=== PATIENT | male | born 1945 | race African-American/Black ===

== ENCOUNTER 2021-02-16 09:55 | Outpatient (CLI) | payer MEDICARE, SELFPAY | END 2021-02-16 09:56 | disposition home or self-care (01) | LOC: ANHAUDASC 09:56 | PROVIDERS: PCP Family Medicine; Visit Provider Otolaryngology | DX: H93.8X3 Other specified disorders of ear, bilateral (principal); H90.3 Sensorineural hearing loss, bilateral | CPT/HCPCS: 92557; 92567 ==

== ENCOUNTER 2021-02-27 18:17 | Outpatient (CLI) | payer MEDICARE, SELFPAY ==
--- NOTE | ~2021-02-27 | XR_ITS ---
XR hip LT min 3V w AP pelvis DATE: 02/27/2021 18:51 INDICATION: Left hip pain. Fall one day ago. TECHNIQUE: AP pelvis. 3 views of the left hip. COMPARISON: None FINDINGS: No pelvic fracture or bone destruction is detected. The pubic symphysis and sacroiliac join ts are intact. No fracture or dislocation, avascular necrosis or bone destruction of the left hip. Clips overlie the prostate bed. Arterial calcifications. IMPRESSION: No pelvic or left hip fracture is detected Reviewed, dictated and finalized at location A. STIGATION DIVISION CAPTAIN
== END 2021-02-27 18:18 | disposition home or self-care (01) ==
PROVIDERS: PCP Family Medicine; Visit Provider Physician Assistant
DX: M25.552 Pain in left hip (principal); Z91.81 History of falling
CPT/HCPCS: 73502

== ENCOUNTER 2021-03-17 16:19 | Outpatient (CLI) | payer MEDICARE, SELFPAY ==
--- NOTE | ~2021-03-17 | XR_ITS ---
EXAMINATION: XR hip LT min 3V w AP pelvis EXAM DATE: 03/17/2021 16:41 INDICATION: M25.552 - Pain in left hip After Recent Fall X 1 Week Ago. TECHNIQUE: Left hip frontal, crosstable lateral and 'frog-leg' projections for interpretation. Fronta l projection pelvis. There is no prior study for comparison. FINDINGS: Possible acute nondisplaced subcapital femoral neck fracture. There is moderate symmetric b ilateral hip primary osteoarthritis. 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 Moder ate bilateral hip osteoarthritis. Scattered vascular calcifications. IMPRESSION: Possible left subcapital femoral neck fracture; recommend CT left hip without contrast. Reviewed, dictated and finalized at location A. CTOR INTERNAL COMMUNICATIONS
== END 2021-03-17 16:20 | disposition home or self-care (01) ==
LOC: ANHIMG 16:25
PROVIDERS: PCP Family Medicine; Visit Provider Family Medicine
DX: M17.12 Unilateral primary osteoarthritis, left knee (principal)
CPT/HCPCS: 73502

== ENCOUNTER 2021-03-25 13:07 | Outpatient (CLI) | payer MEDICARE, SELFPAY ==
--- NOTE | ~2021-03-25 | CT_ITS ---
EXAMINATION: CT hip LT wo con DATE: 03/25/2021 13:36 INDICATION: Left hip pain. TECHNIQUE: Computed tomography (CT) of the left hip was performed without intravenous contrast. Autom ated exposure control and iterative reconstruction technique were employed. The dose-length product w as 350.61 mGy-cm. COMPARISON: Left hip radiographs 03/17/2021, 02/27/2021 FINDINGS: There is diverticulosis of the colon without evidence of diverticulitis. There is a subcapi solomon fracture of left femoral neck. The distal fracture fragment demonstrates impaction and 20 degrees posterior angulation. There is moderate left hip osteoarthritis. IMPRESSION: 1. Subacute subcapital fracture of left femoral neck. 2. Moderate left hip osteoarthritis. Reviewed, dictated and finalized at location B. LEAD FORMER
== END 2021-03-25 13:08 | disposition home or self-care (01) ==
PROVIDERS: PCP Family Medicine; Visit Provider Physician Assistant
DX: M16.12 Unilateral primary osteoarthritis, left hip (principal); S72.012A Unspecified intracapsular fracture of left femur, initial encounter for closed fracture; Z91.81 History of falling; R93.6 Abnormal findings on diagnostic imaging of limbs; K57.30 Diverticulosis of large intestine without perforation or abscess without bleeding
CPT/HCPCS: 73700

== ENCOUNTER 2021-05-29 12:05 | Outpatient (CLI) | payer MEDICARE, SELFPAY ==
--- NOTE | ~2021-05-29 | XR_ITS ---
EXAMINATION: XR chest 2V DATE: 05/29/2021 12:21 INDICATION: Cough, unspecified. TECHNIQUE: Frontal and lateral views of the chest were obtained. COMPARISON: Chest single view 07/27/16 FINDINGS: The chest demonstrates clear lungs without pneumonia, pleural effusion, or pneumothorax. Th e heart size is normal. IMPRESSION: 1. No acute cardiopulmonary disease. Reviewed, dictated and finalized at location A.
== END 2021-05-29 12:06 | disposition home or self-care (01) ==
LOC: ANHIMG 12:08
PROVIDERS: PCP Family Medicine; Visit Provider Nurse Practitioner Family
DX: R05.9 Cough, unspecified (principal)
CPT/HCPCS: 71046

== ENCOUNTER 2021-07-24 15:42 | Outpatient (CLI) | payer MEDICARE, SELFPAY ==
--- NOTE | ~2021-07-24 | XR_ITS ---
XR knee RT 2V DATE: 07/24/2021 16:27 INDICATION: Chronic knee pain TECHNIQUE: AP and lateral views COMPARISON: 01/03/2014 bilateral knees FINDINGS: There is osteopenia. 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 There is severe hypertrophic osteoarthritic change at the patellofemoral compartment. There is periar ticular spurring at the medial and lateral compartments, with moderate loss of medial compartment tala nt space. There is irregularity of the apposing articular cortex of the medial femoral condyle and me dial tibial plateau addition to some eburnation and periarticular spurring. There is chondrocalcinosis. Some probable bone infarcts are noted in the proximal tibial metaphysis and shaft. There is extensive calcification of the femoral, popliteal and trifurcation arteries. IMPRESSION: Prominent tricompartment osteophytosis, most severe at the patellofemoral and medial comp artments Osteopenia Mild knee joint effusion Synovial osteochondromatosis Chondrocalcinosis Proximal tibial bone infarcts Osteopenia Reviewed, dictated and finalized at location B. IMPRESSION: Prominent tricompartment osteophytosis, most severe at the patellof emoral and medial compartments Osteopenia Mild knee joint effusion Synovial osteochondromatosis Chondrocalcinosis Proximal tibial bone infarcts Osteopenia
--- NOTE | ~2021-07-24 | XR_ITS ---
XR knee LT 2V DATE: 07/24/2021 16:27 INDICATION: Chronic knee pain TECHNIQUE: AP, lateral views COMPARISON: None FINDINGS: There is osteopenia. There is severe tricompartment osteophytes, particularly severe with very prominent periarticular spu rring and joint space narrowing at the patellofemoral and medial compartments. There is chondrocalcinosis. No fracture or dislocation, periosteal reaction or bone destruction. Mild patellar knee joint effusio n is suggested., Not as prominent as on 01/03/2014. There is prominent femoral and popliteal and trifurcation artery calcification. IMPRESSION: Severe tricompartment osteoarthritis, particularly at the patellofemoral and medial clari rtments Chondrocalcinosis Mild knee joint effusion Varus deformity Reviewed, dictated and finalized at location B. IMPRESSION: Severe tricompartment osteoarthritis, particularly at the patellofe moral and medial compartments Chondrocalcinosis Mild knee joint effusion Varus deformity
== END 2021-07-24 15:43 | disposition home or self-care (01) ==
LOC: ANHIMG 15:57
PROVIDERS: PCP Family Medicine; Visit Provider Nurse Practitioner Family
DX: M25.561 Pain in right knee (principal); M25.562 Pain in left knee; M17.0 Bilateral primary osteoarthritis of knee; M85.89 Other specified disorders of bone density and structure, multiple sites; M25.462 Effusion, left knee; M25.461 Effusion, right knee; D48.0 Neoplasm of uncertain behavior of bone and articular cartilage; M21.162 Varus deformity, not elsewhere classified, left knee
CPT/HCPCS: 73560

== ENCOUNTER 2021-08-25 18:11 | Emergency (ER) | payer MEDICARE, SELFPAY ==
--- NOTE | ~2021-08-25 | CT_ITS ---
EXAMINATION: CT brain wo con DATE: 08/25/2021 20:17 INDICATION: ELIAS . TECHNIQUE: Computed tomography (CT) of the head was performed without intravenous contrast. The mA wa s adjusted according to patient size. Iterative reconstruction technique was employed. The dose-lengt h product was 605.33 mGy-cm. COMPARISON: 07/27/2016. FINDINGS: No acute intracranial hemorrhage or extra-axial fluid collection. No hydrocephalus, mass, or herniation. Prominent pituitary. No acute ischemic infarct. Unremarkable dural venous sinus attenuation. No acute osseous abnormality. The aerated spaces are clear. Mild atrophy. Moderate chronic white matter change. Atherosclerotic intracranial calcifications. Calc ified choroid plexus at the foramen of Shirley. Left basilar consultation. IMPRESSION: No acute intracranial process. Suggestion of pituitary enlargement, consider nonemergent, outpatient MRI of the pituitary for further evaluation. Reviewed, dictated and finalized at location K. IMPRESSION: No acute intracranial process. Suggestion of pituitary enlargement, consider no nemergent, outpatient MRI of the pituitary for further evaluation.
[2021-08-25 18:19] VITALS: BP 198/80; PULSE 91; RESP 16; TEMP 36.1; O2SAT 100
[2021-08-25 18:52] VITALS: BP 198/80; PULSE 91; RESP 16; TEMP 36.1
[2021-08-25 19:43] VITALS: BP 169/73; PULSE 79; RESP 15; TEMP 36.4; O2SAT 100
--- NOTE | 2021-08-25 19:46 | ED.WEAKNESS ---
HPI - Weakness General Chief complaint: Weakness Stated complaint: overheated Time Seen by Provider: 08/25/21 19:35 History of Present Illness HPI Narrative: Pt presents with complaints of generalized weakness now after being outside in the heat after dialysis. Pt says he was dizzy earlier and had a ELIAS but took antivert and those symptoms have resolved. Pt had a SBP in 220'2 to 240's per family member but SBP is 160's now. Pt on new BP med. Related Data Home Medications Medication Instructions Recorded Confirmed ergocalciferol (vitamin D2) 1,250 1,250 mcg PO MONTHLY 06/13/20 07/22/21 mcg (50,000 unit) capsule (Vitamin D2) fish,flax,primrose,borag 1 cap PO DAILY 06/13/20 07/22/21 oils-om3,6,9 no5 400 mg-400 mg-200 mg capsule ([place] 3-6-9 Fatty Acids) aspirin 81 mg tablet,delayed 81 mg PO DAILY 09/10/20 07/22/21 release (Adult Low Dose Aspirin) acetaminophen 325 mg capsule 325 mg PO .prn PRN 09/12/20 07/22/21 docusate sodium 100 mg tablet 100 mg PO BID 09/12/20 07/22/21 midodrine 2.5 mg tablet 2.5 mg PO .prn 09/12/20 07/22/21 sevelamer HCl 800 mg tablet 800 mg PO TID 09/12/20 07/22/21 Allergies Allergy/AdvReac Type Severity Reaction Status Date / Time No Known Allergies Allergy Verified 08/25/21 19:46 Review of Systems Review of Systems: All systems reviewed & are unremarkable except as noted in HPI and below PMFSH Past Medical History Medical History Anxiety Depression Dialysis patient ESRD (end stage renal disease) Gout HLD (hyperlipidemia) Surgical History Surgical History Status post arthroscopy of right knee Status post creation of arteriovenous fistula Family History Family History Father Hypertension Heart disease Mother Leukemia Son Asthma Hypertension Daughter Hypertension Social History Social History (Reviewed 07/22/21 @ 10:44 by KRISTINE Wilhelm Smoking status: Former smoker Second hand tobacco smoke exposure: No Alcohol intake: never Substance use: never Substance use type: does not use Gender identity (if verbalized by the patient): Male Spiritual care concerns: No Exam Const: General: healthy appearing, no acute distress and alert Nutritional Appearance: well nourished Orientation/consciousness: patient oriented x3 Limitations: no limitations HENMT: Head: normal to inspection Neck: Neck: normal visual inspection and no meningeal signs Resp: Effort & Inspection: normal respiratory effort Auscultation: clear to auscultation bilaterally Cardio: Rate: regular rate Rhythm: regular rhythm GI: GI Palp: Yes Soft to palpation Auscultation: normal bowel sounds Skin: General skin exam: normal color Rashes: no rashes Neuro: General: patient oriented x3, moves all extremities, no meningeal signs, no focal motor deficits and CN's II-XI intact bilaterally Cranial nerves: Yes Nystagmus not present Speech: normal speech Gait exam (Neuro): Normal gait present Other: no dizziness with movement of head Extrem: General: normal to inspection and no clubbing, cyanosis or edema Psych: Mental Status: mental status grossly normal Affect: normal affect Attitude: cooperative Course Vital Signs Vital signs: Vital Signs Temperature 97.0 F L 08/25/21 18:19 Pulse Rate 91 08/25/21 18:19 Respiratory Rate 16 08/25/21 18:19 Blood Pressure 198/80 H 08/25/21 18:19 Pulse Oximetry 100 08/25/21 18:19 Temperature 97.5 F L 08/25/21 19:43 Pulse Rate 76 08/25/21 20:02 Respiratory Rate 15 08/25/21 19:43 Blood Pressure 169/73 H 08/25/21 19:43 Pulse Oximetry 100 08/25/21 19:43 MDM - Weakness Lab Data Result diagrams: 08/25/21 20:00 08/25/21 19:59 Labs: Lab Results 08/25/21 08/25/21 Range/Units 19:59 20:00
--- NOTE | 2021-08-25 19:50 | ECG_ITS ---
Measurements Intervals [place] Rate: 75 P: MN: 0 QRS: 24 QRSD: 115 T: 38 QT: 409 QTc: 458 Interpretive Statements SINUS RHYTHM WITH A TYPE 1 SECOND-DEGREE AV BLOCK DELAYED R-WAVE PROGRESSION ABNORMAL ECG NO PREVIOUS ECG AVAILABLE FOR COMPARISON Electronically Signed On 08-26-2021 10:00:30 CDT by Shyam Gabriel M.D.
[2021-08-25 20:02] VITALS: PULSE 76
[2021-08-25 20:14] LABS: Eosinophils Percent Auto 0.5 % (0-4.4); Hematocrit 35.4 % (42.0-52.0); Hemoglobin 11.5 g/dL (14.0-18.0); Immature Granulocyte Absolute 0.02 K/mm3 (0.00-0.031); Immature Granulocyte Percent A 0.5 % (0-0.5); Lymphocytes Absolute Auto 0.52 K/mm3 (0.9-3.2); Lymphocytes Percent Auto 13.5 % (18.3-44.2); Mean Corpuscular HGB Conc 32.5 g/dl (32-36); Mean Corpuscular Hemoglobin 32.9 pg (26-34); Mean Corpuscular Volume 101.1 fl (80-100); Mean Platelet Volume 10.6 fl (7.4-10.4); Monocytes Absolute Auto 0.3 K/mm3 (0.1-0.6); Monocytes Percent Auto 8.6 % (2.6-8.5); Neutrophils Percent Auto 76.9 % (45.5-73.1); Platelet Count Result 148 k/mm3 (150-375); Red Cell Distribution Width 13.8 % (11.5-14.5); White Blood Count 3.8 K/mm3 (4.5-10.0)
[2021-08-25 20:17] LABS: Alanine Aminotransferase 18 U/L (6-50); Albumin Level 4.5 g/dL (3.5-5.1); Alkaline Phosphatase 62 U/L (38-126); Anion Gap 6 mmol/L (8-16); Aspartate Amino Transferase 27 U/L (17-59); Bilirubin,Total 0.5 mg/dL (0.2-1.3); Blood Urea Nitrogen 19 mg/dL (9-20); Calcium 9.6 mg/dL (8.4-10.2); Carbon Dioxide 33 mmol/L (22-30); Chloride 97 mmol/L (98-107); Estimated CRCL calculation 14 ml/min; Estimated Glomerular Filt Rate 16; Glucose 121 mg/dL (65-110); Potassium 4.2 mmol/L (3.4-5.0); Sodium 136 mmol/L (137-145)
[2021-08-25 21:20] VITALS: BP 159/78; PULSE 81; RESP 19; O2SAT 100
== END 2021-08-25 21:22 | disposition home or self-care (01) ==
PROVIDERS: Emergency Provider Emergency Medicine; PCP Family Medicine
DX: R53.1 Weakness (principal); N18.6 End stage renal disease; Z99.2 Dependence on renal dialysis; E78.5 Hyperlipidemia, unspecified; M10.9 Gout, unspecified; Z87.891 Personal history of nicotine dependence; Z79.82 Long term (current) use of aspirin; I44.1 Atrioventricular block, second degree
CPT/HCPCS: 36415; 70450; 80053; 85025; 93005; 99284

== ENCOUNTER 2021-12-19 12:56 | Emergency (ER) | payer MEDICARE, SELFPAY ==
[2021-12-19 12:57] VITALS: BP 163/77; PULSE 70; RESP 18; O2SAT 100
[2021-12-19 13:00] VITALS: BP 163/77; PULSE 67; O2SAT 100
[2021-12-19] MEDS: LIDOCAINE, EPINEPHRINE, TETRACAINE VISCOUS SOLN 3 ML TOPICAL (13:19)
--- NOTE | 2021-12-19 13:19 | ED.GENADULT ---
HPI - General Adult General Chief complaint: Unspecified Stated complaint: fistula issues Time Seen by Provider: 12/19/21 12:59 Source: patient and RN notes reviewed Mode of arrival: EMS Limitations: no limitations History of Present Illness HPI narrative: This is a 76 year old male who presents for evaluation of bleeding dialysis catheter . Patient completed his dialysis 2 hours ago and they have been unable to get area to stop bleeding. They have been intermittently applying pressure with clamp for 2 hours. HE reports there is small area to continue to have slow ooze. He feels some fatigue. He denies chest pain, sob, dizziness. Related Data Home Medications Medication Instructions Recorded Confirmed ergocalciferol (vitamin D2) 1,250 1,250 mcg PO MONTHLY 06/13/20 11/13/21 mcg (50,000 unit) capsule (Vitamin D2) fish,flax,primrose,borag 1 cap PO DAILY 06/13/20 11/13/21 oils-om3,6,9 no5 400 mg-400 mg-200 mg capsule ([place] 3-6-9 Fatty Acids) aspirin 81 mg tablet,delayed 81 mg PO DAILY 09/10/20 11/13/21 release (Adult Low Dose Aspirin) acetaminophen 325 mg capsule 325 mg PO .prn PRN 09/12/20 11/13/21 docusate sodium 100 mg tablet 100 mg PO BID 09/12/20 11/13/21 midodrine 2.5 mg tablet 2.5 mg PO .prn 09/12/20 11/13/21 sevelamer HCl 800 mg tablet 800 mg PO TID 09/12/20 11/13/21 Allergies Allergy/AdvReac Type Severity Reaction Status Date / Time No Known Allergies Allergy Verified 11/13/21 10:13 Review of Systems Review of Systems: All systems reviewed & are unremarkable except as noted in HPI and below Constitutional: Constitutional: Reports fatigue Eyes: Eyes: Denies blurry vision and Denies exophthalmos Respiratory: Respiratory: Denies hemoptysis Hematologic/Lymphatic: Hematologic/Lymphatic: Denies easy bleeding and Denies easy bruising PMFSH Past Medical History Medical History Anxiety Depression Dialysis patient ESRD (end stage renal disease) Gout HLD (hyperlipidemia) Surgical History Surgical History Status post arthroscopy of right knee Status post creation of arteriovenous fistula Family History Family History Father Hypertension Heart disease Mother Leukemia Son Asthma Hypertension Daughter Hypertension Social History Social History Smoking status: Former smoker Second hand tobacco smoke exposure: No Alcohol intake: never Substance use: never Substance use type: does not use Gender identity (if verbalized by the patient): Male Spiritual care concerns: No Exam Const: General: cooperative, healthy appearing and alert Nutritional Appearance: average body habitus Orientation/consciousness: patient oriented x3 Limitations: no limitations HENMT: Head: normal to inspection Mouth: Yes Normal oral and palatal mucosa present, Yes lip normal, Yes oropharynx normal and Yes moist mucous membranes Eyes: EOM: EOMs intact bilaterally Chest: Chest palpation & inspection: normal inspection of the chest Resp: Effort & Inspection: normal respiratory effort Cardio: Other: left arm AV fistula Skin: Other: there appears to be small puncture site at left fistula that will bleeding bright red when pressure taken off Neuro: General: patient oriented x3 and moves all extremities Cranial nerves: Yes CN's II-XII intact bilaterally Cognition (Neuro): normal cognition Speech: normal speech Motor exam (neuro): 5/5 motor strength present throughout Extrem: General: normal to inspection Psych: Appearance: grossly normal Mental Status: mental status grossly normal Course Reevaluation(s) Reevaluation #1: I placed in stitch at small puncture site of AV fistula. Bleeding has stopped. Bandage is in place. We have monitor
[2021-12-19 14:29] LABS: Basophils Percent Auto 0.5 % (0.2-1.2); Eosinophils Absolute Auto 0.1 K/mm3 (0-0.3); Eosinophils Percent Auto 2.1 % (0-4.4); Hematocrit 35.7 % (42.0-52.0); Hemoglobin 11.9 g/dL (14.0-18.0); Immature Granulocyte Absolute 0.02 K/mm3 (0.00-0.031); Immature Granulocyte Percent A 0.5 % (0-0.5); Lymphocytes Absolute Auto 1.32 K/mm3 (0.9-3.2); Lymphocytes Percent Auto 30.4 % (18.3-44.2); Mean Corpuscular HGB Conc 33.3 g/dl (32-36); Mean Corpuscular Hemoglobin 33.2 pg (26-34); Mean Corpuscular Volume 99.7 fl (80-100); Mean Platelet Volume 10.2 fl (7.4-10.4); Monocytes Absolute Auto 0.4 K/mm3 (0.1-0.6); Monocytes Percent Auto 9.7 % (2.6-8.5); Neutrophils Absolute Auto 2.5 K/mm3 (1.3-6.7); Neutrophils Percent Auto 56.8 % (45.5-73.1); Platelet Count Result 158 k/mm3 (150-375); Red Blood Count 3.58 M/mm3 (4.6-6.20); Red Cell Distribution Width 13.7 % (11.5-14.5); White Blood Count 4.3 K/mm3 (4.5-10.0)
[2021-12-19 14:39] LABS: Prothrombin Time 12.8 Seconds (11.1-14.7)
[2021-12-19 15:11] VITALS: BP 166/74; PULSE 72
[2021-12-19 15:15] VITALS: BP 161/74; PULSE 73
[2021-12-19] MEDS: CELLULOSE OXIDIZED 2 x 14 INCH 1 PKT XX (15:15)
[2021-12-19 15:30] VITALS: BP 159/71
== END 2021-12-19 16:30 | disposition home or self-care (01) ==
PROVIDERS: Emergency Provider General Practice; PCP Family Medicine
DX: T82.838A Hemorrhage due to vascular prosthetic devices, implants and grafts, initial encounter (principal); N18.6 End stage renal disease; E78.5 Hyperlipidemia, unspecified; M10.9 Gout, unspecified; F41.9 Anxiety disorder, unspecified; F32.A Depression, unspecified; Z99.2 Dependence on renal dialysis; Z79.82 Long term (current) use of aspirin; Z87.891 Personal history of nicotine dependence; Y84.1 Kidney dialysis as the cause of abnormal reaction of the patient, or of later complication, without mention of misadventure at the time of the procedure
CPT/HCPCS: 12002; 36415; 85025; 85610; 85730; 99283

== ENCOUNTER 2022-06-22 16:32 | Outpatient (CLI) | payer MEDICARE, SELFPAY ==
--- NOTE | ~2022-06-22 | XR_ITS ---
EXAM: XR mandible min 4V DATE: 06/22/2022 17:27 HISTORY: R68.84 - Jaw pain. FELL, HAS LUMP ABOUT AN INCH ABOVE CHIN . COMPARISON: None available. FINDINGS: Symmetric orbits. Aerated spaces are clear. Extensive dental restorations including a dent al implant. Suggestion of perihilar hardware lucency surrounding the implant. Degenerative changes in the cervical spine.. IMPRESSION: No acute osseous finding in the mandible. Possible perihilar hardware lucency at the dent al implant, this may represent hardware related complication, consider dental referral. Reviewed, dictated and finalized at location K. IMPRESSION: No acute osseous finding in the mandible. Possible perihilar hardwa re lucency at the dental implant, this may represent hardware related complicat ion, consider dental referral.
== END 2022-06-22 16:33 | disposition home or self-care (01) ==
PROVIDERS: PCP Family Medicine; Visit Provider Physician Assistant
DX: R68.84 Jaw pain (principal)
CPT/HCPCS: 70110

== ENCOUNTER 2022-11-29 16:11 | Outpatient (CLI) | payer OTHER, SELFPAY ==
[2022-11-29 17:34] LABS: HIV 1/2 Ab P24 Ag Result Negative (Negative)
[2022-11-29 17:59] LABS: Hepatitis C Virus Antibody Negative (Negative)
[2022-12-02 12:07] LABS: Hepatitis B Surface Antigen Negative (Negative)
[2022-12-03 19:41] LABS: Hepatitis Be Antigen Nonreactive
== END 2022-11-29 16:12 | disposition home or self-care (01) ==
PROVIDERS: PCP Family Medicine; Visit Provider Surgery
DX: Z13.9 Encounter for screening, unspecified (principal); W26.9XXA Contact with unspecified sharp object(s), initial encounter
CPT/HCPCS: 36415; 86703; 86803; 87340; 87350; G0432

== ENCOUNTER 2023-07-08 09:41 | Outpatient (CLI) | payer MEDICARE, SELFPAY | END 2023-07-08 09:42 | disposition home or self-care (01) | LOC: ANHAUDASC 09:42 → ANHAUDIO 09:47 | PROVIDERS: PCP Family Medicine; Visit Provider Physician Assistant | DX: H91.93 Unspecified hearing loss, bilateral (principal) | CPT/HCPCS: 99199 ==

== ENCOUNTER 2023-07-25 09:30 | Outpatient (CLI) | payer MEDICARE, SELFPAY ==
[2023-07-25 10:00] LABS: Basophils Percent Auto 0.6 % (0.2-1.2); Eosinophils Absolute Auto 0.1 K/mm3 (0-0.3); Eosinophils Percent Auto 1.9 % (0-4.4); Hematocrit 31.5 % (42.0-52.0); Hemoglobin 10.2 g/dL (14.0-18.0); Immature Granulocyte Absolute 0.02 K/mm3 (0.00-0.031); Immature Granulocyte Percent A 0.6 % (0-0.5); Lymphocytes Percent Auto 35.4 % (18.3-44.2); Mean Corpuscular HGB Conc 32.4 g/dl (32-36); Mean Corpuscular Hemoglobin 33.8 pg (26-34); Mean Corpuscular Volume 104.3 fl (80-100); Mean Platelet Volume 10.2 fl (7.4-10.4); Monocytes Absolute Auto 0.3 K/mm3 (0.1-0.6); Monocytes Percent Auto 9.6 % (2.6-8.5); Neutrophils Absolute Auto 1.6 K/mm3 (1.3-6.7); Neutrophils Percent Auto 51.9 % (45.5-73.1); Platelet Count Result 167 k/mm3 (150-375); Red Blood Count 3.02 M/mm3 (4.6-6.20); Red Cell Distribution Width 14.8 % (11.5-14.5); White Blood Count 3.1 K/mm3 (4.5-10.0)
[2023-07-25 11:00] LABS: Alanine Aminotransferase 17 U/L (6-50); Albumin Level 4.3 g/dL (3.5-5.1); Alkaline Phosphatase 45 U/L (38-126); Anion Gap 13 mmol/L (4-12); Aspartate Amino Transferase 26 U/L (17-59); Bilirubin,Total 0.6 mg/dL (0.2-1.3); Blood Urea Nitrogen 68 mg/dL (9-20); Calcium 9.7 mg/dL (8.4-10.2); Carbon Dioxide 30 mmol/L (22-30); Chloride 100 mmol/L (98-107); Cholesterol 119 mg/dL (0-200); Estimated Glomerular Filt Rate 7; Glucose 84 mg/dL (65-110); HDL Direct 51 mg/dL; Potassium 4.4 mmol/L (3.4-5.0); Sodium 143 mmol/L (137-145); Triglycerides 105 mg/dL (<150)
[2023-07-25 11:12] LABS: LDL Cholesterol Direct 47 mg/dL
[2023-07-25 13:21] LABS: Hemoglobin A1C 4.9 % (<5.7)
[2023-07-25 23:31] LABS: Folic Acid > 20.0 ng/mL (2.76->20)
== END 2023-07-25 09:31 | disposition home or self-care (01) ==
LOC: ANHLAB 09:32
PROVIDERS: PCP Family Medicine; Visit Provider Physician Assistant
DX: E11.9 Type 2 diabetes mellitus without complications (principal); R20.0 Anesthesia of skin; R20.2 Paresthesia of skin; I12.0 Hypertensive chronic kidney disease with stage 5 chronic kidney disease or end stage renal disease; N18.6 End stage renal disease; D64.9 Anemia, unspecified; D63.1 Anemia in chronic kidney disease
CPT/HCPCS: 36415; 80053; 80061; 82607; 82746; 83036; 84443; 85025

== ENCOUNTER 2023-09-20 13:44 | Outpatient (CLI) | payer MEDICARE, SELFPAY | END 2023-09-20 13:45 | disposition home or self-care (01) | LOC: ANHAUDIO 13:44 | PROVIDERS: PCP Family Medicine; Visit Provider Physician Assistant | DX: H90.3 Sensorineural hearing loss, bilateral (principal) | CPT/HCPCS: 92557; 92567 ==

== ENCOUNTER 2023-10-12 09:59 | Outpatient (CLI) | payer MEDICARE, SELFPAY ==
--- NOTE | 2023-10-12 11:30 | NEURO_ITS ---
Impression: # Complains of numbness of hands. CRD with 3 times a week hemodialysis. # Bilateral moderate Carpal Tunnel Syndrome. # Bilateral ulnar neuropathy across the elbows of mild degree. # Abnormal Needle/EMG exam. Nerve Conduction Studies Anti Sensory Summary Table Stim Site NR Peak (ms) P-T Amp (?V) Site1 Site2 Delta-P (ms) Dist (cm) Gary (m/s) Left Median Anti Sensory (2-3nd Digit) Wrist 5.7 18.9 Wrist 2-3nd Digit 5.7 14.0 25 Wrist 6.2 7.0 Wrist 2-3nd Digit 5.7 14.0 25 Right Median Anti Sensory (2-3nd Digit) Wrist 6.3 15.9 Wrist 2-3nd Digit 6.3 14.0 22 Wrist 5.2 23.6 Wrist 2-3nd Digit 6.3 14.0 22 Left Radial Anti Sensory (Base 1st Digit) Wrist 2.5 6.8 Wrist Base 1st Digit 2.5 0.0 Right Radial Anti Sensory (Base 1st Digit) Wrist 2.9 5.2 Wrist Base 1st Digit 2.9 0.0 Left Ulnar Anti Sensory (5th Digit) Wrist 3.4 29.4 Wrist 5th Digit 3.4 14.0 41 Right Ulnar Anti Sensory (5th Digit) Wrist 3.8 31.2 Wrist 5th Digit 3.8 14.0 37 Motor Summary Table Stim Site NR Onset (ms) O-P Amp (mV) Site1 Site2 Delta-0 (ms) Dist (cm) Gary (m/s) Left Median Motor (Abd Poll Brev) Wrist 5.5 2.5 Elbow Wrist 6.1 32.0 52 Elbow 11.6 0.7 Right Median Motor (Abd Poll Brev) Wrist 5.9 2.6 Elbow Wrist 6.4 32.0 50 Elbow 12.3 3.4 Left Ulnar Motor (Abd Dig Minimi) Wrist 2.5 4.1 A Elbow Wrist 7.3 34.0 47 A Elbow 9.8 1.8 B Elbow Wrist 5.8 28.0 48 B Elbow 8.3 2.0 Right Ulnar Motor (Abd Dig Minimi) Wrist 2.9 5.2 A Elbow Wrist 7.7 35.0 45 A Elbow 10.6 2.9 B Elbow Wrist 5.0 25.0 50 B Elbow 7.9 4.2 F Wave Studies NR F-Lat (ms) L-R F-Lat (ms) Left Median (Mrkrs) (Abd Poll Brev) 35.91 1.46 Right Median (Mrkrs) (Abd Poll Brev) 37.37 1.46 Left Ulnar (Mrkrs) (Abd Dig Min) 33.13 0.00 Right Ulnar (Mrkrs) (Abd Dig Min) 33.13 0.00 EMG Side Muscle Nerve Root Ins Act Fibs Amp Dur Recrt Comment Right 1stDorInt Ulnar C8-T1 Nml Nml Nml >12ms +1 Right Ext Indicis Radial (Post Int) C7-8 Nml Nml Nml Nml Nml Right Ext Digitorum Radial (Post Int) C7-8 Nml Nml Nml Nml Nml Right BrachioRad Radial C5-6 Nml Nml Nml Nml Nml Right PronatorTeres Median C6-7 Nml Nml Nml Nml Nml Right Abd Poll Brev Median C8-T1 Nml Nml Nml >12ms +2 Right ABD Dig Min Ulnar C8-T1 Nml Nml Nml Nml Nml Left 1stDorInt Ulnar C8-T1 Nml Nml Nml >12ms +1 Left Ext Indicis Radial (Post Int) C7-8 Nml Nml Nml Nml Nml Left Ext Digitorum Radial (Post Int) C7-8 Nml Nml Nml Nml Nml Left BrachioRad Radial C5-6 Nml Nml Nml Nml Nml Left PronatorTeres Median C6-7 Nml Nml Nml Nml Nml Left Abd Poll Brev Median C8-T1 Nml Nml Nml >12ms +2 Left ABD Dig Min Ulnar C8-T1 Nml Nml Nml Nml Nml MTDD
== END 2023-10-12 10:00 | disposition home or self-care (01) ==
LOC: ANHNEURO 10:01
PROVIDERS: PCP Family Medicine; Visit Provider Physician Assistant
DX: R20.0 Anesthesia of skin (principal); R20.2 Paresthesia of skin; G56.03 Carpal tunnel syndrome, bilateral upper limbs; G56.23 Lesion of ulnar nerve, bilateral upper limbs
CPT/HCPCS: 95886; 95911

== ENCOUNTER 2023-10-28 15:07 | Outpatient (CLI) | payer MEDICARE, SELFPAY ==
--- NOTE | ~2023-10-28 | XR_ITS ---
EXAMINATION: XR chest 2V 10/28/2023 15:29 INDICATION: Cough PROCEDURE: 2 view chest COMPARISON: 05/29/2021 FINDINGS: The lungs are clear. The cardiomediastinal silhouette is within normal limits. There are no pleural effusions. There is no pneumothorax suspected. IMPRESSION: 1: NO ACUTE CARDIOPULMONARY DISEASE. Reviewed, dictated and finalized at location B.
== END 2023-10-28 15:08 | disposition home or self-care (01) ==
PROVIDERS: PCP Family Medicine; Visit Provider Physician Assistant
DX: R05.9 Cough, unspecified (principal)
CPT/HCPCS: 71046

== ENCOUNTER 2024-03-08 14:06 | Outpatient (CLI) | payer MEDICARE, SELFPAY ==
--- NOTE | ~2024-03-08 | XR_ITS ---
XR wrist RT min 3V Ordering provider: Melisa Neely PA-C History: . M25.531 - Pain in right wrist, effusion . Comparison: None. FINDINGS: BONES: No acute fracture or dislocation. No definite scaphoid fracture. Cystic changes in the scapho id and lunate bones. JOINT SPACES: Normal. SOFT TISSUES: Vascular calcifications. IMPRESSION: No acute osseous abnormality right wrist. Osteoarthritic changes of the scapholunate joint. Reviewed, dictated and finalized at location A. CLEANING MANAGER
== END 2024-03-08 14:07 | disposition home or self-care (01) ==
PROVIDERS: PCP Family Medicine; Visit Provider Physician Assistant Medical
DX: M19.031 Primary osteoarthritis, right wrist (principal)
CPT/HCPCS: 73110

== ENCOUNTER 2024-05-10 17:59 | Inpatient (IN) | payer MEDICARE, SELFPAY ==
--- NOTE | ~2024-05-10 | XR_ITS ---
XR chest 1V portable Ordering provider: Lola Sepulveda MD History: 78 years Male with . fever . Comparison: October 28, 2023 FINDINGS: MEDIASTINUM: The cardiac silhouette is not enlarged. Congestive avery. LUNGS: No effusions or pneumothorax. Opacification in the left lung base seen suggestive of atelectasis versus pneumonia. OTHER: No free air under the diaphragm. Degenerative changes of the spine. IMPRESSION: Left basal atelectasis versus pneumonia. Reviewed, dictated and finalized at location A. SMELLER
--- NOTE | ~2024-05-10 | CT_ITS ---
CT brain wo con Ordering provider: Alexandria Mcrae PA-C History: 78 years Male with . AMS . Comparison: August 25, 2021 Technique: CT of the head without contrast. Radiation reduction technique utilized. The dose-length product was 605.33 mGy-cm. FINDINGS: BRAIN PARENCHYMA AND CSF SPACES: No midline shift, mass effect or hemorrhage. The brain parenchyma a nd CSF spaces are otherwise normal. VISUALIZED PARANASAL SINUSES: Well aerated. MASTOIDS: Well aerated. BONES: The bones appear intact. SOFT TISSUES: Visualized nasopharynx is normal. Superficial soft tissues are normal. IMPRESSION: No acute intracranial findings. Reviewed, dictated and finalized at location A. SCHOOL CUSTODIAN
--- OUTSIDE RECORDS SUMMARY | 2024-05-10 18:04 | XMS_ITS | Clinical Summary ---
Author Organization [facility] Address [address] [place] [address] Phone Care Team Providers Care Peoplesoft Programmer Name Role Phone Rudy Estrada MD Primary Care Provider Unavail able Allergies No known active allergies Medications meclizine (ANTIVERT) 25 mg tablet Take one tablet every 8 hours as needed for vertigo 5 Tablet 01/06/2018 12:31 PM CDT 8 Active allopurinoL (ZYLOPRIM) 100 mg tablet Take 100 mg by mouth. Active ALPRAZolam (XANAX) 0.25 mg tablet TK 1 T PO BID 8 Active amLODIPine (NORVASC) 10 mg tablet TK 1 T PO QD 9 Active atenoloL (TENORMIN) 100 mg tablet Take 100 mg by mouth. 0 Active atorvastatin (LIPITOR) 80 mg tablet TK 1 T PO QD 0 Active blood sugar diagnostic (OneTouch Ultra Blue Test Strip) Strip TEST DAILY UTD 0 Active vitamin B complex-vitamin C-folic acid (Triphrocaps) 1 mg Capsule TAKE 1 CAPSULE DAILY 0 Active cloNIDine HCL (CATAPRES) 0.1 mg tablet 0 Active ergocalciferol (VITAMIN D2) 50,000 unit capsule TAKE ONE CAPSULE BY MOUTH EVERY 30 DAYS 0 Active furosemide (LASIX) 40 mg tablet TK 2 TS PO IN THE MORNING AND 2 TS IN THE EVENING 0 Active hydrALAZINE (APRESOLINE) 50 mg tablet TK 1 T PO TID 0 Active metoprolol succinate (TOPROL XL) 25 mg Extended Release 24 hour tablet Take 25 mg by mouth. 0 Active nateglinide (STARLIX) 120 mg Tablet Active paricalcitoL (ZEMPLAR) 1 mcg Capsule TAKE 1 CAPSULE(1 MCG) BY MOUTH DAILY 0 Active sevelamer carbonate (RENVELA) 800 mg Tablet 0 Active sodium bicarbonate 650 mg tablet 0 Active triamcinolone acetonide (KENALOG) 0.1 % Ointment APPLY A THIN LAYER TO THE AFFECTED AREA TWICE DAILY 0 Active Active Problems Problem Noted Date Diagnosed Date Anemia of chronic renal failure, stage 5 020 Social History Tobacco Use Types Packs/Day Years Used Date Smoking Tobacco: Former Cigarettes 0.5 10 1 04/06/1979 - 02/04/1990 Smokeless Tobacco: Never Tobacco Cessation:Counseling Given: No Alcohol Use Standard Drinks/Week Comments Never 0 (1 standard drink = 0.6 oz pur e alcohol) Sex and Gender Information Value Date Recorded Sex Assigned at Not on file Legal Sex Male 11:35 AM CDT Gender Identity Not on file Sexual Orientation Not on file Last Filed Vital Signs Vital Sign Reading Time Taken Comments Blood Pressure 163/78 05/09/2020 11:11 AM SAWDUST MACHINE OPERATOR Pulse 63 05/09/2020 11:11 AM SAWDUST MACHINE OPERATOR Temperature 36.4 C (97.5 F) 05/09/2020 11:11 AM SAWDUST MACHINE OPERATOR Respiratory Rate - - Oxygen Saturation 98% 05/09/2020 11: 11 AM SAWDUST MACHINE OPERATOR Inhaled Oxygen Concentration - - Weight 106.5 kg (234 lb 14.4 oz) 2020 11:11 AM SAWDUST MACHINE OPERATOR Height 182.9 cm (6') 05/09/2020 11:11 AM SAWDUST MACHINE OPERATOR Body Mass Index 31.86 05/09/2020 11:11 AM SAWDUST MACHINE OPERATOR Plan of Treatment Health Maintenance Due Date Last Done Comments DTAP/TDAP/TD VACCINES (1 - Tdap) 06/06/1962 ZOSTER VACCINE (1 of 2) 06/06/1993 RSV VACCINE (60+ or ) (1 - 1-dose 75+ series) 06/06/2018 INFLUENZA VACCINE (#1) 2023 12/27/2019 PNEUMOCOCCAL VACCINE 50+ YEARS Completed 02/13/2014 , 02/28/2012 Care Teams Peoplesoft Programmer Relationship Specialty Start Date End Date Rudy Estrada MD PCP - General Internal Medicine 02/05/20
--- OUTSIDE RECORDS SUMMARY | 2024-05-10 18:04 | XMS_ITS ---
Author Organization [facility] Address [address] [place] [address] Care Team Providers Care Hydrometeorologist Name Role Phone Silke Wilson DO Primary Care Provider Unavailabl e zzzzMigration, zzzzProvider Unavailable Unav ailable Allergies Allergen (clinical drug ingredient) Drug/Non Drug Allergy documented on EMR Reaction Allergy Type Onset Date Status Non-steroidal anti-inflammatory agent (FN) NSAIDs Notes: RENAL FAILURE Drug Allergy 11/18/2004 Active REASON FOR VISIT EMR-Rogelio Medications Medication SIG (Take, Route, Frequency, Duration) Notes Start Date End Date Status Ferrous Sulfate 324 (65 Fe) MG take 1 tablet by oral route 2 times a day Oral 2 Active RENAL CAPS 1 mg take 1 capsule by oral route once daily Oral 1 *Reorder from [employer] for eRx and Interaction Alerts* Active OneTouch Ultra TEST DAILY DIRECTED In Vitro 09/20/2019 Active Triamcinolone Acetonide 0.10% apply a thin layer to the affected area(s) by topical route 2 times per day External 2 02/20/2020 Active Vitamin D (Ergocalciferol) 45409 UNIT take 1 capsule (50,000 unit) by oral route once weekly Oral [id number] Active Sodium Bicarbonate 650 MG take 1 tablet by oral route daily Oral 1 Active Lasix 40 MG take 1 tablet (40 mg) by oral route 2 times per day Oral 2 Active Encounters Encounter Location Date Provider Diagnosis [facility] [address] [address] [place] [address] 01/02/2023 zzzzProvider zzzzMigration Plan Of Treatment No Information Progress Notes * Oscar PRETTY JrDOB: (78 yo M)Acc No.[id number]:01/02/2023 Patient: Oscar LYNN Jr :1945 A ge:77 Y S ex:Male Address:[address] [facility] [address] Subjective: * Chief Complaints: * E MR-Rogelio * Medical History: * Surgical History: * Hospitalization/Major Diagno stic Procedure: * Family History: F ather: Father Notes: at 69 from a stroke . M igrated Family History: Sibling-Sister Notes: 9 other siblings are healthy apparently 1-2 of them have dementia . M other: Mother Notes: of leukemia at 55 . B rother: Sibling-Brother Notes: 2 brothers one with hypertension and related problems and one with coronary artery disease . * Social History: M igrated Social History: M igrated Social History: Marital Status :: , Occupation :: disability , Substance Use :: Alcohol - No significant history of usage , Substance Use :: Tobacco :: Never. * Medications: T akingRENAL CAPS 1 mg Capsule take 1 capsule by oral route once daily Oral 1 , Notes to Pharmacist: *Reorder from [employer] for eRx and Interaction Alerts*Triamcinolone Acetonide 0.10% Ointment apply a thin layer to the affected area(s) by topical route 2 times per day External 2 Ferrous Sulfate 324 (65 Fe) MG Tablet Delayed Release take 1 tablet by oral route 2 times a day Oral 2 Lasix 40 MG Tablet take 1 tablet (40 mg) by oral route 2 times per day Oral 2 OneTouch Ultra Strip TEST DAILY DIRECTED In Vitro OneTouch Ultra Strip test blood sugar once daily In Vitro Vitamin D (Ergocalciferol) 47027 UNIT Capsule take 1 capsule (50,000 unit) by oral route once weekly Oral [id number] Sodium Bicarbonate 650 MG Tablet take 1 tablet by oral route daily Oral 1 Taking RENAL CAPS 1 mg Capsule take 1 capsule by oral route once daily Oral 1 , Notes to Pharmacist: *Reorder from [employer] for eRx and Interaction Alerts*Taking Triamcinolone Acetonide 0.10% Ointment apply a thin layer to the affected area(s) by topical route 2 times per day External 2 Taking Ferrous Sulfate 324 (65 Fe) MG Tablet Delayed Release take 1 tablet by oral route 2 times a day Oral 2 Taking Lasix 40 MG Tablet take 1 tablet (40 mg) by oral route 2 times per day Oral 2 Taking OneTouch Ultra Strip TEST DAILY DIRECTED In Vitro Taking OneTouch Ultra Strip test blood sugar once daily In Vitro Taking Vitamin D (Ergocalciferol) 75561 UNIT Capsule take 1 capsule (50,000 unit) by oral route once weekly Oral 0.089987440340126 Taking Sodium Bicarbonate 650 MG Tablet take 1 tablet by oral route daily Oral 1 * Allergies: N SAIDs: Notes: RENAL FAILURE - Allergy - Onset Date 11/18/2004 Objective: * Vitals: * Physical Examination: Assessment: Plan: * Treatment: * Procedure Codes: * * Date:
--- OUTSIDE RECORDS SUMMARY | 2024-05-10 18:04 | XMS_ITS | Patient Health Record ---
Author Organization [facility] Address [address] [place] [address] Care Team Providers Care Canine Service Instructor Trainer Name Role Phone Steve HARRIS Silke Primary Care Provider Unavailabl e Reason For Referral No Information Medications Medication SIG (Take, Route, Frequency, Duration) Notes Start Date End Date Status Ferrous Sulfate 324 (65 Fe) MG take 1 tablet by oral route 2 times a day Oral 2 Active RENAL CAPS 1 mg take 1 capsule by oral route once daily Oral 1 *Reorder from [employer] for eRx and Interaction Alerts* Active OneTouch Ultra TEST DAILY DIRECTED In Vitro 09/20/2019 Active Sodium Bicarbonate 650 MG take 1 tablet by oral route daily Oral 1 Active Triamcinolone Acetonide 0.10% apply a thin layer to the affected area(s) by topical route 2 times per day External 2 02/20/2020 Active Vitamin D (Ergocalciferol) 66805 UNIT take 1 capsule (50,000 unit) by oral route once weekly Oral 0.677250818105786 Active Lasix 40 MG take 1 tablet (40 mg) by oral route 2 times per day Oral 2 Active Immunizations Vaccine Route Administration Date Status Comme nts Td (adult) Unknown 05/07/2008 Administered migrated LegPatid= [id number] Date=05/07/2008 Vac= TD Pneumococcal conjugate PCV 13 Unknown 02/09/2007 Administered migrated LegPatid= [id number] Date=02/09/2007 Vac= Pneumonia vaccine Pneumococcal conjugate PCV 13 IM Intramuscular 05/19/2015 Administered Infuenza, trivalent, recombinant, preservative free Unknown 02/09/2007 Administered migrated LegPatid= [id number] Date=02/21/2003 Vac= Influenza Influenza high dose > 65 [facility] IM Intramuscular 11/28/2015 Administered Influenza high dose > 65 [facility] IM Intramuscular 01/05/2017 Administered Influenza high dose > 65 [facility] IM Intramuscular 12/30/2017 Administered Influenza high dose > 65 [facility] IM Intramuscular 01/25/2019 Administered Problems Problem Type SNOMED Code ICD Code Onset Dates Problem Status W/U Status Risk Notes Problem Generalized anxiety disorder (71077456) Generalized anxiety disorder (300.02) 2004 Active confirmed Problem Nephrotic syndrome (47579562) Nephrotic syndrome (581) 2005 Active confirmed 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 Creatinine 5.2010. dialysis pending Problem Chronic kidney disease (disorder) (293008588) Chronic kidney disease (CKD) (585) 2005 Active confirmed dialysis pending Anemia, on Procrit. secondary hyperparathyro idism. On zemplar, PTH around 180 Problem Malignant tumor of prostate (453332359) Malignant neoplasm of prostate (C61) Active confirmed radiation therapy 02/2013 Problem Pure hypercholesterolem ia (254424748) Pure hypercholesterol emia (E78.0) 2004 Active confirmed Problem Major depression, single episode (42228016) Major depressive disorder, single episode, unspecified (F32.9) Active confirmed Problem Osteoarthritis (527636102) Unspecified osteoarthritis, unspecified site (M19.90) 2004 Active confirmed BOTH KNEES Problem Chronic kidney disease stage 4 (040867956) Chronic kidney disease, stage 4 (severe) (N18.4) 2016 Active confirmed Problem Erectile dysfunction (disorder) (333989312) Male erectile dysfunction, unspecified (N52.9) 2008 Active confirmed Problem Electrocardiogram abnormal (720289898) Abnormal electrocardiogra m [ECG] [EKG] (R94.31) 2016 Active confirmed Problem Type II diabetes mellitus without complication (536206277) Type 2 diabetes mellitus without complications (E11.9) 2004 Active confirmed Problem Essential hypertension (58067734) Essential (primary) hypertension (I10) Active confirmed Problem Ventricular tachycardia (51010050) Ventricular tachycardia (I47.2) 2016 Active confirmed Plan Of Treatment No Information Insurance Providers Payer Name Payer Address Payer Phone Subscriber Number Group Number Insured Name Patient Relationship to Insured Coverage Start Date Coverage End Date [facility] Medicare Advantage [address] [address] [place], [place] [id number] [phone] [id number] Oscar Barker Self - patient is the insured 0 DO NOT USE [id number] Oscar Barker Self - patient is the insured 7 DO NOT USE [place] [id number] Oscar Barker Self - patient is the insured 7 [facility] [employer] [address] [address] [place] [address] [phone] [id number] Oscar Barker Self - patient is the insured 1 [employer] [place] [address] [place] [address] [id number] MjOscar horvath Self - patient is the insured 1
--- OUTSIDE RECORDS SUMMARY | 2024-05-10 18:04 | XMS_ITS | Data Portability ---
[facility] Address [address] [place] [address] Assessment No assessment recorded. Plan of Treatment Reminders Order Date Submit Date Provider Last Modified By Organization Details Last Modified Time Details Appointments None record ed. Lab None record ed. Referral None record ed. Procedures None record ed. Surgeries None record ed. Imaging None record ed. Medication Orders None record ed. Patient TargetsNo targets recorded. Patient InstructionsNo instructions recorded. Reason for Referral None Reported. Medical Equipment None Reported. Vitals None Recorded Social History None recorded. Functional Status None recorded. Mental Status None recorded. Family History Nothing Reported. Medical History No medical history recorded. Immunizations Vaccine Type Date Status Note Provider Nam e and Address Organization Details Recorded Time COVID-19, mRNA, LNP-S, PF, 100 mcg/0.5mL dose or 50 mcg/0.25mL dose 05/08/2020 completed Alexandria Conner MA [facility], [facility] 05/08/2020 14:41:58 COVID-19, mRNA, LNP-S, PF, 100 mcg/0.5mL dose or 50 mcg/0.25mL dose 06/05/2020 completed Patricia Rivas MA [facility] 06/05/2020 12:25:28 Past Encounters Encounter ID Performer Location Encounter Start Date Encounter Closed Date Diagnosis/Indication Diagnosis SNOMED-CT Code Diagnosis ICD10 Code Diagnosis Note [id number] EVELIA Arcos 14 IM 4 [facility] [place] [id number] 1 05/08/2020 10:38:03 05/09/2020 07:47:07 Administration of SARS-CoV-2 antigen vaccine 843449542 Z23 [id number] EVELIA Arcos 14 IM 4 [facility] [place] [id number] 06/05/2020 10:09:20 06/06/2020 18:23:42 Administration of SARS-CoV-2 antigen vaccine 164448028 Z23 Health Concerns Section Related Observation LastModified by Organization Detai ls LastModified Time None Recorded Concern Status LastModified by Organization Details LastModified Time None Recorded Advance Directives Directive None Recorded Payers Encounter Date Sequence Insurance Name Policy Number Policy [place] Covered Member ID [place] Member ID Guarantor Name 05/08/2020 1 [facility] (PPO) [id number] Oscar Barker [id number] Oscar Barker 06/05/2020 1 [facility] (MEDICARE REPLACEMENT/A DVANTAGE - HMO) [id number] Oscar Barker [id number] Oscar Barker 06/05/2020 [place] Oscar Barker Jr [id number] Oscar Barker
--- OUTSIDE RECORDS SUMMARY | 2024-05-10 18:04 | XMS_ITS ---
Author Organization [facility] Address [address] [facility] [address] [place] [address] Care Team Providers Care Clam Sorter Name Role Phone Silke Wilson DO Primary Care Provider Unavailabl e zzzzMigration, zzzzProvider Unavailable Unav ailable REASON FOR VISIT EMR-Rogelio Encounters Encounter Location Date Provider Diagnosis [facility] [address] [facility] [address] [place] [address] 01/01/2023 zzzzProvider zzzzMigration Plan Of Treatment Medication Medication Name Sig Start Date Stop Date Notes Metoprolol Succinate ER 25 MG take 1 tablet (25 mg) by oral route once daily for 90 days Oral 1 for 04/02/2020 03/28/2021 Xanax 0.25 MG take 1 tablet by ora l route 2 times a day for 30 days Oral 2 for 07/30/2019 09/28/2019 TrueTrack Test use as directed 1 qd In Vitro for 100 10/30/2012 02/07/2013 guaiFENesin ER 600 MG take 1 tablet (600 mg) by oral route every 12 hours for 10 days Oral 2 for 10 11/30/2010 12/10/2010 Colcrys 0.6 MG take 0.5 tablet by oral route daily for 30 days Oral 1 for 11/09/2013 12/09/2013 Triamcinolone Acetonide 55 mcg INHALE 2 SPRAYS IN EACH NOSTRIL EVERY DAY Nasal 01/15/2013 *Pick strength-form from [facility] for eRX* Paricalcitol 1 mcg take 1 capsule (1 mc g) by oral route once daily Oral 1 Ondansetron 4 MG Take 1 (4 mg) disintegrating tablet every 6 hours PRN Oral Triamcinolone Acetonide 0.10% apply a thin layer to the affected area(s) by topical route 2 times per day for 21 days External 2 for 21 09/27/2017 HYDROcodone-Acetaminop hen 5-300 MG take 1 tablet by oral route 3 times a day as needed for 30 days Oral 3 for 11/28/2015 12/28/2015 Nateglinide 120 mg TAKE 1 TABLET 3 TIME S A DAY30 MINUTES PRIOR TO MEALS for 90 days Oral for 04/02/2020 03/28/2021 Escitalopram Oxalate 10 MG TAKE 1 TABLET BY MOUTH EVERY DAY for 90 days Oral for 04/02/2020 09/24/2021 CLONIDINE TAB 0.1MG TAKE 1 TABLET 4 TIME S DAILY 11/16/2018 *Reorder from [facility] for eRx and Interaction Alerts* cloNIDine HCl 0.1 MG take 1 tablet (0.1 mg) by oral route 4 times per day for 90 days Oral 4 for 04/02/2020 03/28/2021 OneTouch Ultra TEST DAILY DIRECT ED In Vitro 09/19/2017 06/11/2019 HYDRALAZINE 50MG TABLETS(ORANGE) TAKE 1 TABLET BY MOUTH THREE TIMES DAILY for 03/31/2020 05/10/2020 *Reorder from [facility] for eRx and Interaction Alerts* Losartan Potassium 50 MG take 1 tablet (50 mg) by oral route once daily for 30 days Oral 1 for 30 03/04/2011 04/03/2011 Levaquin 250 MG 2 today then 1 daily for 7 days Oral for 7 05/10/2012 05/17/2012 Lipitor 80 MG take 1 tablet (80 mg ) by oral route once daily for 30 days Oral 1 for 30 03/04/2011 04/03/2011 One Touch Delica Lancets use as directed for 90 days Miscellaneous for 06/24/2011 06/18/2012 Viagra 100 MG take 0.5 tablet by oral route daily for 30 days Oral 1 for 07/27/2012 08/26/2012 Aspirin Adult Low Strength 81 MG take 1 tablet (81 mg) by oral route once daily for 30 days Oral 1 for 30 04/14/2017 05/14/2017 amLODIPine Besylate 10 MG TAKE 1 TABLET DAILY for 90 days Oral for 04/02/2020 03/28/2021 Atenolol 100 MG TAKE 1 & 1/2 (ONE & ONE-HALF) TABLETS BY MOUTH ONCE DAILY for 90 days Oral for 04/02/2020 12/28/2020 Meclizine HCl 25 MG take 1 tablet (25 mg ) by oral route 3 times per day as needed Oral 3 08/03/2016 Medrol 4 MG take as directed for 6 days Oral for 6 01/16/2019 01/22/2019 Colchicine 0.6 MG TAKE 1 TABLET BY ORA L ROUTE DAILY FOR 30 DAYS Oral 12/30/2017 03/30/2018 Allopurinol 100 MG take 1 tablet by ora l route 2 times a day for 90 days Oral 2 for 07/21/2018 04/11/2020 Lovaza 1 GM take 2 capsules (2 gram) by oral route 2 times per day for 90 days Oral 2 for 04/02/2020 03/28/2021 Uloric 40 MG take 1 tablet (40 mg ) by oral route once daily for 90 days Oral 1 for 10/03/2013 01/01/2014 Gabapentin 100 MG take 1 capsule (100 mg) by oral route BID Oral 1 for 04/02/2020 03/28/2021 Calcium 667 mg TID oral *Pick stre ngth-form from [facility] for eRX* Opana ER 5 mg take 1 tablet (5 mg) by oral route every 12 hours on an empty stomach, 1 hour before or 2 hours after a meal swallowing whole. Do not break, crush, dissolve and/or chew. for 30 days Oral 2 for 01/09/2015 02/08/2015 *Reorder from [facility] for eRx and Interaction Alerts* Allopurinol 300 MG take 1 tablet (300 m g) by oral route once daily for 90 days Oral 1 for 04/02/2020 12/28/2020 Triamcinolone Acetonide 55 MCG/ACT INHALE 2 SPRAYS IN EACH NOSTRIL EVERY DAY FOR 30 DAYS Nasal 08/19/2016 09/18/2016 OneTouch Ultra Test TEST DAILY DIRECT ED miscellaneous 09/01/2016 05/24/2018 Zithromax Z-Danny 250 MG take 2 tablets (5 00 mg) by oral route once daily for 1 day then 1 tablet (250 mg) by oral route once daily for 4 days Oral 1 for 5 11/30/2010 12/05/2010 Lasix 40 MG take 1 tablet (40 mg ) by oral route once daily Oral 1 Fluticasone Propionate 50 MCG/ACT inhale 2 sprays (100 mcg) in each nostril by intranasal route once daily as needed for 14 days Nasal 1 for 14 05/03/2016 05/17/2016 Amoxicillin 500 MG take all 4 PO prior to procedure Oral for 02/09/2012 02/10/2012 hydrALAZINE HCl 50 MG TAKE 1 TABLET BY M OUTH THREE TIMES DAILY Oral for 04/02/2020 03/28/2021 ALPRAZolam 0.25 MG TAKE 1 TABLET BY PARMINDER TH TWICE DAILY for 30 days Oral for 30 06/03/2020 09/01/2020 Atorvastatin Calcium 80 MG TAKE 1 TABLET DAILY for 90 days Oral for 04/02/2020 12/28/2020 Nasacort Allergy 24HR 55 MCG/ACT spray 2 sprays in each nostril by intranasal route once daily for 1 day Nasal 1 for 11/17/2010 11/20/2010 Lisinopril 20 mg TAKE 1 TABLET DAILY Oral for 08/25/2012 11/23/2012 Progress Notes * Oscar PRETTY JrDOB: (78 yo M)Acc No.[id number]:01/01/2023 Patient: Dario LOPEZJACAnishaOscar Jr :1945 A ge:77 Y S ex:Male Address:[address] [place] [id number] * Refills Stop amLODIPine Besylate Tablet, 10 MG, Oral, 90, TAKE 1 TABLET DAILY Stop amLODIPine Besylate Tablet, 10 MG, Oral, 90, TAKE 1 TABLET DAILY for 90 days, 90 Stop Atenolol Tablet, 100 MG, Oral, 135, TAKE ONE AND ONE-HALF TABLETS BY MOUTH EVERY DAY for 90 days, 90 Stop cloNIDine HCl Tablet, 0.1 MG, Oral, 120, TAKE ONE TABLET BY MOUTH 4 TIMES DAILY, 30 Stop cloNIDine HCl Tablet, 0.1 MG, Oral, 360, TAKE 1 TABLET 4 TIMES DAILY Stop cloNIDine HCl Tablet, 0.1 MG, Oral, 360, take 1 tablet (0.1 mg) by oral route 4 times per day for 90 days, 4, 90 Stop Colchicine Tablet, 0.6 MG, Oral, 90, take 1 tablet by oral route daily for 90 days, Stop Escitalopram Oxalate Tablet, 10 MG, Oral, 30, TAKE 1 TABLET BY MOUTH EVERY DAY FOR 30 DAYS FOR 30 DAYS, 30 Stop HYDROcodone-Acetaminophen Tablet, 5-300 MG, Oral, 90, take 1 tablet by oral route 3 times a day as needed for 30 days, 3, 30 Stop Lovaza Capsule, 1 GM, Oral, 360, take 2 capsules (2 gram) by oral route 2 times per day for 90 days, 2, 90 Stop Xanax Tablet, 0.25 MG, Oral, 60, take 1 tablet by oral route 2 times a day for 30 days, 2, 30 Stop Xanax Tablet, 0.25 MG, Oral, 60, take 1 tablet by oral route 2 times a day for 30 days, 2, 30 Stop TrueTrack Test Strip, In Vitro, 4, use as directed 1 qd, 100 Stop IronGateuch Ultra Strip, In Vitro, 100, TEST DAILY DIRECTED Stop Allopurinol Tablet, 100 MG, Oral, 30, take 1 tablet (100 mg) by oral route once daily for 30 days, 1, 30 Stop amLODIPine Besylate Tablet, 10 MG, Oral, 90, TAKE 1 TABLET DAILY for 90 days, 90 Stop cloNIDine HCl Tablet, 0.1 MG, Oral, 360, take 1 tablet (0.1 mg) by oral route 4 times per day for 90 days, , Stop Colchicine Tablet, 0.6 MG, Oral, 30, TAKE 1 TABLET BY ORAL ROUTE DAILY FOR 30 DAYS Stop Escitalopram Oxalate Tablet, 10 MG, Oral, 30, TAKE 1 TABLET (10 MG) BY ORAL ROUTE ONCE DAILY FOR 30 DAYS Stop hydrALAZINE HCl Tablet, 50 MG, Oral, 90, TAKE ONE TABLET BY MOUTH THREE TIMES DAILY Stop hydrALAZINE HCl Tablet, 50 MG, Oral, 270, TAKE 1 TABLET BY MOUTH THREE TIMES DAILY Stop hydrALAZINE HCl Tablet, 50 MG, Oral, 90, TAKE 1 TABLET BY MOUTH THREE TIMES DAILY Stop Lisinopril Tablet, 20 MG, Oral, 90, take 1 tablet (20 mg) by oral route once daily for 90 days, , 90 Stop Medrol Tablet Therapy Pack, 4 MG, Oral, 1, take as directed for 6 days, 6 Stop Xanax Tablet, 0.25 MG, Oral, 60, take 1 tablet by oral route 2 times a day for 30 days, 2, 30 Stop Xanax Tablet, 0.25 MG, Oral, 60, take 1 tablet by oral route 2 times a day for 30 days, 2, 30 Stop Xanax Tablet, 0.25 MG, Oral, 60, take 1 tablet by oral route 2 times a day for 30 days, 2, 30 Stop Xanax Tablet, 0.25 MG, Oral, 60, take 1 tablet by oral route 2 times a day for 30 days, 2, 30 Stop Aspirin Adult Low Strength Tablet Delayed Release, 81 MG, Oral, 30, take 1 tablet (81 mg) by oral route once daily for 30 days, 1, 30 Stop Uloric Tablet, 40 mg, Oral, 30, TAKE ONE TABLET BY MOUTH EVERY DAY, 30 Stop One Touch Delica Lancets Mis, Miscellaneous, 300, use as directed for 90 days, 90 Stop HYDRALAZINE 50MG TABLETS(ORANGE), 30, TAKE 1 TABLET BY MOUTH THREE TIMES DAILY, 10 Stop Allopurinol Tablet, 100 MG, Oral, 180, take 1 tablet by oral route 2 times a day for 90 days, 2, 90 Stop Atenolol Tablet, 100 MG, Oral, 90, TAKE ONE AND ONE-HALF TABLETS BY MOUTH EVERY DAY Stop Atorvastatin Calcium Tablet, 80 MG, Oral, 90, TAKE 1 TABLET DAILY Stop Colchicine Tablet, 0.6 MG, Oral, 30, take 1 tablet by oral route daily for 30 days, 1, 30 Stop Escitalopram Oxalate Tablet, 10 MG, Oral, 30, TAKE 1 TABLET BY MOUTH EVERY DAY FOR 30 DAYS for 30 days, 30 Stop Escitalopram Oxalate Tablet, 10 MG, Oral, 30, TAKE 1 TABLET BY MOUTH EVERY DAY FOR 30 DAYS FOR 30 DAYS Stop hydrALAZINE HCl Tablet, 50 MG, Oral, 90, TAKE ONE TABLET BY MOUTH THREE TIMES DAILY Stop hydrALAZINE HCl Tablet, 50 MG, Oral, 90, TAKE ONE TABLET BY MOUTH THREE TIMES DAILY for 90 days, 90 Stop Meclizine HCl Tablet, 25 MG, Oral, 30, take 1 tablet (25 mg) by oral route 3 times per day as needed, 3 Stop Xanax Tablet, 0.25 MG, Oral, 60, take 1 tablet by oral route 2 times a day for 30 days, 2, 30 Stop Xanax Tablet, 0.25 MG, Oral, 60, take 1 tablet by oral route 2 times a day for 30 days, 2, 30 Stop Colcrys Tablet, 0.6 MG, Oral, 15, TAKE 1/2 TABLET BY MOUTH DAILY Stop OneTouch Ultra Strip, In Vitro, 100, TEST DAILY DIRECTED Stop ALPRAZolam Tablet, 0.25 MG, Oral, 60, TAKE 1 TABLET BY MOUTH TWICE DAILY Stop ALPRAZolam Tablet, 0.25 MG, Oral, 60, TAKE 1 TABLET BY MOUTH TWICE DAILY for 30 days, 30 Stop amLODIPine Besylate Tablet, 10 MG, Oral, 90, TAKE 1 TABLET DAILY Stop Atenolol Tablet, 100 MG, Oral, 135, TAKE ONE & ONE-HALF TABLETS BY MOUTH ONCE DAILY Stop Losartan Potassium Tablet, 50 MG, Oral, 30, take 1 tablet (50 mg) by oral route once daily for 30 days, 1, 30 Stop Lovaza Capsule, 1 GM, Oral, 360, take 2 capsules (2 gram) by oral route 2 times per day for 90 days, , 90 Stop Xanax Tablet, 0.25 MG, Oral, 60, take 1 tablet by oral route 2 times a day for 30 days, 2, 30 Stop Xanax Tablet, 0.25 MG, Oral, 60, take 1 tablet by oral route 2 times a day for 30 days, 2, 30 Stop Xanax Tablet, 0.25 MG, Oral, 60, take 1 tablet by oral route 2 times a day for 30 days, 2, 30 Stop Metoprolol Succinate ER Tablet Extended Release 24 Hour, 25 MG, Oral, 30, take 1 tablet (25 mg) by oral route once daily for 30 days, , 30 Stop Allopurinol Tablet, 300 MG, Oral, 90, take 1 tablet (300 mg) by oral route once daily for 90 days, , Stop Allopurinol Tablet, 300 MG, Oral, 30, take 1 tablet (300 mg) by oral route once daily for 30 days, 1, 30 Stop cloNIDine HCl Tablet, 0.1 MG, Oral, 120, TAKE ONE TABLET BY MOUTH 4 TIMES DAILY, 30 Stop Lovaza Capsule, 1 GM, Oral, 360, take 2 capsules (2 gram) by oral route 2 times per day for 90 days, , Stop Medrol Tablet Therapy Pack, 4 MG, Oral, 1, take as directed for 6 days, 6 Stop Nateglinide Tablet, 120 mg, Oral, 90, TAKE 1 TABLET 3 TIMES A DAY1 TO 30 MINUTES PRIOR TO MEALS, 30 Stop Nateglinide Tablet, 120 mg, Oral, 270, TAKE 1 TABLET 3 TIMES A DAY30 MINUTES PRIOR TO MEALS Stop Nateglinide Tablet, 120 mg, Oral, 270, TAKE 1 TABLET 3 TIMES A DAY 30 MINUTES PRIOR TO MEALS. Stop Viagra Tablet, 100 MG, Oral, 6, take 0.5 tablet by oral route daily for 30 days, 1, 30 Stop Xanax Tablet, 0.25 MG, Oral, 60, take 1 tablet by oral route 2 times a day for 30 days, 2, 30 Stop Xanax Tablet, 0.25 MG, Oral, 60, take 1 tablet by oral route 2 times a day for 30 days, 2, 30 Stop Xanax Tablet, 0.25 MG, Oral, 60, take 1 tablet by oral route 2 times a day for 30 days, 2, 30 Stop Colcrys Tablet, 0.6 MG, Oral, 15, take 0.5 tablet by oral route daily for 30 days, 1, 30 Stop One Touch Delica Lancets [facility] [place] Miscellaneous, 300, use as directed for 90 days, 90 Stop CLONIDINE TAB 0.1MG, 360, TAKE 1 TABLET 4 TIMES DAILY Stop ALPRAZolam Tablet, 0.25 MG, Oral, 60, TAKE 1 TABLET BY MOUTH TWICE DAILY for 30 days, 30 Stop Atorvastatin Calcium Tablet, 80 MG, Oral, 90, TAKE 1 TABLET DAILY for 90 days, 90 Stop Escitalopram Oxalate Tablet, 10 MG, Oral, 30, TAKE 1 TABLET (10 MG) BY ORAL ROUTE ONCE DAILY FOR 30 DAYS Stop Lisinopril tablet, 20 mg, Oral, 90, TAKE 1 TABLET DAILY, 90 Stop Lovaza Capsule, 1 GM, Oral, 120, take 2 capsules (2 gram) by oral route 2 times per day for 30 days, 2, 30 Stop Nateglinide Tablet, 120 mg, Oral, 270, TAKE 1 TABLET 3 TIMES A DAY30 MINUTES PRIOR TO MEALS Stop Xanax Tablet, 0.25 MG, Oral, 60, take 1 tablet by oral route 2 times a day for 30 days, 2, 30 Stop Xanax Tablet, 0.25 MG, Oral, 60, take 1 tablet by oral route 2 times a day for 30 days, 2, 30 Stop evocatal Ultra Test strip, miscellaneous, 100, TEST DAILY DIRECTED Stop Allopurinol Tablet, 100 MG, Oral, 30, TAKE 1 TABLET BY MOUTH EVERY DAY for 30 days, 30 Stop ALPRAZolam Tablet, 0.25 MG, Oral, 60, TAKE 1 TABLET BY MOUTH TWICE DAILY for 30 days, 30 Stop amLODIPine Besylate Tablet, 10 MG, Oral, 90, TAKE 1 TABLET DAILY Stop Atenolol Tablet, 100 mg, Oral, 90, TAKE ONE AND ONE-HALF TABLETS BY MOUTH EVERY DAY, 60 Stop Calcium tablet,chewable, 667 mg, oral, 0, TID Stop cloNIDine HCl Tablet, 0.1 MG, Oral, 360, TAKE ONE TABLET BY MOUTH 4 TIMES DAILY for 90 days, 90 Stop cloNIDine HCl Tablet, 0.1 MG, Oral, 180, take 1 tablet by oral route 2 times a day for 90 days, 2, 90 Stop Gabapentin Capsule, 100 MG, Oral, 180, take 1 capsule (100 mg) by oral route BID, Stop Opana ER Tablet ER 12 Hour Abuse-Deterrent, 5 mg, Oral, 60, take 1 tablet (5 mg) by oral route every 12 hours on an empty stomach, 1 hour before or 2 hours after a meal swallowing whole. Do not break, crush, dissolve and/or chew. for 30 days, 2, 30 Stop Xanax Tablet, 0.25 MG, Oral, 60, take 1 tablet by oral route 2 times a day for 30 days, 2, 30 Stop Xanax Tablet, 0.25 MG, Oral, 60, take 1 tablet by oral route 2 times a day for 30 days, 2, 30 Stop Xanax Tablet, 0.25 MG, Oral, 60, take 1 tablet by oral route 2 times a day for 30 days, 2, 30 Stop Xanax Tablet, 0.25 MG, Oral, 60, take 1 tablet by oral route 2 times a day for 30 days, 2, 30 Stop Xanax Tablet, 0.25 MG, Oral, 60, take 1 tablet by oral route 2 times a day for 30 days, 2, 30 Stop Xanax Tablet, 0.25 MG, Oral, 60, take 1 tablet by oral route 2 times a day for 30 days, 2, 30 Stop Allopurinol Tablet, 100 MG, Oral, 30, TAKE 1 TABLET BY MOUTH EVERY DAY FOR 30 DAYS Stop Atorvastatin Calcium Tablet, 80 MG, Oral, 90, TAKE 1 TABLET DAILY for 90 days, 90 Stop cloNIDine HCl Tablet, 0.1 MG, Oral, 120, TAKE ONE TABLET BY MOUTH 4 TIMES DAILY, 30 Stop cloNIDine HCl Tablet, 0.1 MG, Oral, 120, TAKE ONE TABLET BY MOUTH 4 TIMES DAILY, 30 Stop Fluticasone Propionate Suspension, 50 MCG/ACT, Nasal, 1, INHALE 2 SPRAYS (100 MCG) IN EACH NOSTRIL BY INTRANASAL ROUTE ONCE DAILY NEEDED FOR 14 DAYS Stop hydrALAZINE HCl Tablet, 50 MG, Oral, 90, TAKE ONE TABLET BY MOUTH THREE TIMES DAILY Stop hydrALAZINE HCl Tablet, 50 MG, Oral, 90, TAKE ONE TABLET BY MOUTH THREE TIMES DAILY Stop hydrALAZINE HCl Tablet, 50 MG, Oral, 30, TAKE 1 TABLET BY MOUTH THREE TIMES DAILY, 30 Stop Levaquin Tablet, 250 MG, Oral, 8, 2 today then 1 daily for 7 days, 7 Stop Lipitor Tablet, 80 MG, Oral, 30, take 1 tablet (80 mg) by oral route once daily for 30 days, 1, 30 Stop Medrol Tablet Therapy Pack, 4 MG, Oral, 1, take as directed Stop Nateglinide Tablet, 120 mg, Oral, 270, take 1 tablet (120 mg) by oral route 3 times per day 1 to 30 minutes prior to meals for 90 days, 3, 90 Stop Nateglinide Tablet, 120 mg, Oral, 270, TAKE 1 TABLET 3 TIMES A DAY30 MINUTES PRIOR TO MEALS for 90 days, 90 Stop Triamcinolone Acetonide Aerosol, Deal, 55 mcg, Nasal, 17, INHALE 2 SPRAYS IN EACH NOSTRIL EVERY DAY Stop Xanax Tablet, 0.25 MG, Oral, 60, take 1 tablet by oral route 2 times a day for 30 days, 2, 30 Stop Xanax Tablet, 0.25 MG, Oral, 60, take 1 tablet by oral route 2 times a day for 30 days, 2, 30 Stop Xanax Tablet, 0.25 MG, Oral, 60, take 1 tablet by oral route 2 times a day for 30 days, 2, 30 Stop Xanax Tablet, 0.25 MG, Oral, 60, take 1 tablet by oral route 2 times a day for 30 days, 2, 30 Stop Xanax Tablet, 0.25 MG, Oral, 60, take 1 tablet by oral route 2 times a day for 30 days, 2, 30 Stop Metoprolol Succinate ER Tablet Extended Release 24 Hour, 25 MG, Oral, 90, take 1 tablet (25 mg) by oral route once daily for 90 days, 1, 90 Stop ALPRAZolam Tablet, 0.25 MG, Oral, 60, TAKE 1 TABLET BY MOUTH TWICE DAILY for 30 days, 30 Stop hydrALAZINE HCl Tablet, 50 MG, Oral, 90, TAKE 1 TABLET BY MOUTH THREE TIMES DAILY, 90 Stop Medrol Tablet Therapy Pack, 4 MG, Oral, 1, take as directed Stop Xanax Tablet, 0.25 MG, Oral, 60, take 1 tablet by oral route 2 times a day for 30 days, 2, 30 Stop Xanax Tablet, 0.25 MG, Oral, 60, take 1 tablet by oral route 2 times a day for 30 days, 2, 30 Stop Zithromax Z-Danny Tablet, 250 MG, Oral, 6, take 2 tablets (500 mg) by oral route once daily for 1 day then 1 tablet (250 mg) by oral route once daily for 4 days, 1, 5 Stop Atorvastatin Calcium Tablet, 80 MG, Oral, 90, TAKE 1 TABLET DAILY Stop Colchicine Tablet, 0.6 MG, Oral, 3, take 2 tablets (1.2 mg) by oral route initially, then take 1 tab (0.6 mg ) in 1 hr, 3 Stop Escitalopram Oxalate Tablet, 10 MG, Oral, 30, TAKE 1 TABLET BY MOUTH EVERY DAY FOR 30 DAYS Stop hydrALAZINE HCl Tablet, 50 MG, Oral, 90, TAKE ONE TABLET BY MOUTH THREE TIMES DAILY Stop Medrol Tablet Therapy Pack, 4 MG, Oral, 1, take as directed Stop Triamcinolone Acetonide Aerosol, 55 MCG/ACT, Nasal, 17, INHALE 2 SPRAYS IN EACH NOSTRIL EVERY DAY Stop Xanax Tablet, 0.25 MG, Oral, 60, take 1 tablet by oral route 2 times a day for 30 days, 2, 30 Stop Xanax Tablet, 0.25 MG, Oral, 60, take 1 tablet by oral route 2 times a day for 30 days, 2, 30 Stop OneTouch Ultra Strip, In Vitro, 200, use 1-3 strips qd, 90 Stop Atenolol Tablet, 100 MG, Oral, 135, TAKE ONE & ONE-HALF TABLETS BY MOUTH ONCE DAILY Stop Atenolol Tablet, 100 MG, Oral, 135, TAKE 1 & 1/2 (ONE & ONE-HALF) TABLETS BY MOUTH ONCE DAILY Stop cloNIDine HCl Tablet, 0.1 MG, Oral, 360, TAKE 1 TABLET 4 TIMES DAILY Stop hydrALAZINE HCl Tablet, 50 MG, Oral, 90, TAKE ONE TABLET BY MOUTH THREE TIMES DAILY Stop Lovaza Capsule, 1 GM, Oral, 360, take 2 capsules (2 gram) by oral route 2 times per day for 90 days, 2, 90 Stop Xanax Tablet, 0.25 MG, Oral, 60, take 1 tablet by oral route 2 times a day for 30 days, 2, 30 Stop Xanax Tablet, 0.25 MG, Oral, 60, take 1 tablet by oral route 2 times a day for 30 days, 2, 30 Stop Xanax Tablet, 0.25 MG, Oral, 60, take 1 tablet by oral route 2 times a day for 30 days, 2, 30 Stop Xanax Tablet, 0.25 MG, Oral, 60, take 1 tablet by oral route 2 times a day for 30 days, 2, 30 Stop Xanax Tablet, 0.25 MG, Oral, 60, take 1 tablet by oral route 2 times a day for 30 days, 2, 30 Stop Xanax Tablet, 0.25 MG, Oral, 60, take 1 tablet by oral route 2 times a day for 30 days, 2, 30 Stop Colcrys Tablet, 0.6 MG, Oral, 15, TAKE 1/2 TABLET BY MOUTH DAILY Stop Allopurinol Tablet, 100 MG, Oral, 30, TAKE 1 TABLET BY MOUTH EVERY DAY Stop Allopurinol Tablet, 300 MG, Oral, 90, take 1 tablet (300 mg) by oral route once daily for 90 days, 90 Stop Atenolol Tablet, 100 MG, Oral, 135, TAKE ONE & ONE-HALF TABLETS BY MOUTH ONCE DAILY Stop Atorvastatin Calcium Tablet, 80 MG, Oral, 90, TAKE 1 TABLET DAILY Stop cloNIDine HCl Tablet, 0.1 MG, Oral, 120, TAKE ONE TABLET BY MOUTH 4 TIMES DAILY, 30 Stop cloNIDine HCl Tablet, 0.1 MG, Oral, 360, TAKE ONE TABLET BY MOUTH 4 TIMES DAILY for 90 days, 90 Stop cloNIDine HCl Tablet, 0.1 MG, Oral, 360, TAKE 1 TABLET 4 TIMES DAILY Stop cloNIDine HCl Tablet, 0.1 MG, Oral, 360, TAKE 1 TABLET 4 TIMES DAILY Stop hydrALAZINE HCl Tablet, 50 MG, Oral, 90, TAKE ONE TABLET BY MOUTH THREE TIMES DAILY Stop Medrol Tablet Therapy Pack, 4 MG, Oral, 1, take as directed for 6 days, 6 Stop Ondansetron Tablet Disintegrating, 4 MG, Oral, 0, Take 1 (4 mg) disintegrating tablet every 6 hours PRN Stop Triamcinolone Acetonide Ointment, 0.10%, External, 1, apply a thin layer to the affected area(s) by topical route 2 times per day for 21 days, 2, 21 Stop Xanax Tablet, 0.25 MG, Oral, 60, take 1 tablet by oral route 2 times a day for 30 days, 2, 30 Stop Xanax Tablet, 0.25 MG, Oral, 60, take 1 tablet by oral route 2 times a day for 30 days, 2, 30 Stop Xanax Tablet, 0.25 MG, Oral, 60, take 1 tablet by oral route 2 times a day for 30 days, 2, 30 Stop Xanax Tablet, 0.25 MG, Oral, 60, take 1 tablet by oral route 2 times a day for 30 days, 2, 30 Stop Xanax Tablet, 0.25 MG, Oral, 60, take 1 tablet by oral route 2 times a day for 30 days, 2, 30 Stop Xanax Tablet, 0.25 MG, Oral, 60, take 1 tablet by oral route 2 times a day for 30 days, 2, 30 Stop Uloric Tablet, 40 mg, Oral, 30, TAKE ONE TABLET BY MOUTH EVERY DAY, 30 Stop Uloric Tablet, 40 MG, Oral, 90, take 1 tablet (40 mg) by oral route once daily for 90 days, 1, 90 Stop Nasacort Allergy 24HR Aerosol, 55 MCG/ACT, Nasal, 1, spray 2 sprays in each nostril by intranasal route once daily for 1 day, 1, 1 Stop HYDRALAZINE 50MG TABLETS(ORANGE), 90, TAKE 1 TABLET BY MOUTH THREE TIMES DAILY, 30 Stop ALPRAZolam Tablet, 0.25 MG, Oral, 60, TAKE 1 TABLET BY MOUTH TWICE DAILY for 30 days, 30 Stop Escitalopram Oxalate Tablet, 10 MG, Oral, 30, TAKE 1 TABLET BY MOUTH EVERY DAY FOR 30 DAYS Stop Escitalopram Oxalate Tablet, 10 MG, Oral, 30, TAKE 1 TABLET BY MOUTH EVERY DAY Stop hydrALAZINE HCl Tablet, 50 MG, Oral, 90, TAKE ONE TABLET BY MOUTH THREE TIMES DAILY Stop Nateglinide Tablet, 120 mg, Oral, 270, TAKE 1 TABLET 3 TIMES A DAY30 MINUTES PRIOR TO MEALS Stop Xanax Tablet, 0.25 MG, Oral, 60, take 1 tablet by oral route 2 times a day for 30 days, 2, 30 Stop Xanax Tablet, 0.25 MG, Oral, 60, take 1 tablet by oral route 2 times a day for 30 days, 2, 30 Stop Xanax Tablet, 0.25 MG, Oral, 60, take 1 tablet by oral route 2 times a day for 30 days, 2, 30 Stop Xanax Tablet, 0.25 MG, Oral, 60, take 1 tablet by oral route 2 times a day for 30 days, 2, 30 Stop OneTouch Ultra Test strip, miscellaneous, 100, TEST DAILY DIRECTED Stop OneTouch Ultra Strip, In Vitro, 100, test once daily, 90 Stop Allopurinol Tablet, 100 MG, Oral, 30, take 1 tablet (100 mg) by oral route once daily for 30 days, 1, 30 Stop Allopurinol Tablet, 100 MG, Oral, 30, TAKE 1 TABLET BY MOUTH EVERY DAY Stop ALPRAZolam Tablet, 0.25 MG, Oral, 60, TAKE 1 TABLET BY MOUTH TWICE DAILY for 30 days, 30 Stop Amoxicillin Capsule, 500 MG, Oral, 4, take all 4 PO prior to procedure, 1 Stop Fluticasone Propionate Suspension, 50 MCG/ACT, Nasal, 1, inhale 2 sprays (100 mcg) in each nostril by intranasal route once daily as needed for 14 days, 1, 14 Stop Lasix Tablet, 40 MG, Oral, 0, take 1 tablet (40 mg) by oral route once daily, 1 Stop Medrol Tablet Therapy Pack, 4 MG, Oral, 1, take as directed Stop Nateglinide Tablet, 120 mg, Oral, 270, TAKE 1 TABLET 3 TIMES A DAY1 TO 30 MINUTES PRIOR TO MEALS Stop Triamcinolone Acetonide Aerosol, 55 MCG/ACT, Nasal, 17, INHALE 2 SPRAYS IN EACH NOSTRIL EVERY DAY FOR 30 DAYS Stop Triamcinolone Acetonide Aerosol, 55 MCG/ACT, Nasal, 17, INHALE 2 SPRAYS IN EACH NOSTRIL EVERY DAY FOR 30 DAYS for 30 days, 30 Stop Xanax Tablet, 0.25 MG, Oral, 60, take 1 tablet by oral route 2 times a day for 30 days, 2, 30 Stop Xanax Tablet, 0.25 MG, Oral, 60, take 1 tablet by oral route 2 times a day for 30 days, 2, 30 Stop Xanax Tablet, 0.25 MG, Oral, 60, take 1 tablet by oral route 2 times a day for 30 days, 2, 30 Stop Xanax Tablet, 0.25 MG, Oral, 60, take 1 tablet by oral route 2 times a day for 30 days, 2, 30 Stop Xanax Tablet, 0.25 MG, Oral, 60, take 1 tablet by oral route 2 times a day for 30 days, 2, 30 Stop Xanax Tablet, 0.25 MG, Oral, 60, take 1 tablet by oral route 2 times a day for 30 days, 2, 30 Stop Xanax Tablet, 0.25 MG, Oral, 60, take 1 tablet by oral route 2 times a day for 30 days, 2, 30 Stop Xanax Tablet, 0.25 MG, Oral, 60, take 1 tablet by oral route 2 times a day for 30 days, 2, 30 Stop Uloric Tablet, 40 MG, Oral, 90, take 1 tablet (40 mg) by oral route once daily for 90 days, Stop Metoprolol Succinate ER Tablet Extended Release 24 Hour, 25 MG, Oral, 90, TAKE 1 TABLET(25 MG) BY MOUTH EVERY DAY, 90 Stop IronGateuch Ultra Strip, In Vitro, 100, TEST ONCE DAILY Stop Allopurinol Tablet, 300 MG, Oral, 90, take 1 tablet (300 mg) by oral route once daily for 90 days, Stop Allopurinol Tablet, 300 MG, Oral, 90, take 1 tablet (300 mg) by oral route once daily for 90 days, Stop amLODIPine Besylate Tablet, 10 MG, Oral, 90, TAKE 1 TABLET DAILY Stop amLODIPine Besylate Tablet, 10 MG, Oral, 90, TAKE 1 TABLET DAILY Stop amLODIPine Besylate Tablet, 10 MG, Oral, 90, TAKE 1 TABLET DAILY Stop Atorvastatin Calcium Tablet, 80 MG, Oral, 90, TAKE 1 TABLET DAILY Stop Escitalopram Oxalate Tablet, 10 MG, Oral, 30, take 1 tablet (10 mg) by oral route once daily for 30 days, 1, 30 Stop Medrol Tablet Therapy Pack, 4 MG, Oral, 1, take as directed for 6 days, 6 Stop Nateglinide Tablet, 120 mg, Oral, 90, TAKE 1 TABLET 3 TIMES A DAY1 TO 30 MINUTES PRIOR TO MEALS Stop Nateglinide Tablet, 120 mg, Oral, 270, TAKE 1 TABLET 3 TIMES A DAY30 MINUTES PRIOR TO MEALS Stop Triamcinolone Acetonide Aerosol, 55 MCG/ACT, Nasal, 17, INHALE 2 SPRAYS IN EACH NOSTRIL EVERY DAY for 30 days, 30 Stop Xanax Tablet, 0.25 MG, Oral, 60, take 1 tablet by oral route 2 times a day for 30 days, 2, 30 Stop Xanax Tablet, 0.25 MG, Oral, 60, take 1 tablet by oral route 2 times a day for 30 days, 2, 30 Stop Xanax Tablet, 0.25 MG, Oral, 60, take 1 tablet by oral route 2 times a day for 30 days, 2, 30 Stop Xanax Tablet, 0.25 MG, Oral, 60, take 1 tablet by oral route 2 times a day for 30 days, 2, 30 Stop Xanax Tablet, 0.25 MG, Oral, 60, take 1 tablet by oral route 2 times a day for 30 days, 2, 30 Stop Colcrys Tablet, 0.6 MG, Oral, 15, take 0.5 tablet by oral route daily for 30 days, 1, 30 Stop amLODIPine Besylate Tablet, 10 MG, Oral, 90, TAKE 1 TABLET DAILY Stop Atenolol Tablet, 100 MG, Oral, 180, TAKE 1 & 1/2 (ONE & ONE-HALF) TABLETS BY MOUTH ONCE DAILY for 90 days, 90 Stop Atorvastatin Calcium Tablet, 80 MG, Oral, 90, TAKE 1 TABLET DAILY Stop Atorvastatin Calcium Tablet, 80 MG, Oral, 90, TAKE 1 TABLET DAILY Stop Escitalopram Oxalate Tablet, 10 MG, Oral, 90, TAKE 1 TABLET BY MOUTH EVERY DAY for 90 days, 90 Stop Paricalcitol Capsule, 1 mcg, Oral, 0, take 1 capsule (1 mcg) by oral route once daily, 1 Stop Xanax Tablet, 0.25 MG, Oral, 60, take 1 tablet by oral route 2 times a day for 30 days, 2, 30 Stop Xanax Tablet, 0.25 MG, Oral, 60, take 1 tablet by oral route 2 times a day for 30 days, 2, 30 Stop Xanax Tablet, 0.25 MG, Oral, 60, take 1 tablet by oral route 2 times a day for 30 days, 2, 30 Stop Xanax Tablet, 0.25 MG, Oral, 60, take 1 tablet by oral route 2 times a day for 30 days, 2, 30 Stop Xanax Tablet, 0.25 MG, Oral, 60, take 1 tablet by oral route 2 times a day for 30 days, 2, 30 Stop Colcrys Tablet, 0.6 MG, Oral, 15, take 0.5 tablet by oral route daily for 30 days, 1, 30 Stop guaiFENesin ER Tablet Extended Release 12 Hour, 600 MG, Oral, 20, take 1 tablet (600 mg) by oral route every 12 hours for 10 days, 2, 10 Subjective: * Chief Complaints: * E MR-Rogelio * Medical History: * Surgical History: * Hospitalization/Major Diagno stic Procedure: * Medications: Objective: * Vitals: * Physical Examination: Assessment: Plan: * Treatment: * Procedure Codes: * * Date:
--- OUTSIDE RECORDS SUMMARY | 2024-05-10 18:04 | XMS_ITS | Clinical Summary ---
Author Organization [facility] Address [address] [place] [id number] Phone Care Team Providers Care Quality Control Lab Tech Name Role Phone Silke Wilson Primary Care Provider Allergies No known active allergies Medications Medication Sig Dispensed Refills Start Date End Date Status allopurinol (ZYLOPRIM) 100 MG tablet Take 100 mg by mouth daily Active ALPRAZolam (XANAX) 0.25 MG tablet TK 1 T PO BID 01/03/2020 Active amLODIPine (NORVASC) 10 MG tablet TK 1 T PO QD 12/14/2019 Active atorvastatin (LIPITOR) 80 MG tablet TK 1 T PO QD 12/14/2019 Active cloNIDine (CATAPRES) 0.1 MG tablet 11/12/2019 Active ergocalciferol (VITAMIN D2) 1.25 MG (26146 UT) capsule TK ONE C PO Q 30 DAYS 12/02/2019 Active furosemide (LASIX) 40 MG tablet TK 2 TS PO IN THE MORNING AND 2 TS IN THE EVENING 01/11/2020 Active OneTouch Ultra test strip TEST DAILY UTD 11/28/2019 Active hydrALAZINE (APRESOLINE) 50 MG tablet TK 1 T PO TID 12/26/2019 Active metoprolol succinate XL (TOPROL-XL) 25 MG 24 hr tablet Take 25 mg by mouth 1 (one) time each day 01/01/2020 Active nateglinide (STARLIX) 120 MG tablet Active B complex-vitamin C-folic acid (NEPHROCAPS) 1 MG capsule TAKE 1 CAPSULE DAILY 12/28/2019 Active Meclizine HCl 25 MG chewable tablet As needed Active allopurinol (ZYLOPRIM) 300 MG tablet Take 300 mg by mouth 1 (one) time each day 02/18/2020 Active atenolol (TENORMIN) 100 MG tablet Take 100 mg by mouth 07/07/2019 Active triamcinolone (KENALOG) 0.1 % ointment APPLY A THIN LAYER TO THE AFFECTED AREA TWICE DAILY 02/20/2020 Active paricalcitol (ZEMPLAR) 1 MCG capsule Take 1 capsule (1 mcg total) by mouth 1 (one) time each day 30 capsule 11 06/18/2020 Active gabapentin (NEURONTIN) 100 MG capsule 04/02/2020 Active escitalopram (LEXAPRO) 10 MG tablet Take 10 mg by mouth 1 (one) time each day 04/02/2020 Active irbesartan (AVAPRO) 300 MG tablet Take 1 tablet (300 mg total) by mouth 1 (one) time each day 90 tablet 3 11/26/2021 Active Active Problems Problem Noted Date Diagnosed Date Type 2 diabetes mellitus without complication Anemia of chronic renal failure 02/05/2020 Anemia of chronic disease 10/19/2017 Essential hypertension 10/19/2017 Secondary hyperparathyroidism 10/19/2017 Stage 5 chronic kidney disease 10/19/2017 Overview (01/17/2020): Added automatically from request for surgery [id number] Immunizations Name Administration Dates Next Due Hep B, Adolescent or Pediatric 04/17/2010,2009,02/04/2010 Hepatitis B 04/17/2010,03/10/2010,02/04/2010 Influenza, Quadrivalent 12/27/2019 Pneumococcal Conjugate 13-Valent 02/13/2014 Pneumococcal Polysaccharide 02/28/2012 Social History Tobacco Use Types Packs/Day Years Used Date Smoking Tobacco: Former Smokeless Tobacco: Never Alcohol Use Standard Drinks/Week Comments Not Currently 0 (1 standard drink = 0.6 oz pur e alcohol) Sex and Gender Information Value Date Recorded Sex Assigned at Not on file Gender Identity Not on file Sexual Orientation Not on file Last Filed Vital Signs Vital Sign Reading Time Taken Comments Blood Pressure 128/70 07/02/2020 2:03 PM CDT Pulse 60 07/02/2020 2:03 PM CDT Temperature 35.9 C (96.6 F) 07/02/2020 2:03 PM CDT Respiratory Rate - - Oxygen Saturation - - Inhaled Oxygen Concentration - - Weight 106 kg (233 lb) 07/02/2020 2:03 PM CDT Height 182.9 cm (6') 07/02/2020 2:03 PM CDT Body Mass Index 31.6 07/02/2020 2:03 PM CDT Plan of Treatment Health Maintenance Due Date Last Done Comments Influenza Vaccine (#1) 2023 Pneumococcal PPSV23/PCV13 65 + Years / Low and Medium Risk Completed 02/13/2014, 02/28/2012 Care Teams Quality Control Lab Tech Relationship Specialty Start Date End Date Silke Wilson [address] [place] [facility] [place] [id number] PCP - General Family Medicine 07/02/20
[2024-05-10 18:09] VITALS: BP 132/49; PULSE 86; RESP 18; TEMP 37; O2SAT 99
--- NOTE | 2024-05-10 18:45 | ED.AMS ---
HPI - Altered Mental Status General Chief Complaint: Altered Mental Status <Alexandria Mcrae PA-C - Last Filed: 05/11/24 12:29> Stated Complaint: lethargic, AMS <Alexandria Mcrae PA-C - Last Filed: 05/11/24 12:29> Time Seen by Provider: 05/10/24 18:45 <Alexandria Mcrae PA-C - Last Filed: 05/11/24 12:29> Focused HPI: This is a 78 year old male that presents to the ER for confusion. Reports he went to dialysis today. Does not remember going to dialysis. Reports fatigue, he does not know day it is. Reports decreased appetite. Reports some diarrhea. GENERAL: Elderly, well-nourished, and in no acute distress. HEAD: Normocephalic, atraumatic. CHEST: Clear to auscultation. ?No respiratory distress. HEART: Regular rate and rhythm.? NEURO: ?Alert and oriented x3. Patient screened in triage and initial orders placed.? ?Additional care and disposition to be based upon?diagnostic testing and treatment. <Alexandria Mcrae PA-C - Last Filed: 05/11/24 12:29> History of Present Illness HPI narrative: 78-year-old male with a past medical history including end-stage renal disease on hemodialysis Tuesday, , Tuesday, hypertension. Patient presents to the emergency department with family members at bedside for concerns of transient mental status changes at home. Patient did not remember coming from dialysis or getting his dialysis session but did have a 2.5 hour chair time with fluid removal. He is below his dry weight at this time at 101.5 kg when his goal weight is 103 kg. Patient is presently alert oriented x4, answers all questions appropriately and family confirms that he is back to his baseline mentation. No falls or injuries. Patient is otherwise had episode diarrhea but no other complaints recently. Patient himself is awake and answering questions stating he has no symptoms at this time. Workup was underway. <Royal Conte MD - Last Filed: 05/11/24 00:36> Related Data Home Medications: Home Medications ?Medication ?Instructions ?Recorded ?Confirmed ?Last Taken ?Type ergocalciferol (vitamin D2) 1,250 1,250 mcg PO MONTHLY 06/13/20 05/11/24 Unknown History mcg (50,000 unit) capsule (Vitamin D2) fish,flax,primrose,borag 1 cap PO DAILY 06/13/20 05/11/24 Unknown History oils-om3,6,9 no5 400 mg-400 mg-200 mg capsule (Matthews 3-6-9 Fatty Acids) aspirin 81 mg tablet,delayed 81 mg PO DAILY 09/10/20 05/11/24 Unknown History release (Adult Low Dose Aspirin) acetaminophen 325 mg capsule 650 mg PO .prn PRN fever or pain 09/12/20 05/11/24 Unknown History docusate sodium 100 mg tablet 100 mg PO BID 09/12/20 05/11/24 Unknown History sevelamer HCl 800 mg tablet 800 mg PO TID 09/12/20 05/11/24 Unknown History tenapanor 30 mg tablet (Xphozah) 30 mg PO BID 02/13/24 05/11/24 Unknown History furosemide 80 mg tablet 80 mg PO Q12H 05/11/24 05/11/24 05/04/24 00:00 History 80 mg nifedipine 60 mg tablet,extended 60 mg PO Q12H 05/11/24 05/11/24 Unknown History release <Alexandria Mcrae PA-C - Last Filed: 05/11/24 12:29> Allergies/Adverse Reactions: Allergies Allergy/AdvReac Type Severity Reaction Status Date / Time No Known Allergies Allergy Verified 05/10/24 18:15 <Alexandria Mcrae PA-C - Last Filed: 05/11/24 12:29> Review of Systems Review of Systems: As reviewed above in HPI <Royal Conte MD - Last Filed: 05/11/24 00:36> [facility] Past Medical History Medical History: Medical History Dialysis patient HLD (hyperlipidemia) Anxiety Depression Gout ESRD (end stage renal disease) <Alexandria Mcrae PA-C - Last Filed: 05/11/24 12:29> Surgical History Surgical History: Surgical History Status post arthroscopy of right knee Status post creation of arteriovenous fistula <Alexandria Mcrae PA-C - Last Filed: 05/11/24 12:29> Family History Family History: Family History Father Hypertension Heart disease Mother Leukemia Son Asthma Hypertension Daughter Hypertension <Alexandria Mcrae PA-C - Last Filed: 05/11/24 12:29> Social History Social History: Social History Smoking packs per day: 1 Smoking cigarettes per day: 20.0 Smoking status: Former smoker Tobacco type: cigarettes Second hand tobacco smoke exposure: No Alcohol intake: never Substance use: never Substance use type: does not use Do You Feel Safe in your Home?: Yes Lack of Transportation: No Lack of Food: Never True Current Housing: I Have Housing Concerned About Future Housing: No Difficulty Paying Gas/Electric Bills: No Difficulty Paying for Meds: No Currently Unemployed: No Education: Associate Degree Difficulty w/ Childcare or Family Care: No Living arrangements: alone Occupation/Education: retired Gender identity (if verbalized by the patient): Male Spiritual care concerns: No <Alexandria Mcrae PA-C - Last Filed: 05/11/24 12:29> Exam Narrative: GENERAL: [Well-appearing, well-nourished, and in no acute distress.] HEAD: [Normocephalic, atraumatic.] EYES: [PERRLA and EOMI.] ENT: Nares clear, no rhinorrhea or epistaxis. Mucous membranes dry. NECK: Supple. CHEST: [Clear to auscultation. No respiratory distress.] HEART: [Regular rate and rhythm]. No murmur heard. [Normal peripheral pulses.] ABDOMEN: [Soft, nondistended], [nontender], [No rigidity or guarding] EXTREMITIES: Normal range of motion. [No edema.] Left upper extremity AV fistula with palpable thrill. SKIN: Warm, dry, no rash. NEURO: [No focal deficits]. Alert and oriented [x3.] PSYCH: [Normal mood and affect.] <Royal Conte MD - Last Filed: 05/11/24 00:36> Course Vital Signs Vital signs: Vital Signs Temperature 98.6 F 05/10/24 18:09 Pulse Rate 86 05/10/24 18:09 Respiratory Rate 18 05/10/24 18:09 Blood Pressure 132/49 L 05/10/24 18:09 Pulse Oximetry 99 05/10/24 18:09 Oxygen Delivery Room Air 05/10/24 18:09 Temperature 99.8 F H 05/11/24 11:58 Pulse Rate 64 05/11/24 11:58 Respiratory Rate 18 05/11/24 11:58 Blood Pressure 175/61 H 05/11/24 11:58 Pulse Oximetry 98 05/11/24 11:58 Oxygen Delivery Room Air 05/11/24 04:00 <Alexandria Mcrae PA-C - Last Filed: 05/11/24 12:29> Vital Signs Temperature 98.6 F 05/10/24 18:09 Pulse Rate 86 05/10/24 18:09 Respiratory Rate 18 05/10/24 18:09 Blood Pressure 132/49 L 05/10/24 18:09 Pulse Oximetry 99 05/10/24 18:09 Oxygen Delivery Room Air 05/10/24 18:09 Temperature 99.8 F H 05/11/24 11:58 Pulse Rate 64 05/11/24 11:58 Respiratory Rate 18 05/11/24 11:58 Blood Pressure 175/61 H 05/11/24 11:58 Pulse Oximetry 98 05/11/24 11:58 Oxygen Delivery Room Air 05/11/24 04:00 <Royal Conte MD - Last Filed: 05/11/24 00:36> MDM - Altered Mental Status MDM Narrative Medical decision making narrative: 78-year-old male with history of end-stage renal disease on dialysis Tuesday, hypertension. Patient presents for transient altered mental status at home. He was confused about dialysis today after he returned and was not sure if he had full chair time. His family confirms that he did have a full chair time, they remove fluid and he is actually under his goal weight at this time. Patient is acting appropriately presently and denies any nauseousness, vomiting but did have an episode diarrhea and triage. Endorses feeling back to his baseline his family corroborates states that he is acting back to his baseline at this time. No head injury trauma. He did remember going to dialysis now and had a full chair time. He has no symptoms whatsoever during my initial encounter with normal vital signs as entered no hypertension, tachycardia, fever or hypoxia. He has a palpable thrill in his left AV fistula, appears clinically dehydrated and is below his dry weight suspicious for too much diuresis during dialysis today and potential fluid shifts, electrolyte shifts, dialysis disequilibrium syndrome, less likely intracranial pathology such as stroke or mass or brain bleed. Will evaluate with CBC, CMP, EKG, chest x-ray, troponin, CT of the head, VBG for base status. He was provided L of fluid and re-evaluated frequently. Placed on groundwater monitoring technician and has frequent PVCs and AFib on monitor which is reportedly new per family. No documented history. Workup shows no leukocytosis or anemia worse than his baseline. Slightly thrombocytopenic compared to previous labs. Coagulation panel within normal limits. VBG shows contraction alkalosis the pH is 7.5, bicarb of 36.5, pCO2 45.5. Likely secondary to aggressive fluid removal during dialysis and some episodes of diarrhea. Electrolytes show normal potassium level, BUN and creatinine at 30 normal end-stage renal dysfunction. Normal glucose. Elevated troponin at 0.179 which could be potential chronic from his end-stage dialysis however in the setting of new onset atrial fibrillation we will trend with serial labs. Negative viral panel. Head CT shows no acute intracranial findings. Serial EKGs were obtained here which show atrial fibrillation with frequent PVCs. I discussed the case with the instrument adjuster Dr. Gilbert over the phone. He recommends initiating heparin and will evaluate the patient tomorrow. Patient was re-evaluated frequently, remains on groundwater monitoring technician with frequent ectopy and PVCs. He was started on heparin and repeat troponin is pending. Discussed with multiple family members the plan going forward for Cardiology to evaluate him inpatient and for admission to the hospitalist service. They were comfortable with this. Patient is made aware and comfortable with this as well. Spoke to the hospitalist who accepted the patient to an IMU bed at this time. Patient remains hemodynamically stable. <Royal Conte MD - Last Filed: 05/11/24 00:36> Medical Records Attestation: I reviewed the patient's medical records. <Royal Conte MD - Last Filed: 05/11/24 00:36> Lab Data Attestation: I reviewed the patient's lab results. <Royal Conte MD - Last Filed: 05/11/24 00:36> Result diagrams: 05/11/24 06:44 05/11/24 06:44 <Alexandria Mcrae PA-C - Last Filed: 05/11/24 12:29> Labs: Lab Results 05/10/24 Range/Units 20:34 WBC 4.6 (4.5-10.0) K/mm3 RBC 3.32 L (4.6-6.20) M/mm3 Hgb 10.8 L (14.0-18.0) g/dL Hct 32.9 L (42.0-52.0) % MCV 99.1 (80-100) fl MCH 32.5 (26-34) pg MCHC 32.8 (32-36) g/dl RDW 16.0 H (11.5-14.5) % Plt Count 105 L (150-375) k/mm3 MPV 10.1 (7.4-10.4) fl Immature Gran % (Auto) 0.9 H (0-0.5) % Neut % (Auto) 88.8 H (45.5-73.1) % Lymph % (Auto) 6.6 L (18.3-44.2) % Wake % (Auto) 3.5 (2.6-8.5) % Eos % (Auto) 0.0 (0-4.4) % Baso % (Auto) 0.2 (0.2-1.2) % Lymph # (Auto) 0.30 L (0.9-3.2) K/mm3 Wake # (Auto) 0.2 (0.1-0.6) K/mm3 Eos # (Auto) 0.0 (0-0.3) K/mm3 Baso # (Auto) 0.0 (0.0-0.1) K/mm3 Abs Immat Gran (auto) 0.04 H (0.00-0.031) K/mm3 Absolute Neuts (auto) 4.1 (1.3-6.7) K/mm3 Absolute Nucleated RBC 0.000 (0.0-0.012) K/mm3 Nucleated RBC % 0.0 (0.0-0.2) % % Immature Plt Fraction 3.0 (0.9-11.2) % PT 12.6 (11.1-14.7) Seconds INR 0.9 APTT 30.2 (22.3-36.8) Seconds Sodium 138 (137-145) mmol/L Potassium 3.5 (3.4-5.0) mmol/L Chloride 89 L (98-107) mmol/L Carbon Dioxide > 40 H (22-30) mmol/L Anion Gap (4-12) mmol/L BUN 19 D (9-20) mg/dL Creatinine 5.31 H (0.7-1.3) mg/dL Estim Creat Clear Calc 13 ml/min Estimated GFR 10 L (59 - ) Glucose 115 H (65-110) mg/dL Calcium 9.4 (8.4-10.2) mg/dL Magnesium 1.9 (1.6-2.3) mg/dL Total Bilirubin 0.8 (0.2-1.3) mg/dL AST 32 (17-59) U/L ALT 18 (6-50) U/L Alkaline Phosphatase 67 (38-126) U/L Troponin I 0.179 H* (0.000-0.034) ng/mL Total Protein 7.0 (6.3-8.2) g/dL Albumin 4.0 (3.5-5.1) g/dL Influenza A (RT-PCR) Negative (Negative) Influenza B (RT-PCR) Negative (Negative) RSV (RT-PCR) Negative (Negative) SARS-CoV-2 RNA (RT-PCR) Negative (Negative) <Alexandria Mcrae PA-C - Last Filed: 05/11/24 12:29> Lab Results 05/10/24 Range/Units 20:34 WBC 4.6 (4.5-10.0) K/mm3 RBC 3.32 L (4.6-6.20) M/mm3 Hgb 10.8 L (14.0-18.0) g/dL Hct 32.9 L (42.0-52.0) % MCV 99.1 (80-100) fl MCH 32.5 (26-34) pg MCHC 32.8 (32-36) g/dl RDW 16.0 H (11.5-14.5) % Plt Count 105 L (150-375) k/mm3 MPV 10.1 (7.4-10.4) fl Immature Gran % (Auto) 0.9 H (0-0.5) % Neut % (Auto) 88.8 H (45.5-73.1) % Lymph % (Auto) 6.6 L (18.3-44.2) % Wake % (Auto) 3.5 (2.6-8.5) % Eos % (Auto) 0.0 (0-4.4) % Baso % (Auto) 0.2 (0.2-1.2) % Lymph # (Auto) 0.30 L (0.9-3.2) K/mm3 Wake # (Auto) 0.2 (0.1-0.6) K/mm3 Eos # (Auto) 0.0 (0-0.3) K/mm3 Baso # (Auto) 0.0 (0.0-0.1) K/mm3 Abs Immat Gran (auto) 0.04 H (0.00-0.031) K/mm3 Absolute Neuts (auto) 4.1 (1.3-6.7) K/mm3 Absolute Nucleated RBC 0.000 (0.0-0.012) K/mm3 Nucleated RBC % 0.0 (0.0-0.2) % % Immature Plt Fraction 3.0 (0.9-11.2) % PT 12.6 (11.1-14.7) Seconds INR 0.9 APTT 30.2 (22.3-36.8) Seconds Sodium 138 (137-145) mmol/L Potassium 3.5 (3.4-5.0) mmol/L Chloride 89 L (98-107) mmol/L Carbon Dioxide > 40 H (22-30) mmol/L Anion Gap (4-12) mmol/L BUN 19 D (9-20) mg/dL Creatinine 5.31 H (0.7-1.3) mg/dL Estim Creat Clear Calc 13 ml/min Estimated GFR 10 L (59 - ) Glucose 115 H (65-110) mg/dL Calcium 9.4 (8.4-10.2) mg/dL Magnesium 1.9 (1.6-2.3) mg/dL Total Bilirubin 0.8 (0.2-1.3) mg/dL AST 32 (17-59) U/L ALT 18 (6-50) U/L Alkaline Phosphatase 67 (38-126) U/L Troponin I 0.179 H* (0.000-0.034) ng/mL Total Protein 7.0 (6.3-8.2) g/dL Albumin 4.0 (3.5-5.1) g/dL Influenza A (RT-PCR) Negative (Negative) Influenza B (RT-PCR) Negative (Negative) RSV (RT-PCR) Negative (Negative) SARS-CoV-2 RNA (RT-PCR) Negative (Negative) <Royal Conte MD - Last Filed: 05/11/24 00:36> ABG Data ABG results: 05/10/24 21:28 VBG pH 7.522 H* VBG pCO2 45.5 VBG pO2 < 27.0 L VBG HCO3 36.5 H O2 Delivery Device Room air O2 Liters/Min Not Reportable FiO2 21 <Alexandria Mcrae PA-C - Last Filed: 05/11/24 12:29> 05/10/24 21:28 VBG pH 7.522 H* VBG pCO2 45.5 VBG pO2 < 27.0 L VBG HCO3 36.5 H O2 Delivery Device Room air O2 Liters/Min Not Reportable FiO2 21 <Royal Conte MD - Last Filed: 05/11/24 00:36> Attestation: I personally reviewed and interpreted this ABG as follows: <Royal Conte MD - Last Filed: 05/11/24 00:36> Interpretation: Acute contraction metabolic alkalosis <Royal Conte MD - Last Filed: 05/11/24 00:36> Imaging Data Attestation: I personally reviewed and interpreted this imaging study as follows: <Royal Conte MD - Last Filed: 05/11/24 00:36> My impression: Impressions Head CT 05/10/24 19:17 IMPRESSION: No acute intracranial findings. <Royal Conte MD - Last Filed: 05/11/24 00:36> Critical Care Time Critical Care Time Critical Care Time: Yes <Royal Conte MD - Last Filed: 05/11/24 00:36> Total Critical Care Time: 35 <Royal Conte MD - Last Filed: 05/11/24 00:36> Discharge Plan Discharge Clinical Impression: New onset a-fib, Elevated troponin, End stage chronic kidney disease, Mental status change resolved AMS (altered mental status) Qualifiers: Altered mental status type: unspecified Qualified Code(s): R41.82 - Altered mental status, unspecified <Alexandria Mcrae PA-C - Last Filed: 05/11/24 12:29> Patient Disposition: Still a Patient <Alexandria Mcrae PA-C - Last Filed: 05/11/24 12:29> Condition: Stable <Alexandria Mcrae PA-C - Last Filed: 05/11/24 12:29> Time of Disposition: 00:36 <Alexandria Mcrae PA-C - Last Filed: 05/11/24 12:29> 00:36 <Royal Conte MD - Last Filed: 05/11/24 00:36>
--- NOTE | 2024-05-10 18:47 | ECG_ITS ---
Test Date: 2024-05-10 20:25:51 Measurements Intervals [place] Rate: 61 P: 0 CO: 0 QRS: -13 QRSD: 120 T: 49 QT: 449 QTc: 455 Interpretive Statements SINUS RHYTHM WITH COMPLETE HEART BLOCK WITH VENTRICULAR PREMATURE COMPLEXES JUNCTIONAL ESCAPE RHYTHM INTRAVENTRICULAR CONDUCTION DELAY POSSIBLE ANTERIOR MYOCARDIAL INFARCTION , OF INDETERMINATE AGE CONSIDER INFERIOR INFARCT, AGE INDETERMINATE BASELINE ARTIFACT- I, II, III, AVR, AVL, AVF, V1-V6 ABNORMAL ECG No previous ECG available for comparison Electronically Signed On 05-11-2024 07:10:10 SENIOR PROGRAM ANALYST by [place] Contreras D.O.
[2024-05-10 20:30] VITALS: O2SAT 96
[2024-05-10 20:42] LABS: Basophils Percent Auto 0.2 % (0.2-1.2); Hematocrit 32.9 % (42.0-52.0); Hemoglobin 10.8 g/dL (14.0-18.0); Immature Granulocyte Absolute 0.04 K/mm3 (0.00-0.031); Immature Granulocyte Percent A 0.9 % (0-0.5); Lymphocytes Percent Auto 6.6 % (18.3-44.2); Mean Corpuscular HGB Conc 32.8 g/dl (32-36); Mean Corpuscular Hemoglobin 32.5 pg (26-34); Mean Corpuscular Volume 99.1 fl (80-100); Mean Platelet Volume 10.1 fl (7.4-10.4); Monocytes Absolute Auto 0.2 K/mm3 (0.1-0.6); Monocytes Percent Auto 3.5 % (2.6-8.5); Neutrophils Absolute Auto 4.1 K/mm3 (1.3-6.7); Neutrophils Percent Auto 88.8 % (45.5-73.1); Platelet Count Result 105 k/mm3 (150-375); Red Blood Count 3.32 M/mm3 (4.6-6.20); White Blood Count 4.6 K/mm3 (4.5-10.0)
[2024-05-10 20:51] LABS: INR 0.9; Prothrombin Time 12.6 Seconds (11.1-14.7)
[2024-05-10 20:52] LABS: Alanine Aminotransferase 18 U/L (6-50); Alkaline Phosphatase 67 U/L (38-126); Aspartate Amino Transferase 32 U/L (17-59); Bilirubin,Total 0.8 mg/dL (0.2-1.3); Blood Urea Nitrogen 19 mg/dL (9-20); Calcium 9.4 mg/dL (8.4-10.2); Carbon Dioxide > 40 mmol/L (22-30); Chloride 89 mmol/L (98-107); Estimated CRCL calculation 13 ml/min; Estimated Glomerular Filt Rate 10; Glucose 115 mg/dL (65-110); Partial Thromboplastin Time 30.2 Seconds (22.3-36.8); Potassium 3.5 mmol/L (3.4-5.0); Sodium 138 mmol/L (137-145)
[2024-05-10 21:15] VITALS: BP 161/53; PULSE 68; RESP 18; O2SAT 98
[2024-05-10 21:15] LABS: Influenza A QL RT-PCR Negative (Negative); Influenza B QL RT-PCR Negative (Negative); RSV RNA, RT-PCR Negative (Negative); SARS-CoV-2 RNA PCR Negative (Negative)
[2024-05-10 21:31] LABS: Fractional Inspired Oxygen 21 %; HCO3 VBG 36.5 mEq/l (24.0-30.0); PCO2 VBG 45.5 mmHg (42.0-48.0)
[2024-05-10 21:32] LABS: Device ROOM AIR; PO2 VBG < 27.0 mmHg (35.0-45.0); pH VBG 7.522 (7.300-7.400)
--- OUTSIDE RECORDS SUMMARY | 2024-05-10 21:46 | XMS_ITS | Clinical Summary ---
Author Organization [facility] Address [address] [place] [address] Phone Care Team Providers Care Mask Former Name Role Phone Rudy Estrada MD Primary [...] Comments Blood Pressure 163/78 05/09/2020 11:11 AM TRIM ATTACHER Pulse 63 05/09/2020 11:11 AM TRIM ATTACHER Temperature 36.4 C (97.5 F) 05/09/2020 11:11 AM TRIM ATTACHER Respiratory Rate - - Oxygen Saturation 98% 05/09/2020 11: 11 AM TRIM ATTACHER Inhaled Oxygen Concentration - - Weight 106.5 kg (234 lb 14.4 oz) 2020 11:11 AM TRIM ATTACHER Height 182.9 cm (6') 05/09/2020 11:11 AM TRIM ATTACHER Body Mass Index 31.86 05/09/2020 11:11 AM TRIM ATTACHER Plan of Treatment Health Maintenance Due Date Last Done Comments DTAP/TDAP/TD VACCINES (1 - Tdap) 06/06/1962 ZOSTER VACCINE (1 of 2) 06/06/1993 RSV VACCINE (60+ or ) (1 - 1-dose 75+ series) 06/06/2018 INFLUENZA VACCINE (#1) 2023 12/27/2019 PNEUMOCOCCAL VACCINE 50+ YEARS Completed 02/13/2014 , 02/28/2012 Care Teams Mask Former Relationship Specialty Start Date End Date Rudy Estrada MD PCP - General Internal Medicine 02/05/20
--- OUTSIDE RECORDS SUMMARY | 2024-05-10 21:46 | XMS_ITS | Referral Summary ---
Author Organization [facility] Address [address] [place] [address] Care Team Providers Care Cleaner Assistant Name Role Phone Ace Manriquez MD Unavailable [phone] Harris Aranda MD Primary Care Provider Avtar Finley MD Unavailable [phone] Allergies No known active allergies Medications atorvastatin (LIPITOR) 80 mg tablet Take 80 mg by mouth daily Active allopurinol (ZYLOPRIM) 100 mg tablet Take 100 mg by mouth daily. Active meclizine HCl (MECLIZINE ORAL) Take 25 mg by mouth daily as needed (for Vertigo) Active OneTouch Ultra Blue Test Strip strip TEST DAILY UTD 0 Active gabapentin (NEURONTIN) 100 mg capsule Take 100 mg by mouth 2 (two) times a day as needed 1 Active escitalopram (LEXAPRO) 10 mg tablet Take 10 mg by mouth daily 1 Active omega-3 fatty acids (LOVAZA) 1 gram capsule Take 2 g by mouth 2 (two) times a day Active vitamin B complex with C-folic acid (NEPHROCAP) 1 mg capsuleIndicatio ns:Vitamin Deficiency Prevention Take 1 capsule by mouth daily Active paricalcitoL (ZEMPLAR) 1 mcg capsuleIndicatio ns: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 Take 1 mcg by mouth daily Active ALPRAZolam (XANAX) 0.25 mg tablet Take 1 tablet (0.25 mg total) by mouth nightly 0 1 Active midodrine (PROAMATINE) 2.5 mg tabletIndication s:Symptomatic Orthostatic Hypotension Take 1 tablet (2.5 mg total) by mouth 2 (two) times a day before breakfast and dinner 60 tablet 1 Active irbesartan (AVAPRO) 150 mg tablet Take 150 mg by mouth nightly Active aspirin 81 mg enteric coated tablet Take 81 mg by mouth daily Active Active Problems Problem Noted Date Diagnosed Date Transient hypotension 08/05/2020 Mild malnutrition 07/30/2020 Acute metabolic encephalopathy 07/20/2020 Hypertensive urgency 07/20/2020 End stage renal disease ([facility]) 07/20/2020 Hyperkalemia 07/20/2020 Physical debility 07/20/2020 Abnormal cardiovascular stress test 07/20/2020 Overview (07/30/2020): Added automatically from request for surgery [id number] Controlled type 2 diabetes m ellitus without complication, without long-term current use of insulin ([facility]) 06/24/2020 History of prostate cancer 06/24/2020 Chronic kidney disease (CKD), stage V ([facility]) 12/20/2019 Overview (12/20/2019): Added automatically from request for surgery [id number] CKD (chronic kidney disease) stage 5, GFR less than 15 ml/min ([facility]) 10/19/2017 Essential hypertension 10/19/2017 Anemia in stage 5 chronic ki dney disease, not on chronic dialysis 10/19/2017 Secondary hyperparathyroidism 10/19/2017 Immunizations Immunization Administration Dates Next Due Hep B Vaccine 04/17/2010,03/10/2010,02/04/2010 Hep B, Adolescent or Pediatric 04/17/2010,2009,02/04/2010 Influenza, Quadrivalent, Hig h Dose, Preservative Free, Intrr 12/27/2019 Pneumococcal Conjugate PCV 13 02/13/2014 Pneumococcal Polysaccharide PPV23 02/28/2012 Social History Tobacco Use Types Packs/Day Years Used Date Smoking Tobacco: Former Cigarettes 1 10 1 972 - 1982 Smokeless Tobacco: Never Tobacco Cessation:Counseling Given: Not Answered AUDIT-C Answer Date Recorded Q1: How often do you have a drink containing alc ohol? 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 Gender Identity Not on file Sexual Orientation Not on file Last Filed Vital Signs Vital Sign Reading Time Taken Comments Blood Pressure 188/68 12/23/2021 12:25 PM CDT Pulse 73 12/23/2021 12:25 PM CDT Temperature 36.4 C (97.5 F) 12/23/2021 10:40 AM CDT Respiratory Rate 12 12/23/2021 12:25 PM CDT Oxygen Saturation 99% 12/23/2021 12:25 PM CDT Inhaled Oxygen Concentration - - Weight 99.3 kg (219 lb) 12/23/2021 10:40 AM CDT Height 182.9 cm (6') 12/23/2021 10:40 AM CDT Body Mass Index 29.7 12/23/2021 10:40 AM CDT Plan of Treatment Not on file Procedures Procedure Name Priority Date/Time Associated Diagnosis Comments EGFR STAT 08/07/2021 6:[address] ABDOMEN PELVIS W CONTRAST IP Routine 07/26/2020 9:15 AM CDT HEMOGLOBIN A1C Routine 07/22/2020 9:27 AM CDT LIPID PANEL Routine 06/16/2020 2:35 PM CDT End stage renal disease (CMS/HCC) from Last 3 Months or Most Recently Relevant to Health Maintenance Results * (ABNORMAL) eGFR (08/07/2021 6:38 AM CDT) eGFR 10(L) 90 - 130 mL/min/1. [address] [facility] Comment: Interpretive Data Reference Interval Normal >/= 90 mL/min/1.73m2 Mildly decreased* 60 - 89 mL/min/1.73m2 Mildly to moderately decreased 45 - 59 mL/min/1.73m2 Moderately to severely decreased 30 - 44 mL/min/1.73m2 Severely decreased 15 - 29 mL/min/1.73m2 Kidney Failure < 15 mL/min/1.73m2 *Relative to young adult level Estimated glomerular filtration rate is determined by the 2020 CKD-EPI equation recommended by the National Kidney Foundation (A Unifying Approach to GFR Estimation: Recommendations of the NKF-ASK Task Force on Reassessing the Inclusion of Race in Diagnosing Kidney Disease, JASN 2020). The CKD-EPI equation should not be used for patients with unstable renal function and has not been validated in children and those over 70. Current interpretive data was last reviewed 2021. Blood 08/07/2021 6:38 AM CDT 08/07/2021 7:46 AM CDT us Paco Gibson MD LAB BLOOD ORDERABLES Zulay wheeler Result [facility] [address] [facility] [place] [address] * CT Abdomen Pelvis W Contrast (07/26/2020 9:15 AM CDT) Anatomical Region Laterality Modality Body N/A Computed Tomogra phy 07/26/2020 10:3 5 AM CDT Impressions 07/26/2020 10:35 AM CDT 1. 7 mm hyperenhancing hepatic segment 7 lesion corresponding to hypoattenuating lesion seen on noncontrast imaging. MRI can be obtained for further evaluation if clinically warranted. 2. Unchanged tiny bilateral basilar lung nodules which may be infectious or inflammatory. 3. Unchanged right adrenal adenoma and multiple bilateral renal cysts. Electronically signed by: Arvind Ortega M.D. Narrative 07/26/2020 10:35 AM CDT EXAMINATION: Computed tomography of the abdomen and pelvis with intravenous contrast HISTORY: Evaluate liver lesion. TECHNIQUE: Transaxial computed tomographic images of the abdomen and pelvis were obtained with intravenous contrast according to the standard protocol after the uneventful administration of 95 mL Opti-Ray 320 intravenous contrast. COMPARISON: 06/16/2020 FINDINGS: There is a 7 mm hyperattenuating enhancing lesion in hepatic segment 7 (series 2, image 30) which corresponds to the hypoattenuating lesion seen on noncontrast imaging. The hepatic parenchyma is otherwise normal. Spleen and pancreas are normal. A right adrenal adenoma is unchanged. The left adrenal gland is normal. Multiple bilateral renal cortical cysts and mild cortical atrophy is present. There is no urinary tract dilatation. The gallbladder and bile ducts are nondilated. The small and large bowel are nondilated. Sigmoid colonic diverticulosis is present. Redemonstrated partial malrotation of the bowel. There is no ascites or free air. There is no adenopathy. Extensive atherosclerotic vascular calcification is present. Fiducial markers remain present in the prostate gland. Degenerative changes and multiple Schmorl's nodes of the spine are present. Mild bilateral hip osteoarthritis is present. Tiny bilateral lung base nodules are present. There is no focal consolidation or effusion. Procedure Note Arvind Ortega MD - 07/26/2020 EXAMINATION: Computed tomography of the abdomen and pelvis with intravenous contrast HISTORY: Evaluate liver lesion. TECHNIQUE: Transaxial computed tomographic images of the abdomen and pelvis were obtained with intravenous contrast according to the standard protocol after the uneventful administration of 95 mL Opti-Ray 320 intravenous contrast. COMPARISON: 06/16/2020 FINDINGS: There is a 7 mm hyperattenuating enhancing lesion in hepatic segment 7 (series 2, image 30) which corresponds to the hypoattenuating lesion seen on noncontrast imaging. The hepatic parenchyma is otherwise normal. Spleen and pancreas are normal. A right adrenal adenoma is unchanged. The left adrenal gland is normal. Multiple bilateral renal cortical cysts and mild cortical atrophy is present. There is no urinary tract dilatation. The gallbladder and bile ducts are nondilated. The small and large bowel are nondilated. Sigmoid colonic diverticulosis is present. Redemonstrated partial malrotation of the bowel. There is no ascites or free air. There is no adenopathy. Extensive atherosclerotic vascular calcification is present. Fiducial markers remain present in the prostate gland. Degenerative changes and multiple Schmorl's nodes of the spine are present. Mild bilateral hip osteoarthritis is present. Tiny bilateral lung base nodules are present. There is no focal consolidation or effusion. IMPRESSION: 1. 7 mm hyperenhancing hepatic segment 7 lesion corresponding to hypoattenuating lesion seen on noncontrast imaging. MRI can be obtained for further evaluation if clinically warranted. 2. Unchanged tiny bilateral basilar lung nodules which may be infectious or inflammatory. 3. Unchanged right adrenal adenoma and multiple bilateral renal cysts. Electronically signed by: Arvind Ortega M.D. Anderson Wilson MD IMG CT PROCEDURES Final Result * Hemoglobin A1c (07/22/2020 9:27 AM CDT) Hgb A1C 5.4 4.0 - 5.6 % [facility] Estimated Average Glucose 108 mg/dL [facility] Comment: The ADA recommends reporting an estimated Average Glucose (eAG) with all Hemoglobin A1c results using the equation derived from a study of 507 normal and diabetic adults. Minority populations were underrepresented and children were not included. (Diabetes Care 31:6151-2439, 2008). The eAG is not equivalent to a fasting glucose. Blood specimen (specimen) 07/22/2020 9:27 AM CDT 07/22/2020 9:55 AM CDT Angel Nagel DO LAB BLOOD ORDERABLES Fi nal Result [facility] [address] Department [place] [address] * (ABNORMAL) Lipid panel (06/16/2020 2:35 PM CDT) Cholesterol 190 30 - 199 mg/dL [facility] Comment: Interpretive Data Ages < or = 19 years Acceptable: <170 mg/dL Borderline high: 170-199 mg/dL High: >or= 200 mg/dL Ages > or = 20 years Desirable: <200 mg/dL Borderline high: 200-239 mg/dL High: >or= 240 mg/dL Literature References: 1. Expert Panel on Integrated Guidelines for Cardiovascular Health and Risk Reduction in Children and Adolescents. Pediatrics 2011;128:S213 2. NCEP Expert Panel. Circulation 2004;110:227 Current Interpretive Data was last revised on 2017. Triglycerides 166(H) <=149 mg/dL [facility] Comment: Interpretive Data Ages < or = 9 years Acceptable: <75 mg/dL Borderline high: 75-99 mg/dL High: >or= 100 mg/dL Ages 10 to 20 years Acceptable: <90 mg/dL Borderline high: 90-129 mg/dL High: >or= 130 mg/dL Ages > or = 20 years Desirable: <150 mg/dL Borderline high: 150-199 mg/dL High: 200-499 mg/dL Very high: >or= 499 mg/dL Literature References: 1. Expert Panel on Integrated Guidelines for Cardiovascular Health and Risk Reduction in Children and Adolescents. Pediatrics 2011;128:S213 2. NCEP Expert Panel. Circulation 2004;110:227 Current Interpretive Data was last revised on 2017. HDL 38(L) >=40 mg/dL [facility] Comment: Interpretive Data Ages < or = 19 years Acceptable: >45 mg/dL Borderline low: 40-45 mg/dL Low: <40 mg/dL Ages > or = 20 years Desirable: >or= 60 mg/dL Low: <40 mg/dL Literature References: 1. Expert Panel on Integrated Guidelines for Cardiovascular Health and Risk Reduction in Children and Adolescents. Pediatrics 2011;128:S213 2. NCEP Expert Panel. Circulation 2004;110:227 Current Interpretive Data was last revised on 2017. LDL, calculated 119 <=129 mg/dL [facility] Comment: Interpretive Data Ages < or = 19 years Acceptable: <110 mg/dL Borderline high: 110-129 mg/dL High: >or= 130 mg/dL Ages > or = 20 years Optimal: <100 mg/dL Near optimal: 100-129 mg/dL Borderline high: 130-159 mg/dL High: >160 mg/dL Literature References: 1. Expert Panel on Integrated Guidelines for Cardiovascular Health and Risk Reduction in Children and Adolescents. Pediatrics 2011;128:S213 2. NCEP Expert Panel. Circulation 2004;110:227 Current Interpretive Data was last revised on 2017. Non-HDL Cholesterol 152 mg/dL [facility] Comment: Interpretive Data Ages < or = 19 years Acceptable: <120 mg/dL Borderline high: 120-144 mg/dL High: >145 mg/dL Ages > or = 20 years When triglycerides are >200 mg/dL, Non-HDL cholesterol is a secondary target of therapy with treatment goals that are 30 mg/dL greater than the LDL cholesterol target. Literature References: 1. Expert Panel on Integrated Guidelines for Cardiovascular Health and Risk Reduction in Children and Adolescents. Pediatrics 2011;128:S213 2. NCEP Expert Panel. Circulation 2004;110:227 Current Interpretive Data was last revised on 2017. Chol/HDL ratio 5 [facility] Blood specimen (specimen) 06/16/2020 2:35 PM CDT 06/16/2020 3:54 PM CDT us Aster Cummings MD LAB BLOOD ORDERAB LES Final Result [facility] [address] [facility] [place] [address] from Last 3 Months or Most Recently Relevant to Health Maintenance Insurance MEDICARE SOLUTIONS MEDICARE [employer] MEDICARE SOLUTIONS MEDICARE SOLUTIONS MEDICARE SOLUTIONS MEDICARE SOLUTIONS Advance Directives For more information, please contact: [phone] * Full Code (Latest Code Status on File) Date Activated Date Inactivated Comments 12/23/2021 10:39 AM 12/24/2021 5:10 AM * Full Code Date Activated Date Inactivated Comments 08/05/2020 4:30 PM 08/13/2020 11:28 PM * Full Code Date Activated Date Inactivated Comments 07/20/2020 8:17 PM 08/04/2020 7:58 PM Healthcare Agents on File Name Relationship Healthcare Agent Relationshi p Communication Brianna Barker Daughter Health Care Agent Care Teams Cleaner Assistant Relationship Specialty Start Date End Date Harris Aranda MD [address] [place] [id number] PCP - General Family Medicine 08/03/21 Ace Manriquez MD Referring Physician Nephrology 03/27/20 Avtar Finley MD [id number] [place] [address] Surgeon Vascular Surgery 08/07/21
--- OUTSIDE RECORDS SUMMARY | 2024-05-10 21:46 | XMS_ITS | Clinical Summary ---
Author Organization [facility] Address [address] [place] [address] Phone Care Team Providers Care Banking Assistant Name Role Phone Silke Wilson Primary Care Provider [phone] Allergies No known active allergies Medications Medication [...] 11/12/2019 Active ergocalciferol (VITAMIN D2) 1.25 MG (05170 UT) capsule TK ONE C PO Q [...] (01/17/2020): Added automatically from request for surgery [id number] Immunizations Name Administration Dates Next Due Hep [...] Medium Risk Completed 02/13/2014, 02/28/2012 Care Teams Banking Assistant Relationship Specialty Start Date End Date Silke Wilson [address] [place] [facility] [place] [address] PCP - General Family Medicine 07/02/20
--- OUTSIDE RECORDS SUMMARY | 2024-05-10 21:46 | XMS_ITS ---
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 Name Role Phone Ace Manriquez MD Unavailable [phone] Harris Aranda MD Primary Care Provider Avtar Finley MD Unavailable [phone] Dialysis Access Sites Type Status Location Placement Date Removal Da te AV fistula Active Left Upper Arm - Anterior Procedures Procedure Name Priority Date/Time Associated Diagnosis Comments EGFR STAT 08/07/2021 6:[address] ABDOMEN PELVIS W CONTRAST IP Routine 07/26/2020 9:15 AM CDT HEMOGLOBIN A1C Routine 07/22/2020 9:27 AM CDT LIPID PANEL Routine 06/16/2020 2:35 PM CDT End stage renal disease (CMS/HCC) from Last 3 Months or Most Recently Relevant to Health Maintenance Allergies No known active allergies Medications atorvastatin [...] Hypertensive urgency 07/20/2020 End stage renal disease (CMS/HCC) 07/20/2020 Hyperkalemia 07/20/2020 Physical debility 07/20/2020 Abnormal cardiovascular stress test 07/20/2020 Overview (07/30/2020): Added automatically from request for surgery [id number] Controlled type 2 diabetes diaz camargo without complication, without long-term current use of insulin [place] 06/24/2020 History of prostate cancer 06/24/2020 Chronic kidney disease (CKD), stage V ([facility]) 12/20/2019 Overview (12/20/2019): Added automatically from request for surgery [id number] CKD (chronic kidney disease) stage 5, GFR less than 15 ml/min ([facility]) 10/19/2017 Essential hypertension 10/19/2017 Anemia in stage [...] Smoking Tobacco: Former Cigarettes 1 10 1 97 - 1981 Smokeless Tobacco: Never Tobacco Cessation:Counseling Given: Not Answered AUDIT-C Answer Date Recorded Q1: How often do you have a drink containing alc ohol? 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 73 m2 [facility] Comment: Interpretive Data Reference Interval Normal [...] MD LAB BLOOD ORDERABLES Zulay wheeler Result [facility] [address] [facility] [place] [address] * CT Abdomen Pelvis W Contrast (07/26/2020 [...] Hgb A1C 5.4 4.0 - 5.6 % [facility] Estimated Average Glucose 108 mg/dL [facility] Comment: The ADA recommends reporting an estimated Average Glucose (eAG) with all Hemoglobin A1c results using the equation derived from a study of 507 normal and diabetic adults. Minority populations were underrepresented and children were not included. (Diabetes Care 31:0636-1702, 2008). The eAG is not equivalent to a fasting glucose. Blood specimen (specimen) 07/22/2020 9:27 AM CDT 07/22/2020 9:55 AM CDT Angel Nagel DO LAB BLOOD ORDERABLES Fi nal Result [facility] [address] Department [place] [address] * (ABNORMAL) Lipid panel (06/16/2020 2:35 PM CDT) Pathologist [facility] Cholesterol 190 30 - 199 mg/dL [facility] Comment: Interpretive Data Ages < or [...] on 2017. Triglycerides 166(H) <=149 mg/dL [facility] Comment: Interpretive Data Ages < or [...] on 2017. HDL 38(L) >=40 mg/dL [facility] Comment: Interpretive Data Ages < or [...] 2017. LDL, calculated 119 <=129 mg/dL [facility] Comment: Interpretive Data Ages < or [...] on 2017. Non-HDL Cholesterol 152 mg/dL [facility] Comment: Interpretive Data Ages < or = [...] revised on 2017. Chol/HDL ratio 5 [facility] Blood specimen (specimen) 06/16/2020 2:35 PM CDT 06/16/2020 3:54 PM CDT us Aster Cummings MD LAB BLOOD ORDERAB LES Final Result [facility] [address] [facility] Department of Laboratories [place], [place] [id number] from Last 3 Months or Most Recently Relevant to Health Maintenance
--- OUTSIDE RECORDS SUMMARY | 2024-05-10 21:46 | XMS_ITS | Clinical Summary ---
Author Organization [facility] Address [address] [place] [address] Care Team Providers Care Real Estate Investment Analyst Name Role Phone Ace Manriquez MD Unavailable [phone] Harris Aranda MD Primary Care Provider Avtar Finley MD Unavailable [phone] Allergies No known active allergies Medications [...] Hypertensive urgency 07/20/2020 End stage renal disease ([facility]) 07/20/2020 Hyperkalemia 07/20/2020 Physical debility 07/20/2020 Abnormal cardiovascular stress test 07/20/2020 Overview (07/30/2020): Added automatically from request for surgery [id number] Controlled type 2 diabetes m ellitus without complication, without long-term current use of insulin ([facility]) 06/24/2020 History of prostate cancer 06/24/2020 Chronic kidney disease (CKD), stage V ([facility]) 12/20/2019 Overview (12/20/2019): Added automatically from request for surgery [id number] CKD (chronic kidney disease) stage 5, GFR less than 15 ml/min ([facility]) 10/19/2017 Essential hypertension 10/19/2017 Anemia in stage 5 chronic ki dney disease, not on chronic dialysis 10/19/2017 Secondary hyperparathyroidism 10/19/2017 Immunizations Immunization Administration Dates Next Due Hep B Vaccine 04/17/2010,03/10/2010,02/04/2010 Hep B, Adolescent or Pediatric 04/17/2010,2009,02/04/2010 Influenza, Quadrivalent, Hig h Dose, Preservative Free, Intrr 12/27/2019 Pneumococcal Conjugate PCV 13 02/13/2014 Pneumococcal Polysaccharide PPV23 02/28/2012 Surgical History Surgery Date Site/Laterality Comments KNEE SURGERY Knee Surgery - right (Added by TW Conv) Medical History Medical History Date Comments Chronic kidney disease, stag e IV (severe) ([facility]) ([facility]) Chronic kidney disease, stag e IV (severe) - Chronic Kidney Disease, Stage 4 (Added by TW Conv) Chronic kidney disease, stag e IV (severe) ([facility]) ([facility]) Chronic kidney disease, stag e IV (severe) - Chronic Kidney Disease, Stage 4 (Added by TW Conv) Hypertension Family History Medical History Relation Name Comments Dementia Brother 1 Kidney disease Brother 1 Dementia Brother 2 Dementia Brother 3 Kidney disease Brother 3 Dementia Brother 4 Kidney disease Brother 4 Dementia Brother 5 Kidney disease Brother 5 Hypertension Father Stroke Father Cancer Mother Kidney disease Sister 1 Dementia Sister 2 Dementia Sister 3 Relation Name Status Comments Brother 1 Brother 2 Brother 3 Brother 4 Brother 5 Father Mother Sister 1 Sister 2 Sister 3 Social History Tobacco Use Types Packs/Day Years Used Date Smoking Tobacco: Former Cigarettes 1 10 1981 Smokeless Tobacco: Never Tobacco Cessation:Counseling Given: Not Answered AUDIT-C Answer Date Recorded Q1: How often do you have a drink containing alc ohol? 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 Gender Identity Not on file Sexual Orientation Not on file Obstetrics History Last Filed Vital Signs Vital Sign Reading [...] 12/23/2021 10:40 AM CDT Plan of Treatment Health Maintenance Due Date Last Done Comments Albumin Creatinine Ratio, Urine 1945 Depression Screening 1945 Dilated Eye Exam 1945 Foot Exam 1945 DTaP/Tdap/Td Vaccine (1 - Tdap) 06/06/1954 Zoster Vaccine (1 of 2) 06/06/1993 Well Visit 65+ 06/06/2008 Hemoglobin A1C 01/22/2021 07/22/2020, 06/16/2020 Lipid Panel 06/16/2021 06/16/2020 eGFR 08/07/2022 08/07/2021, 07/13, 08/06/2020, Additional history exists Fall Risk Assessment 12/23/2022 12/23/2021 Covid-19 Vaccine (2023-2 5 season) 2023 06/05/2020, 05/08/2020 Influenza Vaccine (#1) 2023 12/27/2019, 2019 Hepatitis B Screening Completed 04/17/2010 , 04/17/2010, 03/10/2010, Additional history exists Pneumococcal vaccine 65+ Completed 02/13/2014, 02/11 Abdominal Aortic Aneurysm (A AA) Screen Completed 07/26/2020, 06/16/2020 Procedures Procedure Name Priority Date/Time Associated Diagnosis [...] 90 - 130 mL/min/1. 73 m2 [facility] Comment: Interpretive Data Reference Interval Normal [...] us Paco Gibson MD LAB BLOOD ORDERABLES Zualy wheeler Result [facility] Department [place] [address] * CT Abdomen Pelvis W Contrast (07/26/2020 [...] cysts. Electronically signed by: Arvind Ortega M.D. Anedrson Wilson MD IMG CT PROCEDURES Final Result * Hemoglobin A1c (07/22/2020 9:27 AM CDT) Hgb A1C 5.4 4.0 - 5.6 % [facility] Estimated Average Glucose 108 mg/dL [facility] Comment: The ADA recommends reporting an estimated Average Glucose (eAG) with all Hemoglobin A1c results using the equation derived from a study of 507 normal and diabetic adults. Minority populations were underrepresented and children were not included. (Diabetes Care 31:7621-5559, 2008). The eAG is not equivalent to a fasting glucose. Blood specimen (specimen) 07/22/2020 9:27 AM CDT 07/22/2020 9:55 AM CDT Angel Nagel DO LAB BLOOD ORDERABLES Fi nal Result [facility] [address] Department [place] [address] * (ABNORMAL) Lipid panel (06/16/2020 2:35 PM CDT) Cholesterol 190 30 - 199 mg/dL [facility] Comment: Interpretive Data Ages < or [...] on 2017. Triglycerides 166(H) <=149 mg/dL [facility] Comment: Interpretive Data Ages < or [...] on 2017. HDL 38(L) >=40 mg/dL [facility] Comment: Interpretive Data Ages < or [...] 2017. LDL, calculated 119 <=129 mg/dL [facility] Comment: Interpretive Data Ages < or [...] LAB BLOOD ORDERAB LES Final Result [facility] Department [place] [address] from Last 3 Months or Most Recently Relevant to Health Maintenance Insurance MEDICARE [employer]UT[employer] [facility] MEDICARE Address: [facility] [address] [place] [address] MEDICARE [employer]ICARE [employer]UT[employer] MEDICARE SOLUTIONS MEDICARE SOLUTIONS MEDICARE [employer] [facility] MEDICARE Address: [address] [place] [address] [address] [place] [address] Advance Directives For more information, please contact: [phone] * Full Code (Latest Code Status on [...] Barker Daughter Health Care Agent Care Teams Real Estate Investment Analyst Relationship Specialty Start Date End Date Harris Aranda MD [address] [place] [address] PCP - General Family Medicine 08/03/21 Ace Manriquez MD Referring Physician Nephrology 03/27/20 Avtar Finley MD [id number] [place] [address] Surgeon Vascular Surgery 08/07/21
[2024-05-10 22:00] VITALS: BP 141/87; PULSE 90; RESP 22; O2SAT 98
[2024-05-10 22:03] LABS: Troponin I 0.179 ng/mL (0.000-0.034)
--- NOTE | 2024-05-10 22:03 | ECG_ITS ---
Test Date: 2024-05-10 22:52:13 Measurements Intervals [place] Rate: 68 P: 0 [place]: 0 QRS: 14 QRSD: 126 T: 58 QT: 479 QTc: 511 Interpretive Statements SINUS RHTYHM WITH COMPLETE HEART BLOCK WITH VENTRICULAR PREMATURE COMPLEXES JUNCTIONAL ESCAPE RHYTHM INCOMPLETE LEFT BUNDLE BRANCH BLOCK POSSIBLE ANTERIOR MYOCARDIAL INFARCTION , OF INDETERMINATE AGE BORDERLINE ST-T WAVE ABNORMALITY- INF/HIGH LAT LEADS BASELINE ARTIFACT- I, II, III, AVR, AVL, AVF, V1-V6 ABNORMAL ECG Compared to ECG 05/10/2024 20:25:51 NO SIGNIFICANT CHANGE Electronically Signed On 05-11-2024 07:14:13 BANQUET SERVER ON CALL by Washington Contreras D.O.
[2024-05-10] MEDS: SODIUM CHLORIDE 0.9% IV 1,000 ML 999 ML IV CONT (22:41)
[2024-05-10 22:54] VITALS: BP 169/78; PULSE 71; RESP 18; O2SAT 96
[2024-05-11] VITALS (19 sets, daily range): BP systolic 107–175; BP diastolic 40–61; PULSE 42–91; RESP 16–20; TEMP 37–38.6; O2SAT 95–100; BMI 30.4
--- NOTE | 2024-05-11 | ECHO_ITS ---
Patient Info Name: [place] Barker Age: 78 years : 1945 Gender: Male Ht: 72 in Wt: 224 lbs BSA: 2.30 m2 HR: 42 bpm BP: 122 / 40 mmHg Heart Rhythm: Indeterminant Technical Quality: Poor Exam Date: 05/11/2024 12:21 PM Exam Location: Echo Lab Patient Status: Inpatient Admit Date: 05/10/2024 Staff Ordering Physician: Marianela Carias MD (apryl/edwin) Custom Tailor Apprentice: Brandi Jackson RDCS Attending Provider: Josue Haile MD Exam Type: CA echo dop color flow w con Study Info Indications - BRADYCARDIA Complete two-dimensional, color flow and Doppler transthoracic echocardiogram is performed with contrast to opacify the left ventricle and to improve the deliniation of the left ventricle endocardial borders. Contrast/Agitated Saline Contrast/Ag. Saline: Definity Amount: 2.00 ml Existing IV Access: Yes Reason for Poor Study: poor echocardiographic windows Summary 1. Technically difficult exam, definity contrast used to improve visualization. 2. Hyperdynamic left ventricular systolic function noted following definity contrast injection. 3. Sclerosis of the aortic valve with adequate leaflet excursion. 4. Abnormal septal motion consistent with bundle branch block. Left Ventricle Left ventricular chamber dimension is normal. Left ventricular systolic function is hyperdynamic, estimated at >70%. The left ventricular diastolic function is indeterminate. Right Ventricle Right ventricular chamber dimension is normal. Left Atria Left atrial chamber dimension is mildly enlarged. Right Atria Right atrial chamber dimension is not well visualized. Aortic Valve The aortic valve is trileaflet. There is mild aortic valve sclerosis. Pulmonic Valve The pulmonic valve is not well visualized. Mitral Valve The mitral valve has normal leaflets. Tricuspid Valve The tricuspid valve leaflets are not well visualized. Pericardium/Pleural The pericardium appears normal. Aorta The aortic root size at the sinus of Valsalva is normal. Left Ventricular Outflow Tract Name Value Normal LVOT 2D LVOT Diameter 1.94 cm LVOT Doppler LVOT Peak Gradient 5 mmHg LVOT Mean Gradient 3 mmHg LVOT VTI 32.78 cm LVOT VTI/AV VTI Ratio 1.01 LVOT Stroke Volume 96.79 ml Pulmonic Valve Name Value Normal RVOT Doppler RVOT Peak Gradient 7 mmHg PV Doppler PV Peak Gradient 11 mmHg Mitral Valve Name Value Normal MV Doppler MV Decel [place] 578.83 cm/s2 MV PHT 0 s MV Area (PHT) 4.70 cm2 4.00-5.00 MV Diastolic Function MV E Peak Velocity 93.39 cm/s MV A Peak Velocity 121.34 cm/s MV E/A 0.77 MV Decel Time 0 s Tricuspid Valve Name Value Normal Estimated PAP/RSVP RA Pressure 10 mmHg <=5 Aorta Name Value Normal Ascending Aorta Ao Root Diameter (MM) 3.68 cm Ao Root Diam Index (MM) 1.60 cm/m2 Aortic Valve Name Value Normal AV Doppler AV Peak Velocity 188.76 cm/s AV Peak Gradient 7 mmHg AV Mean Gradient 4 mmHg AV VTI 32.33 cm AV Area (Cont Eq VTI) 3.00 cm2 >=3.00 AV Area (Cont Eq Gary) 2.56 cm2 AV Regurgitation 2D LVOT Area 2.95 cm2 Ventricles Name Value Normal LV Dimensions 2D/MM IVS Diastolic Thickness (2D) 1.47 cm 0.60-1.00 LVID Diastole (2D) 5.20 cm 4.20-5.80 LVIW Diastolic Thickness (2D) 1.21 cm 0.60-1.00 LVID Systole (2D) 3.78 cm 2.50-4.00 LVOT Diameter 1.94 cm LV Mass (2D Cubed) 289.67 g 88.00-224.00 LV Mass Index (2D Cubed) 0.01 g/cm2 0.00-0.01 Relative Wall Thickness (2D) 0.47 LV Fractional Shortening/Ejection Fraction 2D/MM LV Fractional Shortening (2D) 27 % 25-43 LV EF (2D Teicholz) 53 % 52-72 LV Diastolic Volume (4C MOD) 90.84 ml LV EF (4C MOD) 66 % LV Diastolic Volume (2C MOD) 56.71 ml LV EF (2C MOD) 11 % LV Diastolic Volume (BP MOD) 72.22 ml 62.00-150.00 LV Diastolic Volume Index (BP MOD) 0.03 l/m2 0.03-0.07 LV Systolic Volume (BP MOD) 40.23 ml 21.00-61.00 LV Systolic Volume Index (BP MOD) 0.02 l/m2 0.01-0.03 LV EF (BP MOD) 44 % 52-72 LV Diastolic Length (4C) 7.45 cm LV Systolic Length (4C) 6.35 cm LV Stroke Volume (4C MOD) 59.54 ml Atria Name Value Normal LA Dimensions LA Dimension (MM) 4.40 cm 3.00-4.10 Report Signatures
[2024-05-11 00:05] LABS: Magnesium 1.9 mg/dL (1.6-2.3)
[2024-05-11 01:14] LABS: Basophils Percent Auto 0.2 % (0.2-1.2); Hematocrit 30.4 % (42.0-52.0); Hemoglobin 9.9 g/dL (14.0-18.0); Immature Granulocyte Absolute 0.02 K/mm3 (0.00-0.031); Immature Granulocyte Percent A 0.4 % (0-0.5); Lymphocytes Absolute Auto 0.27 K/mm3 (0.9-3.2); Lymphocytes Percent Auto 5.9 % (18.3-44.2); Mean Corpuscular HGB Conc 32.6 g/dl (32-36); Mean Corpuscular Hemoglobin 32.4 pg (26-34); Mean Corpuscular Volume 99.3 fl (80-100); Mean Platelet Volume 11.2 fl (7.4-10.4); Monocytes Absolute Auto 0.2 K/mm3 (0.1-0.6); Monocytes Percent Auto 5.1 % (2.6-8.5); Neutrophils Percent Auto 88.4 % (45.5-73.1); Platelet Count Result 105 k/mm3 (150-375); Red Blood Count 3.06 M/mm3 (4.6-6.20); White Blood Count 4.6 K/mm3 (4.5-10.0)
[2024-05-11 01:38] LABS: Troponin I 0.253 ng/mL (0.000-0.034)
[2024-05-11] MEDS: HEPARIN SOD/D5W 100 UNITS/ML 25,000 UNITS/250 ML BAG 15 UNITS IV CONT (01:41)
--- NOTE | 2024-05-11 01:50 | ECG_ITS ---
Test Date: 2024-05-11 01:50:17 Measurements Intervals [place] Rate: 69 P: 0 [place]: 0 QRS: -23 QRSD: 126 T: 39 QT: 466 QTc: 500 Interpretive Statements Sinus rhythm with complete heart block with ventricular premature complexes. JUNCTIONAL ESCAPE RHYTHM POSSIBLE ANTERIOR MYOCARDIAL INFARCTION , OF INDETERMINATE AGE [30 ms Q WAVE IN V3/V4, OR R < 0.2 mV IN V4] Electronically Signed On 05-14-2024 18:14:51 ICICLE MACHINE OPERATOR by Adalberto Shen M.D.
--- NOTE | 2024-05-11 02:19 | PC.NURSE ---
Assumed care of patient after receiving report from REBECCA Gallegos @ 0510. @0000 this RN attempted to draw labs and start heparin drip. Pt family (in the room and on the phone) requested to speak to physician before doing anything else. Family requested for EDP to call pt daughter. EDP Inés notified and stated I am not calling her. I have already gone over everything with her before she left. Shortly after, the hospitalist entered the room and spoke with family. dental laboratory assistant waited outside of the room to collect labs due to patient being a hard stick. Hospitalist left the room, patient requested time to use the bathroom. 3 hour EKG then completed and heparin drip was then started @ 0141.
--- NOTE | 2024-05-11 02:34 | PC.NURSE ---
Patient stated multiple times he wanted to provide urine sample on his own without using a straight cath.
--- NOTE | 2024-05-11 03:04 | ADMGEN ---
This patient, [place] Barker Jr., was admitted to IMU Room 206-02. Patient/family oriented to hospital policies and general routines including ID bracelet, bed and alarms, visiting hours, pain management, procedures, bathroom and other care routines, personal items, smoking policy, room service/diet, and visiting hours. Information on how to activate the Rapid Response Team has been discussed. Patient/Family are encouraged to report perceived risks to care and to ask questions if they do not understand what they are told or what they should do.
--- NOTE | 2024-05-11 03:46 | PM.IMHP ---
H&P: HPI History of Present Illness Date/Time: 05/11/24 03:46 Chief Complaint: 1.Confusion. Post-HD 2. Fatigue Narrative: [place] Barker is an 78 yo M with a Mhx significant for gout, dyslipidemia, Hypertension, ESRD on HD-TTS, After undergoing his routine HD session hours [employer], he developed an altered mental status; it was aggravated by verbal stimuli; no known alleviating factors, associated with a confused mentation and fever. He did not have any episodes of chest pain, headaches, vomiting flank pain, dysuria, skin/joint changes, cough or falls. He resides alone, does not smoke/chew tobacco, drink alcohol or consume recreational/illicit drugs; he is sedentary and is wheelchair bound for most parts of his day. Work-up findings: Troponin: 0.179 >> 0.253 ECG: A-fib with normal HR Influenza A/B, RSV, COVID-19: Not detected WBC 4.6; Hb 9.9; PLT 105; Na 138; K 3.5; Cl 89; Co2 f>40; BUN 19; Cr 5.3; GFr 10 T. Bili 0.8; AST 32; ALT 18; AlP [address]: Unremarkable [place] will be admitted, evaluated and managed for disequilibrium syndrome, NsTEMi and fever of unknown origin [facility] Past Medical History Medical History Dialysis patient HLD (hyperlipidemia) Anxiety Depression Gout ESRD (end stage renal disease) Surgical History Surgical History Status post arthroscopy of right knee Status post creation of arteriovenous fistula Family History Family History Father Hypertension Heart disease Mother Leukemia Son Asthma Hypertension Daughter Hypertension Social History Social History Smoking packs per day: 1 Smoking cigarettes per day: 20.0 Smoking status: Former smoker Tobacco type: cigarettes Second hand tobacco smoke exposure: No Alcohol intake: never Substance use: never Substance use type: does not use Do You Feel Safe in your Home?: Yes Lack of Transportation: No Lack of Food: Never True Current Housing: I Have Housing Concerned About Future Housing: No Difficulty Paying Gas/Electric Bills: No Difficulty Paying for Meds: No Currently Unemployed: No Education: Associate Degree Difficulty w/ Childcare or Family Care: No Living arrangements: alone Occupation/Education: retired Gender identity (if verbalized by the patient): Male Spiritual care concerns: No Meds Home Medications and Allergies Home Medications ?Medication ?Instructions ?Recorded ?Confirmed ?Type ergocalciferol (vitamin D2) 1,250 1,250 mcg PO MONTHLY 06/13/20 05/11/24 History mcg (50,000 unit) capsule (Vitamin D2) fish,flax,primrose,borag 1 cap PO DAILY 06/13/20 05/11/24 History oils-om3,6,9 no5 400 mg-400 mg-200 mg capsule ([place] 3-6-9 Fatty Acids) aspirin 81 mg tablet,delayed 81 mg PO DAILY 09/10/20 05/11/24 History release (Adult Low Dose Aspirin) acetaminophen 325 mg capsule 650 mg PO .prn PRN fever or pain 09/12/20 05/11/24 History docusate sodium 100 mg tablet 100 mg PO BID 09/12/20 05/11/24 History sevelamer HCl 800 mg tablet 800 mg PO TID 09/12/20 05/11/24 History irbesartan 300 mg tablet 300 mg PO DAILY #90 tabs 09/10/22 05/11/24 Rx blood sugar diagnostic (OneTouch #100 strips 06/19/23 05/11/24 Rx Ultra Test strips) atorvastatin 80 mg tablet 80 mg PO DAILY #90 tabs 07/10/23 05/11/24 Rx vitamin B complex and vitamin C 1 cap PO DAILY #90 caps 01/25/24 05/11/24 Rx no.20-folic acid 1 mg capsule (Triphrocaps) mupirocin 2 % topical ointment 1 applic topical BID #22 grams 02/13/24 05/11/24 Rx tenapanor 30 mg tablet (Xphozah) 30 mg PO BID 02/13/24 05/11/24 History benzonatate 200 mg capsule 200 mg PO TID PRN cough #20 caps 04/02/24 05/11/24 Rx allopurinol 100 mg tablet 100 mg PO DAILY #90 tabs 04/09/24 05/11/24 Rx triamcinolone acetonide 0.5 % 1 applic topical BID #15 grams 04/09/24 05/11/24 Rx topical cream nystatin 100,000 unit/gram topical 1 applic topical BID #15 grams 04/25/24 05/11/24 Rx cream furosemide 80 mg tablet 80 mg PO Q12H 05/11/24 05/11/24 History nifedipine 60 mg tablet,extended 60 mg PO Q12H 05/11/24 05/11/24 History release Allergies Allergy/AdvReac Type Severity Reaction Status Date / Time No Known Allergies Allergy Verified 05/10/24 18:15 Vital Signs Vital Signs - 24 hr 05/10/24 18:09 05/10/24 20:30 05/10/24 21:15 Temperature 98.6 F Pulse Rate 86 68 Respiratory Rate 18 18 Blood Pressure 132/49 L 161/53 H Pulse Oximetry 99 96 98 Oxygen Delivery Room Air Room Air 05/10/24 22:00 05/10/24 22:54 05/11/24 02:00 Temperature Pulse Rate 90 71 68 Respiratory Rate 22 H 18 20 Blood Pressure 141/87 H 169/78 H 135/47 L Pulse Oximetry 98 96 95 Oxygen Delivery 05/11/24 02:37 05/11/24 03:03 Temperature 101.5 F H Pulse Rate 63 56 L Respiratory Rate 20 20 Blood Pressure 126/43 L 131/42 L Pulse Oximetry 97 100 Oxygen Delivery H&P: Results Labs Labs: Short CBC 05/10/24 05/11/24 Range/Units 20:34 01:09 WBC 4.6 4.6 (4.5-10.0) K/mm3 Hgb 10.8 L 9.9 L (14.0-18.0) g/dL Hct 32.9 L 30.4 L (42.0-52.0) % Plt Count 105 L 105 L (150-375) k/mm3 BMP 05/10/24 20:34 Sodium 138 Potassium 3.5 Chloride 89 L Carbon Dioxide > 40 H BUN 19 D Creatinine 5.31 H Glucose 115 H Calcium 9.4 Cardiac Enzymes 05/10/24 05/11/24 Range/Units 20:34 01:09 Troponin I 0.179 H* 0.253 H* D (0.000-0.034) ng/mL Liver Function 05/10/24 Range/Units 20:34 Total Bilirubin 0.8 (0.2-1.3) mg/dL AST 32 (17-59) U/L ALT 18 (6-50) U/L Alkaline Phosphatase 67 (38-126) U/L Albumin 4.0 (3.5-5.1) g/dL Assessment and Plan Assessment and plan (1) Acute metabolic encephalopathy: Code(s): G93.41 - Metabolic encephalopathy Status: Acute (2) Fever of unknown origin (FUO): Code(s): R50.9 - Fever, unspecified Status: Acute (3) New onset a-fib: Code(s): I48.91 - Unspecified atrial fibrillation Status: Acute (4) End stage chronic kidney disease: Code(s): N18.6 - End stage renal disease Status: Acute Plan Acute and principal conditions 1. Disquilebrium syndrome. improved 2. Elevated troponin. 2. FUO Rx: Blood culture; anuric (no urine samples) Zosyn; Cardiology consulted; on Heparin gtt CRP, ESR Chronic and stable 1. ESRD on HD-TTS 2. Obesity. BMI 300 3. Hypertension. 4. Dyslipidemia. 5. Gout. Miscellaneous care. 1. Code status. Full 2. VTE prophylaxis. SCDs; Heparin gtt 3. Nutrition. Renal diet Hospitalist MIPS Advance Care Plan I have confirmed that the patient's Advanced Care Plan is present, code status is documented, or surrogate decision maker is listed in patient medical record.: Yes Medication Reconciliation I have utilized all available resources to obtain, update and review the patients current medications (includes all prescriptions, OTC, herbals, cannabis, and nutritional supplements).: Yes The patient is not eligible for med reconciliation; the patient is in a emergent medical situation where delaying treatment would jeopardize the patients health.: Yes
[2024-05-11] MEDS: ACETAMINOPHEN 325 MG TABLET 650 MG PO (04:07)
--- NOTE | 2024-05-11 06:01 | ECG_ITS ---
Test Date: 2024-05-11 06:06:29 Measurements Intervals [place] Rate: 49 P: 26 [place]: 250 QRS: 5 QRSD: 125 T: 5 QT: 521 QTc: 474 Interpretive Statements SINUS RHYTHM WITH COMPLETE HEART BLOCK WITH VENTRICULAR PREMATURE COMPLEXES JUNCTIONAL ESCAPE RHYTHM INTRAVENTRICULAR CONDUCTION DELAY CONSIDER INFERIOR INFARCT, AGE INDETERMINATE POSSIBLE ANTERIOR MYOCARDIAL INFARCTION, PROBABLY OLD ABNORMAL ECG Compared to ECG 05/10/2024 22:52:13 HEART RATE HAS DECREASED COMPLETE HEART BLOCK NOW PRESENT Electronically Signed On 05-11-2024 07:08:08 PAIL BAILER by Washington Contreras D.O.
--- NOTE | 2024-05-11 06:30 | PC.NURSE ---
Spoke with Dr Haile regarding this pt's orders for a straight cath/urine sample. Pt does not produce urine, due to being on dialysis and both pt and daughter report pt rarely makes urine. Pt was bladder scanned and straight cathed this shift, with no urine collected. Dr Haile re-entered orders for straight cath and urine collection, called to notifiy him of previous attempt, no new order to discontinue urine collection at this time. also notified earlier of pt having a fever, tylenol given, fever reduced. MRSA swabbed collected due to pt being a dialysis pt.
[2024-05-11 06:53] LABS: MRSA (PCR) NOT DETECTED (NOT DETECTE)
[2024-05-11 06:54] LABS: Basophils Percent Auto 0.3 % (0.2-1.2); Hematocrit 26.8 % (42.0-52.0); Hemoglobin 8.8 g/dL (14.0-18.0); Immature Granulocyte Absolute 0.04 K/mm3 (0.00-0.031); Immature Platelet Fraction Pct 3.3 % (0.9-11.2); Lymphocytes Absolute Auto 0.32 K/mm3 (0.9-3.2); Lymphocytes Percent Auto 8.2 % (18.3-44.2); Mean Corpuscular HGB Conc 32.8 g/dl (32-36); Mean Corpuscular Hemoglobin 32.5 pg (26-34); Mean Corpuscular Volume 98.9 fl (80-100); Mean Platelet Volume 11.3 fl (7.4-10.4); Monocytes Absolute Auto 0.2 K/mm3 (0.1-0.6); Monocytes Percent Auto 5.9 % (2.6-8.5); Neutrophils Absolute Auto 3.3 K/mm3 (1.3-6.7); Neutrophils Percent Auto 84.6 % (45.5-73.1); Nucleated Red Blood Cells Perc 0.5 % (0.0-0.2); Platelet Count Result 87 k/mm3 (150-375); Red Blood Count 2.71 M/mm3 (4.6-6.20); White Blood Count 3.9 K/mm3 (4.5-10.0)
[2024-05-11] MEDS: PIPERACILLIN/TAZ 2.25G/NS 50ML 2.25 GM/50 ML BAG IVPB ×3 (06:58→21:47)
[2024-05-11 07:04] LABS: Prothrombin Time 13.9 Seconds (11.1-14.7)
[2024-05-11 07:06] LABS: Alanine Aminotransferase 17 U/L (6-50); Albumin Level 3.1 g/dL (3.5-5.1); Alkaline Phosphatase 55 U/L (38-126); Anion Gap 6 mmol/L (4-12); Aspartate Amino Transferase 33 U/L (17-59); Bilirubin,Total 0.6 mg/dL (0.2-1.3); Blood Urea Nitrogen 22 mg/dL (9-20); Calcium 8.4 mg/dL (8.4-10.2); Carbon Dioxide 38 mmol/L (22-30); Chloride 91 mmol/L (98-107); Estimated CRCL calculation 11 ml/min; Estimated Glomerular Filt Rate 9; Glucose 103 mg/dL (65-110); Partial Thromboplastin Time 103.6 Seconds (22.3-36.8); Potassium 3.1 mmol/L (3.4-5.0); Sodium 135 mmol/L (137-145)
[2024-05-11 07:43] LABS: Troponin I 0.319 ng/mL (0.000-0.034)
[2024-05-11 07:44] LABS: Erythrocyte Sedimentation Rate 77 mm/hr (0-20)
[2024-05-11 08:13] LABS: CRP 6.1 mg/dL (<1.0)
--- NOTE | 2024-05-11 10:07 | P.CONNP_ITS ---
Assessment and Plan Assessment and plan (1) End stage renal disease: Code(s): N18.6 - End stage renal disease Status: Chronic Assessment and Plan: * plan HD tomorrow * continue //Tuesday dialysis schedule while hospitalized * follow electrolytes, volume status, and clearance (2) AMS (altered mental status): Qualifiers: Altered mental status type: unspecified Qualified Code(s): R41.82 - Altered mental status, unspecified Code(s): R41.82 - Altered mental status, unspecified Status: Acute Assessment and Plan: * transient and appears to have resolved * head CT scan negative * no focal deficits * related to #2(?) versus febrile illness... * follow mentation (3) Bradycardia: Code(s): R00.1 - Bradycardia, unspecified Status: Acute Assessment and Plan: * noted since early this AM * otherwise asymptomatic * follow-up on TTE * Cardiology consulted (4) Fever: Code(s): R50.9 - Fever, unspecified Status: Acute Assessment and Plan: * as noted earlier this AM * WBC normal * viral testing for influenza, RSV, and COVID negative * blood culture pending * empirically on Zosyn * no other clinical signs of infection (5) Anemia: Code(s): D64.9 - Anemia, unspecified Status: Chronic Assessment and Plan: * due to ESRD * Epogen with HD * follow trend of H/H (6) Hypertension: Qualifiers: Hypertension type: unspecified Qualified Code(s): I10 - Essential (primary) hypertension Code(s): I10 - Essential (primary) hypertension Status: Chronic Assessment and Plan: * reasonable control at this time * follow trend of hemodynamics (7) Diabetes: Code(s): E11.9 - Type 2 diabetes mellitus without complications Status: Acute Assessment and Plan: * diet controlled * no currently requiring any medications * glycemic control per hospitalist I will continue to follow the patient with you while he remains hospitalized and make further recommendations as deemed necessary. Thank you for allowing me to participate in the care of this patient. L History of Present Illness Reason for Consult Consult date: 05/11/24 Reason for consult: end stage renal disease Chief Complaint Chief complaint: New onset AFib, elevated troponin, ESRD, History of Present Illness Narrative: The patient is an 78-year-old male with a past medical history as outlined below who presented to [facility] Emergency Room for altered mental status. The patient apparently went to his regularly scheduled dialysis treatment yesterday and several hours later when he was at home, his family noted that he was a bit confused. He apparently was not entirely clear if he had actually had dialysis earlier in the day and it was not clear if he had his full treatment. The family told him that he did go to dialysis and that he did have a full treatment but he does not recall these events. As this is a significant change in terms of his baseline mentation, his family brought him to the emergency room for further assessment. Other than the a for mentioned confusion, he had no other subjective symptoms with regard to fevers, chills, nausea, vomiting, diarrhea, melena, hematochezia, dysuria, palpitations, chest pain, or shortness of breath. By the time of his arrival to the emergency room, his mentation seemed to be back to baseline. This was confirmed by his family at bedside. There were no reported head injuries or head trauma and as already mentioned, no other clinical symptoms. Workup and evaluation emergency room demonstrated the patient be hemodynamically stable and afebrile. Routine blood test demonstrated no evidence of leukocytosis or worsening anemia than baseline although he was slightly thrombocytopenic. His chemistry demonstrated labs consistent with his known history of end-stage renal disease without any critical electrolyte abnormalities. His glucose was normal and his troponin was mildly elevated. His EKG demonstrated new onset atrial fibrillation but he did not appear to be symptomatic from it. Viral testing for RSV, influenza, and COVID were negative and a subsequent CT scan of his head demonstrated no acute intracranial findings. Aside from the reported atrial fibrillation which apparently is a new finding, he was otherwise in no apparent distress. He was given a 1L of IVFs on the assumption of dehydration due to being under his dry weight and he was initiated on heparin drip and subsequently admitted to the hospital given the new onset atrial fibrillation and further evaluation of his transient altered mental status. Since his admission, he appears to be doing reasonably well although he is quite fatigued and tired as he was unable to sleep very well last night. He is currently undergoing an echocardiogram at the time my visit. However, he did have a fever earlier this morning and he is a bit more bradycardic currently. Review of his EKGs does not demonstrate atrial fibrillation but is abnormal. His daughter was at bedside and we discussed the situation. Renal consultation was requested due to his end-stage renal disease. The patient normally dialyzed on a Tuesday, , Tuesday dialysis schedule at [facility] dialysis under the care of Dr. Ace Manriquez. From a dialysis standpoint, he usually does fairly well with his dialysis treatments with relative stability in his monthly labs. As already mentioned above, he did receive his full dialysis treatment yesterday and per the nursing staff at the dialysis center, he appeared to be at baseline. He was actually under his dry weight on presentation to his dialysis center yesterday and no fluid was removed due to this fact. He had stable hemodynamics throughout his dialysis treatment and as far as the dialysis staff notes, when he left, he was at his baseline mentation. Currently, at the time my evaluation, he appears to be in no acute distress. Review of Systems 2 Review of Systems: As per HPI. [facility] Past Medical History Medical History Dialysis patient HLD (hyperlipidemia) Anxiety Depression Gout ESRD (end stage renal disease) Surgical History Surgical History Status post arthroscopy of right knee Status post creation of arteriovenous fistula Family History Family History Father Hypertension Heart disease Mother Leukemia Son Asthma Hypertension Daughter Hypertension Social History Social History Smoking packs per day: 1 Smoking cigarettes per day: 20.0 Smoking status: Former smoker Tobacco type: cigarettes Second hand tobacco smoke exposure: No Alcohol intake: never Substance use: never Substance use type: does not use Do You Feel Safe in your Home?: Yes Lack of Transportation: No Lack of Food: Never True Current Housing: I Have Housing Concerned About Future Housing: No Difficulty Paying Gas/Electric Bills: No Difficulty Paying for Meds: No Currently Unemployed: No Education: Associate Degree Difficulty w/ Childcare or Family Care: No Living arrangements: alone Occupation/Education: retired Gender identity (if verbalized by the patient): Male Spiritual care concerns: No Meds Home Medications and Allergies Home Medications ?Medication ?Instructions ?Recorded ?Confirmed ?Type ergocalciferol (vitamin D2) 1,250 1,250 mcg PO MONTHLY 06/13/20 05/11/24 History mcg (50,000 unit) capsule (Vitamin D2) fish,flax,primrose,borag 1 cap PO DAILY 06/13/20 05/11/24 History oils-om3,6,9 no5 400 mg-400 mg-200 mg capsule ([place] 3-6-9 Fatty Acids) aspirin 81 mg tablet,delayed 81 mg PO DAILY 09/10/20 05/11/24 History release (Adult Low Dose Aspirin) acetaminophen 325 mg capsule 650 mg PO .prn PRN fever or pain 09/12/20 05/11/24 History docusate sodium 100 mg tablet 100 mg PO BID 09/12/20 05/11/24 History sevelamer HCl 800 mg tablet 800 mg PO TID 09/12/20 05/11/24 History irbesartan 300 mg tablet 300 mg PO DAILY #90 tabs 09/10/22 05/11/24 Rx blood sugar diagnostic (OneTouch #100 strips 06/19/23 05/11/24 Rx Ultra Test strips) atorvastatin 80 mg tablet 80 mg PO DAILY #90 tabs 07/10/23 05/11/24 Rx vitamin B complex and vitamin C 1 cap PO DAILY #90 caps 01/25/24 05/11/24 Rx no.20-folic acid 1 mg capsule (Triphrocaps) mupirocin 2 % topical ointment 1 applic topical BID #22 grams 02/13/24 05/11/24 Rx tenapanor 30 mg tablet (Xphozah) 30 mg PO BID 02/13/24 05/11/24 History benzonatate 200 mg capsule 200 mg PO TID PRN cough #20 caps 04/02/24 05/11/24 Rx allopurinol 100 mg tablet 100 mg PO DAILY #90 tabs 04/09/24 05/11/24 Rx triamcinolone acetonide 0.5 % 1 applic topical BID #15 grams 04/09/24 05/11/24 Rx topical cream nystatin 100,000 unit/gram topical 1 applic topical BID #15 grams 04/25/24 05/11/24 Rx cream furosemide 80 mg tablet 80 mg PO Q12H 05/11/24 05/11/24 History nifedipine 60 mg tablet,extended 60 mg PO Q12H 05/11/24 05/11/24 History release Allergies Allergy/AdvReac Type Severity Reaction Status Date / Time No Known Allergies Allergy Verified 05/10/24 18:15 Vital Signs Vital Signs Temp Pulse Resp BP Pulse Ox O2 Del Method 05/11/24 07:33 98.6 F 42 L 18 122/40 L 98 05/11/24 06:00 55 L 05/11/24 05:07 99 F 05/11/24 04:07 101.5 F H 05/11/24 04:00 99 F 47 L 05/11/24 04:00 53 L 05/11/24 04:00 Room Air 05/11/24 03:53 Room Air 05/11/24 03:05 58 L 05/11/24 03:03 101.5 F H 56 L 20 131/42 L 100 05/11/24 02:37 63 20 126/43 L 97 05/11/24 02:00 68 20 135/47 L 95 05/10/24 22:54 71 18 169/78 H 96 05/10/24 22:00 90 22 H 141/87 H 98 05/10/24 21:15 68 18 161/53 H 98 05/10/24 20:30 96 Room Air 05/10/24 18:09 98.6 F 86 18 132/49 L 99 Room Air Exam 2 Narrative: GENERAL APPEARANCE: well developed well nourished male in no acute distress HEENT: normocephalic, atraumatic, normal conjunctiva and sclera, nares patient NECK: no lymphadenopathy, thyromegaly, or JVD MOUTH: normal lips, teeth, and gums CARDIOVASCULAR: RRR, normal S1 and S2, no rub RESPIRATORY: clear to auscultation bilaterally ABDOMEN: soft, nontender, nondistended, positive bowel sounds present EXTREMITIES: no evidence of cyanosis, clubbing, or edema NEUROLOGICAL: alert and oriented x 3; CN II - XII intact bilaterally; no focal deficits noted Results Lab Results 05/11/24 06:44 05/11/24 06:44 Lab results: Most recent lab results Calcium 8.4 mg/dL (8.4-10.2) 05/11/24 06:44 Calcium Cancelled 05/11/24 06:44 Magnesium 1.9 mg/dL (1.6-2.3) 05/10/24 20:34
[2024-05-11 11:38] LABS: Procalcitonin 2.1 ng/mL
[2024-05-11] MEDS: NIFEdipine 30 MG TAB.ER.24 60 MG PO ×2 (11:57→21:46)
[2024-05-11] MEDS: allopurinoL 100 MG TABLET PO (11:57)
[2024-05-11] MEDS: IRBESARTAN 150 MG TABLET 300 MG PO (11:57)
[2024-05-11] MEDS: SEVELAMER CARBONATE 800 MG TABLET PO ×3 (11:57→17:54)
[2024-05-11] MEDS: ATORVASTATIN 40 MG TABLET 80 MG PO (11:58)
[2024-05-11] MEDS: ASPIRIN 81 MG ENTERIC TABLET PO (11:58)
[2024-05-11] MEDS: VITAMIN B CMPLX/VIT C/FOLIC AC 1 CAPSULE 1 CAP PO (11:59)
[2024-05-11] MEDS: PERFLUTREN LIPID MICROSPHERES 1.5 ML VIAL DILUTED TO 10 ML TOTAL VOLUME IV PUSH (12:00)
[2024-05-11] MEDS: POTASSIUM CHLORIDE 20 MEQ ER TABLET PO (12:06)
[2024-05-11] MEDS: MICONAZOLE NITRATE 2% CREAM 30 GM TUBE 1 APPLIC TOPICAL ×2 (12:07→21:47)
[2024-05-11] MEDS: FUROSEMIDE 80 MG TABLET PO ×2 (12:07→17:54)
[2024-05-11] MEDS: MUPIROCIN 2% OINT 22 GM TUBE 1 APPLIC TOPICAL ×2 (12:07→21:47)
[2024-05-11] MEDS: TRIAMCINOLONE ACET 0.5% CREAM 15 GM TUBE 1 APPLIC TOPICAL ×2 (12:07→21:47)
--- NOTE | 2024-05-11 12:41 | IVDEFINITY ---
Prior to administration of IV Definity the patient was educated on the risks and benefits of the imaging enhancing agent including potential adverse side effects. The patient verbalized understanding. Allergies were verified. No exclusion criteria were identified and at least one of the following inclusion criteria were met: 1) physician request, 2) patient technically difficult to image (per the [place] [employer]ocardi[employer] guidelines of two or more segments not discernable within the apical view), or 3) questionable left ventricular function. ?
--- NOTE | 2024-05-11 16:34 | P.CONCA_ITS ---
Assessment and Plan Assessment and plan (1) Bradycardia: Code(s): R00.1 - Bradycardia, unspecified Status: Acute (2) HLD (hyperlipidemia): Code(s): E78.5 - Hyperlipidemia, unspecified Status: Acute (3) Hypertension: Qualifiers: Hypertension type: unspecified Qualified Code(s): I10 - Essential (primary) hypertension Code(s): I10 - Essential (primary) hypertension Status: Acute (4) Elevated troponin: Code(s): R79.89 - Other specified abnormal findings of blood chemistry Status: Acute (5) ESRD (end stage renal disease): Code(s): N18.6 - End stage renal disease Status: Acute (6) Dialysis patient: Code(s): Z99.2 - Dependence on renal dialysis Status: Acute (7) Anemia of chronic renal failure, stage 5: Code(s): N18.5 - Chronic kidney disease, stage 5; D63.1 - Anemia in chronic kidney disease Status: Acute Plan Assessment: 1. Bradycardia-patient's EKGs show sinus rhythm with second-degree Mobitz type 1 block and 2:1 block, PVCs, incomplete left bundle branch block with QRS more than 120 milliseconds. Both Mobitz type 1 and type 2 can cause 2 is to 1 block but patient has prolonged QRS duration>120 millisecond which makes second-degree Mobitz type 2 block possible. Patient continues to be bradycardic but does not have any chest pain, confusion, dizziness, lightheadedness, presyncope, syncope, diaphoresis, shortness breath at this time. We do not know if patient's original symptoms of confusion were secondary to bradycardia since there was no monitor at the time 2. Elevated troponin-could be secondary to bradycardia with is elevated due to end-stage renal disease; patient does not have any chest pain 3. Hypertension 4. Hyperlipidemia 5. End-stage renal disease on hemodialysis 6. Chronic anemia secondary to end-stage renal disease 7. Hypokalemia with potassium 3.1 8. Thrombocytopenia with platelet counts of 87,000 Plan: Patient will need further evaluation by EP to determine if he has high-grade cardiac block and need for pacemaker. Given no EP available, recommend transfer to a facility with EP services Monitor on telemetry TTE Check and replace electrolytes to keep potassium greater than 4 and magnesium greater than 2 Trend troponin to peak Continue aspirin 81 mg daily Continue statin Continue Lasix Continue nystatin Management of other medical problems per primary team History of Present Illness History of Present Illness Consult date/time: 05/11/24 16:34 Reason For Visit: New onset AFib, elevated troponin, ESRD, Narrative: 78-year-old male with history of hyperlipidemia, end-stage renal disease on dialysis, anxiety, depression, gout presents with chief complaints of confusion and fatigue after hemodialysis. After undergoing his routine hemodialysis session he developed confusion that was aggravated by verbal stimuli and associated with some fever. No chest pain, shortness of breath, palpitations, presyncope, syncope, leg swelling, recent weight gain, palpitations, cough, nausea, emesis, abdominal pain, headache, focal weakness. He lives by himself, is sedentary and wheelchair-bound for most of the day. He does not smoke, drink alcohol or consume any recreational/illicit drugs. He was noted to have bradycardia and Cardiology was consulted for further recommendations. Workup: Hemoglobin: 8.8 Platelets: 70417 Potassium: 3.1 Creatinine: 6.26 Troponin: 0.17, 0.253, 0.319 EKG: Sinus bradycardia with second-degree type 1 block (Wenckebach), PVCs, incomplete left bundle branch block, possible inferior infarct age indeterminate, possible anterior infarct age indeterminate EKG: Sinus bradycardia with 2:1 block, PVCs, incomplete left bundle branch block, possible inferior infarct age indeterminate, possible anterior infarct age indeterminate Head CT: No acute pathology Review of Systems 2 Review of Systems: Complete review of systems was performed and negative other than those mentioned in HPI [facility] Past Medical History Medical History Dialysis patient HLD (hyperlipidemia) Anxiety Depression Gout ESRD (end stage renal disease) Surgical History Surgical History Status post arthroscopy of right knee Status post creation of arteriovenous fistula Family History Family History Father Hypertension Heart disease Mother Leukemia Son Asthma Hypertension Daughter Hypertension Social History Social History Smoking packs per day: 1 Smoking cigarettes per day: 20.0 Smoking status: Former smoker Tobacco type: cigarettes Second hand tobacco smoke exposure: No Alcohol intake: never Substance use: never Substance use type: does not use Do You Feel Safe in your Home?: Yes Lack of Transportation: No Lack of Food: Never True Current Housing: I Have Housing Concerned About Future Housing: No Difficulty Paying Gas/Electric Bills: No Difficulty Paying for Meds: No Currently Unemployed: No Education: Associate Degree Difficulty w/ Childcare or Family Care: No Living arrangements: alone Occupation/Education: retired Gender identity (if verbalized by the patient): Male Spiritual care concerns: No Meds Home Medications and Allergies Home Medications ?Medication ?Instructions ?Recorded ?Confirmed ?Type ergocalciferol (vitamin D2) 1,250 1,250 mcg PO MONTHLY 06/13/20 05/11/24 History mcg (50,000 unit) capsule (Vitamin D2) fish,flax,primrose,borag 1 cap PO DAILY 06/13/20 05/11/24 History oils-om3,6,9 no5 400 mg-400 mg-200 mg capsule ([place] 3-6-9 Fatty Acids) aspirin 81 mg tablet,delayed 81 mg PO DAILY 09/10/20 05/11/24 History release (Adult Low Dose Aspirin) acetaminophen 325 mg capsule 650 mg PO .prn PRN fever or pain 09/12/20 05/11/24 History docusate sodium 100 mg tablet 100 mg PO BID 09/12/20 05/11/24 History sevelamer HCl 800 mg tablet 800 mg PO TID 09/12/20 05/11/24 History irbesartan 300 mg tablet 300 mg PO DAILY #90 tabs 09/10/22 05/11/24 Rx blood sugar diagnostic (OneTouch #100 strips 06/19/23 05/11/24 Rx Ultra Test strips) atorvastatin 80 mg tablet 80 mg PO DAILY #90 tabs 07/10/23 05/11/24 Rx vitamin B complex and vitamin C 1 cap PO DAILY #90 caps 01/25/24 05/11/24 Rx no.20-folic acid 1 mg capsule (Triphrocaps) mupirocin 2 % topical ointment 1 applic topical BID #22 grams 02/13/24 05/11/24 Rx tenapanor 30 mg tablet (Xphozah) 30 mg PO BID 02/13/24 05/11/24 History benzonatate 200 mg capsule 200 mg PO TID PRN cough #20 caps 04/02/24 05/11/24 Rx allopurinol 100 mg tablet 100 mg PO DAILY #90 tabs 04/09/24 05/11/24 Rx triamcinolone acetonide 0.5 % 1 applic topical BID #15 grams 04/09/24 05/11/24 Rx topical cream nystatin 100,000 unit/gram topical 1 applic topical BID #15 grams 04/25/24 05/11/24 Rx cream furosemide 80 mg tablet 80 mg PO Q12H 05/11/24 05/11/24 History nifedipine 60 mg tablet,extended 60 mg PO Q12H 05/11/24 05/11/24 History release Allergies Allergy/AdvReac Type Severity Reaction Status Date / Time No Known Allergies Allergy Verified 05/10/24 18:15 Vital Signs Vital Signs - 24 hr 05/10/24 18:09 05/10/24 20:30 05/10/24 21:15 Temperature 37.0 C Pulse Rate 86 68 Respiratory Rate 18 18 Blood Pressure 132/49 L 161/53 H Pulse Oximetry 99 96 98 Oxygen Delivery Room Air Room Air 05/10/24 22:00 05/10/24 22:54 05/11/24 02:00 Temperature Pulse Rate 90 71 68 Respiratory Rate 22 H 18 20 Blood Pressure 141/87 H 169/78 H 135/47 L Pulse Oximetry 98 96 95 Oxygen Delivery 05/11/24 02:37 05/11/24 03:03 05/11/24 03:05 Temperature 38.6 C H Pulse Rate 63 56 L 58 L Respiratory Rate 20 20 Blood Pressure 126/43 L 131/42 L Pulse Oximetry 97 100 Oxygen Delivery 05/11/24 03:53 05/11/24 04:00 05/11/24 04:00 Temperature Pulse Rate 53 L Respiratory Rate Blood Pressure Pulse Oximetry Oxygen Delivery Room Air Room Air 05/11/24 04:00 05/11/24 04:07 05/11/24 05:07 Temperature 37.2 C 38.6 C H 37.2 C Pulse Rate 47 L Respiratory Rate Blood Pressure Pulse Oximetry Oxygen Delivery 05/11/24 06:00 05/11/24 07:33 05/11/24 08:00 Temperature 37.0 C Pulse Rate 55 L 42 L Respiratory Rate 18 Blood Pressure 122/40 L Pulse Oximetry 98 Oxygen Delivery Room Air 05/11/24 11:58 05/11/24 12:00 Temperature 37.7 C H Pulse Rate 64 Respiratory Rate 18 Blood Pressure 175/61 H Pulse Oximetry 98 Oxygen Delivery Room Air Exam 2 Narrative: General: Alert oriented x3, no acute distress Neck: Supple, JVD + Chest: Bilaterally clear to auscultation, no rales or rhonchi Cardiac: S1, S2 +, regular rate, regular rhythm, no murmurs or rubs Extremities: Bilateral lower extremity edema 1+, no skin rash Neurologic: Alert and oriented x3, no focal neurological deficits Results Labs and Meds 05/11/24 06:44 05/11/24 06:44 Lab results: Cardiac Enzymes 05/10/24 05/11/24 05/11/24 Range/Units 20:34 01:09 06:44 AST 32 Cancelled (17-59) U/L Troponin I 0.179 H* 0.253 H* D (0.000-0.034) ng/mL 05/11/24 Range/Units 06:44 AST 33 (17-59) U/L Troponin I 0.319 H* D (0.000-0.034) ng/mL Coagulation 05/10/24 05/11/24 05/11/24 Range/Units 20:34 01:09 06:44 PT 12.6 Cancelled 13.9 (11.1-14.7) Seconds APTT 30.2 Cancelled 103.6 H (22.3-36.8) Seconds CBC 05/10/24 05/11/24 05/11/24 Range/Units 20:34 01:09 06:44 WBC 4.6 4.6 3.9 L (4.5-10.0) K/mm3 RBC 3.32 L 3.06 L 2.71 L (4.6-6.20) M/mm3 Hgb 10.8 L 9.9 L 8.8 L (14.0-18.0) g/dL Hct 32.9 L 30.4 L 26.8 L (42.0-52.0) % Plt Count 105 L 105 L 87 L (150-375) k/mm3 Lymph # (Auto) 0.30 L 0.27 L 0.32 L (0.9-3.2) K/mm3 [place] # (Auto) 0.2 0.2 0.2 (0.1-0.6) K/mm3 Eos # (Auto) 0.0 0.0 0.0 (0-0.3) K/mm3 Baso # (Auto) 0.0 0.0 0.0 (0.0-0.1) K/mm3 Comprehensive Metabolic Panel 05/10/24 05/11/24 05/11/24 Range/Units 20:34 06:44 06:44 Sodium 138 Cancelled 135 L (137-145) mmol/L Potassium 3.5 Cancelled (3.4-5.0) mmol/L Chloride 89 L (98-107) mmol/L Carbon Dioxide > 40 H (22-30) mmol/L BUN 19 D (9-20) mg/dL Creatinine 5.31 H (0.7-1.3) mg/dL Glucose 115 H (65-110) mg/dL Calcium 9.4 (8.4-10.2) mg/dL AST 32 (17-59) U/L ALT 18 (6-50) U/L Alkaline Phosphatase 67 (38-126) U/L Total Protein 7.0 (6.3-8.2) g/dL Albumin 4.0 (3.5-5.1) g/dL 05/11/24 05/11/24 05/11/24 Range/Units 06:44 06:44 06:44 Sodium (137-145) mmol/L Potassium 3.1 L (3.4-5.0) mmol/L Chloride Cancelled 91 L (98-107) mmol/L Carbon Dioxide Cancelled 38 H (22-30) mmol/L BUN Cancelled (9-20) mg/dL Creatinine (0.7-1.3) mg/dL Glucose (65-110) mg/dL Calcium (8.4-10.2) mg/dL AST (17-59) U/L ALT (6-50) U/L Alkaline Phosphatase (38-126) U/L Total Protein (6.3-8.2) g/dL Albumin (3.5-5.1) g/dL 05/11/24 05/11/24 05/11/24 Range/Units 06:44 06:44 06:44 Sodium (137-145) mmol/L Potassium (3.4-5.0) mmol/L Chloride (98-107) mmol/L Carbon Dioxide (22-30) mmol/L BUN 22 H (9-20) mg/dL Creatinine Cancelled 6.26 H (0.7-1.3) mg/dL Glucose Cancelled 103 (65-110) mg/dL Calcium Cancelled (8.4-10.2) mg/dL AST (17-59) U/L ALT (6-50) U/L Alkaline Phosphatase (38-126) U/L Total Protein (6.3-8.2) g/dL Albumin (3.5-5.1) g/dL 05/11/24 05/11/24 05/11/24 Range/Units 06:44 06:44 06:44 Sodium (137-145) mmol/L Potassium (3.4-5.0) mmol/L Chloride (98-107) mmol/L Carbon Dioxide (22-30) mmol/L BUN (9-20) mg/dL Creatinine (0.7-1.3) mg/dL Glucose (65-110) mg/dL Calcium 8.4 (8.4-10.2) mg/dL AST Cancelled 33 (17-59) U/L ALT Cancelled 17 (6-50) U/L Alkaline Phosphatase Cancelled (38-126) U/L Total Protein (6.3-8.2) g/dL Albumin (3.5-5.1) g/dL 05/11/24 05/11/24 05/11/24 Range/Units 06:44 06:44 06:44 Sodium (137-145) mmol/L Potassium (3.4-5.0) mmol/L Chloride (98-107) mmol/L Carbon Dioxide (22-30) mmol/L BUN (9-20) mg/dL Creatinine (0.7-1.3) mg/dL Glucose (65-110) mg/dL Calcium (8.4-10.2) mg/dL AST (17-59) U/L ALT (6-50) U/L Alkaline Phosphatase 55 (38-126) U/L Total Protein Cancelled 6.0 L (6.3-8.2) g/dL Albumin Cancelled 3.1 L (3.5-5.1) g/dL Intake and Output 05/11/24 05/11/24 05/11/24 07:59 15:59 23:59 Intake Total 50 334.8 Output Total 0 Balance 50 334.8 Intake: IV 50 94.8 Heparin Sod/D5w 100 Units/ml 25 94.8 ,000 units In 250 ml @ 1,500 UNITS/HR 15 mls/hr IV CONT . [id number] [facility] Rx#:[id number] Piperacillin/Hiro 2.25G/Ns 50Ml 50 2.25 gm In 50 ml @ 100 mls/hr IVPB Q8HR [facility] Rx#:[id number] Oral 240 Output: Urine 0 Straight Cath Amount 0 Other: Number of Bowel Movements Today 1 Patient Weight 05/11/24 23:59 Weight 102 kg EKG Interpretation EKG shows: bradycardia (Second-degree type 1 block, 2 is to 1 block, anterior infarct age indeterminate, inferior infarct age indeterminate, incomplete left bundle-branch block, PVCs)
[2024-05-11 16:42] LABS: Partial Thromboplastin Time 157.9 Seconds (22.3-36.8)
--- NOTE | 2024-05-11 18:41 | P.TS_ITS ---
Transfer Discharge Sum: Prov Provider Date of admission: 05/10/24 23:40 Primary care physician: Harris Aranda MD Admitting clinician: Josue Haile MD Consults: 05/10/24 Consult to Physician Routine Comment: Consulting Provider: Sage Gilbert Reason for consultation: new onset afib, elevated trop Has provider been notified: Yes 05/11/24 Consult to Physician Routine Comment: Spoke with Dr. Damico Consulting Provider: Lola Sepulveda php mysql developer/MD group to consult: Dr. Damico Reason for consultation: ESRD Has provider been notified: Yes Transfer Discharge Sum: Med Medications Active and Home Medications: Home Medications ergocalciferol (vitamin D2) 1,250 mcg (50,000 unit) capsule (Vitamin D2) 1,250 mcg PO MONTHLY 06/13/20 [History Confirmed 05/11/24] fish,flax,primrose,borag oils-om3,6,9 no5 400 mg-400 mg-200 mg capsule ([place] 3-6-9 Fatty Acids) 1 cap PO DAILY 06/13/20 [History Confirmed 05/11/24] aspirin 81 mg tablet,delayed release (Adult Low Dose Aspirin) 81 mg PO DAILY 09/10/20 [History Confirmed 05/11/24] acetaminophen 325 mg capsule 650 mg PO .prn PRN fever or pain 09/12/20 [History Confirmed 05/11/24] docusate sodium 100 mg tablet 100 mg PO BID 09/12/20 [History Confirmed 04/15 11/05] sevelamer HCl 800 mg tablet 800 mg PO TID 09/12/20 [History Confirmed 05/11/24] irbesartan 300 mg tablet 300 mg PO DAILY #90 tabs 09/10/22 [Rx Confirmed 05/11/24] blood sugar diagnostic (NubefyTouch Ultra Test strips) #100 strips 06/19/23 [Rx Confirmed 05/11/24] atorvastatin 80 mg tablet 80 mg PO DAILY #90 tabs 07/10/23 [Rx Confirmed 05/11/24] vitamin B complex and vitamin C no.20-folic acid 1 mg capsule (Triphrocaps) 1 cap PO DAILY #90 caps 01/25/24 [Rx Confirmed 05/11/24] mupirocin 2 % topical ointment 1 applic topical BID #22 grams 02/13/24 [Rx Confirmed 05/11/24] tenapanor 30 mg tablet (Xphozah) 30 mg PO BID 02/13/24 [History Confirmed 05/11/24] benzonatate 200 mg capsule 200 mg PO TID PRN cough #20 caps 04/02/24 [Rx Confirmed 05/11/24] allopurinol 100 mg tablet 100 mg PO DAILY #90 tabs 04/09/24 [Rx Confirmed 05/11/24] triamcinolone acetonide 0.5 % topical cream 1 applic topical BID #15 grams 04/09/24 [Rx Confirmed 05/11/24] nystatin 100,000 unit/gram topical cream 1 applic topical BID #15 grams 04/25/24 [Rx Confirmed 05/11/24] furosemide 80 mg tablet 80 mg PO Q12H 05/11/24 [History Confirmed 05/11/24] nifedipine 60 mg tablet,extended release 60 mg PO Q12H 05/11/24 [History Confirmed 05/11/24] Active Medications Acetaminophen (Acetaminophen 325 Mg Tablet) 650 mg PO Q4H PRN PRN Reason: Mild Pain (1-3) or Fever Last Admin: 05/11/24 04:07 Dose: 650 mg Albuterol/Ipratropium (Ipratropium 0.5 Mg/Albuterol Sulfate 2.5 Mg Ampul.Neb 3 Ml) 3 ml INHALATION Q4HRT PRN PRN Reason: shortness of breath/Wheezing Allopurinol (Allopurinol 100 Mg Tablet) 100 mg PO DAILY [facility] Last Admin: 05/11/24 11:57 Dose: 100 mg Aspirin (Aspirin 81 Mg Enteric Tablet) 81 mg PO DAILY [facility] Last Admin: 05/11/24 11:58 Dose: 81 mg Atorvastatin Calcium (Atorvastatin 40 Mg Tablet) 80 mg PO DAILY [facility] Last Admin: 05/11/24 11:58 Dose: 80 mg Benzonatate (Benzonatate 100 Mg Capsule) 200 mg PO TID PRN PRN Reason: cough Docusate Sodium (Docusate Sodium 100 Mg Capsule) 100 mg PO BID [facility] Last Admin: 05/11/24 17:55 Dose: Not Given Ergocalciferol (Ergocalciferol 50,000 Units Capsule) 50,000 units PO MONTHLY [facility] Furosemide (Furosemide 80 Mg Tablet) 80 mg PO Q12H [facility] Last Admin: 05/11/24 17:54 Dose: 80 mg Guaifenesin/Dextromethorphan (Guaifenesin/Dextromethorphan 10 Ml Udc) 10 ml PO Q4H PRN PRN Reason: Cough Heparin Sodium (Porcine) (Heparin Sodium 5,000 Units/Ml Vial) 7,000 units IV PUSH PRN PRN PRN Reason: aPTT less than 55 seconds Heparin Sodium (Porcine) (Heparin Sodium 5,000 Units/Ml Vial) 3,500 units IV PUSH PRN PRN PRN Reason: aPTT 55 - 70 seconds Heparin Sodium/Dextrose (Heparin Sodium/D5w 100 Units/Ml) 25,000 units in 250 mls @ 0 mls/hr IV CONT .Q0M [facility]; Protocol Last Titration: 05/11/24 18:03 Dose: 0 units/hr, 0 mls/hr Piperacillin Sod/Tazobactam Sod (Zosyn 2.25 Gm/Ns 50 Ml) 2.25 gm in 50 mls @ 100 mls/hr IVPB Q8HR [facility] Last Admin: 05/11/24 15:24 Dose: 100 mls/hr Irbesartan (Irbesartan 150 Mg Tablet) 300 mg PO DAILY [facility] Last Admin: 05/11/24 11:57 Dose: 300 mg Melatonin (Melatonin 5 Mg Tablet) 5 mg PO HS PRN PRN Reason: Insomnia Miconazole Nitrate (Miconazole Nitrate 2% Cream 30 Gm Tube) 1 applic TOPICAL Q12HR [facility] Last Admin: 05/11/24 12:07 Dose: 1 applic Miscellaneous Information (Nonformulary Drug (Tenapanor [Xphozah] 30 Mg Tablet) Please Obtain Home Med Or Hold) 0 each XX CLARIFY [facility] Stop: 06/10/24 00:00 Mupirocin (Mupirocin 2% Oint 22 Gm Tube) 1 applic TOPICAL Q12HR [facility] Last Admin: 05/11/24 12:07 Dose: 1 applic Nifedipine (Nifedipine 30 Mg Tab.Er.24) 60 mg PO Q12HR [facility] Last Admin: 05/11/24 11:57 Dose: 60 mg Non-Formulary Medication (Tenapanor [Xphozah]) 30 mg PO BID [facility] Stop: 06/10/24 16:59 Non-Formulary Medication (Nonformulary Nutritional Supplement) 1 each XX PRN PRN PRN Reason: PROTOCOL Stop: 05/12/24 10:25 Ondansetron HCl (Ondansetron Inj 4 Mg/2 Ml Vial) 4 mg IV PUSH Q4H PRN PRN Reason: Nausea Polyethylene Glycol (Polyethylene Glycol 3350 17 Gm Powd.Pack) 17 gm PO QAM PRN PRN Reason: Constipation Prochlorperazine Edisylate (Prochlorperazine Edisylate 10 Mg/2 Ml Vial) 10 mg IV PUSH Q6H PRN PRN Reason: Nausea And Vomiting Sevelamer Carbonate (Sevelamer Carbonate 800 Mg Tablet) 800 mg PO TID [facility] Stop: 06/10/24 10:24 Last Admin: 05/11/24 17:54 Dose: 800 mg Triamcinolone Acetonide (Triamcinolone Acet 0.5% Cream 15 Gm Tube) 1 applic TOPICAL Q12HR [facility] Last Admin: 05/11/24 12:07 Dose: 1 applic Vitamin B Complex/Folic Acid (Vitamin B Cmplx/Vit C/Folic Ac 1 Capsule) 1 cap PO DAILY [facility] Last Admin: 05/11/24 11:59 Dose: 1 cap Transfer Discharge Sum: Hosp Hospital Course Hospital course: Oscar Barker Jr. is a 78 year old male Time Spent with Patient Time attestation: Total time spent providing and/or coordinating transfer services: DS: Data Data Completed and Pending Labs on day of discharge: Labs from last 24 hours 05/11/24 05/11/24 05/11/24 16:20 06:44 06:44 WBC RBC Hgb Hct MCV MCH MCHC RDW Plt Count MPV Immature Gran % (Auto) Neut % (Auto) Lymph % (Auto) Terrell % (Auto) Eos % (Auto) Baso % (Auto) Lymph # (Auto) Terrell # (Auto) Eos # (Auto) Baso # (Auto) Abs Immat Gran (auto) Absolute Neuts (auto) Absolute Nucleated RBC Nucleated RBC % % Immature Plt Fraction ESR PT INR APTT 157.9 H VBG pH VBG pCO2 VBG pO2 VBG HCO3 O2 Delivery Device O2 Liters/Min FiO2 Sodium Potassium Chloride Carbon Dioxide Anion Gap BUN Creatinine Estim Creat Clear Calc Estimated GFR Glucose Calcium Magnesium Total Bilirubin AST ALT Alkaline Phosphatase Troponin I C-Reactive Protein Total Protein 6.0 L Albumin 3.1 L Cancelled Procalcitonin Nasal MRSA (PCR) Influenza A (RT-PCR) Influenza B (RT-PCR) RSV (RT-PCR) SARS-CoV-2 RNA (RT-PCR) 05/11/24 05/11/24 05/11/24 06:44 06:44 06:44 WBC RBC Hgb Hct MCV MCH MCHC RDW Plt Count MPV Immature Gran % (Auto) Neut % (Auto) Lymph % (Auto) Terrell % (Auto) Eos % (Auto) Baso % (Auto) Lymph # (Auto) Terrell # (Auto) Eos # (Auto) Baso # (Auto) Abs Immat Gran (auto) Absolute Neuts (auto) Absolute Nucleated RBC Nucleated RBC % % Immature Plt Fraction ESR PT INR APTT VBG pH VBG pCO2 VBG pO2 VBG HCO3 O2 Delivery Device O2 Liters/Min FiO2 Sodium Potassium Chloride Carbon Dioxide Anion Gap BUN Creatinine Estim Creat Clear Calc Estimated GFR Glucose Calcium Magnesium Total Bilirubin AST 33 ALT 17 Cancelled Alkaline Phosphatase 55 Cancelled Troponin I 0.319 H* D C-Reactive Protein Total Protein Cancelled Albumin Procalcitonin Nasal MRSA (PCR) Influenza A (RT-PCR) Influenza B (RT-PCR) RSV (RT-PCR) SARS-CoV-2 RNA (RT-PCR) 05/11/24 05/11/24 05/11/24 06:44 06:44 06:44 WBC RBC Hgb Hct MCV MCH MCHC RDW Plt Count MPV Immature Gran % (Auto) Neut % (Auto) Lymph % (Auto) Terrell % (Auto) Eos % (Auto) Baso % (Auto) Lymph # (Auto) Terrell # (Auto) Eos # (Auto) Baso # (Auto) Abs Immat Gran (auto) Absolute Neuts (auto) Absolute Nucleated RBC Nucleated RBC % % Immature Plt Fraction ESR PT INR APTT VBG pH VBG pCO2 VBG pO2 VBG HCO3 O2 Delivery Device O2 Liters/Min FiO2 Sodium Potassium Chloride Carbon Dioxide Anion Gap BUN Creatinine Estim Creat Clear Calc Estimated GFR Glucose 103 Calcium 8.4 Cancelled Magnesium Total Bilirubin 0.6 Cancelled AST Cancelled ALT Alkaline Phosphatase Troponin I C-Reactive Protein Total Protein Albumin Procalcitonin Nasal MRSA (PCR) Influenza A (RT-PCR) Influenza B (RT-PCR) RSV (RT-PCR) SARS-CoV-2 RNA (RT-PCR) 0205/11/24 05/11/24 06:44 06:44 06:44 WBC RBC Hgb Hct MCV MCH MCHC RDW Plt Count MPV Immature Gran % (Auto) Neut % (Auto) Lymph % (Auto) Terrell % (Auto) Eos % (Auto) Baso % (Auto) Lymph # (Auto) Terrell # (Auto) Eos # (Auto) Baso # (Auto) Abs Immat Gran (auto) Absolute Neuts (auto) Absolute Nucleated RBC Nucleated RBC % % Immature Plt Fraction ESR PT INR APTT VBG pH VBG pCO2 VBG pO2 VBG HCO3 O2 Delivery Device O2 Liters/Min FiO2 Sodium Potassium Chloride Carbon Dioxide Anion Gap BUN Creatinine 6.26 H Estim Creat Clear Calc 11 Cancelled Estimated GFR 9 L Cancelled Glucose Cancelled Calcium Magnesium Total Bilirubin AST ALT Alkaline Phosphatase Troponin I C-Reactive Protein Total Protein Albumin Procalcitonin Nasal MRSA (PCR) Influenza A (RT-PCR) Influenza B (RT-PCR) RSV (RT-PCR) SARS-CoV-2 RNA (RT-PCR) 05/11/24 05/11/24 05/11/24 06:44 06:44 06:44 WBC RBC Hgb Hct MCV MCH MCHC RDW Plt Count MPV Immature Gran % (Auto) Neut % (Auto) Lymph % (Auto) Terrell % (Auto) Eos % (Auto) Baso % (Auto) Lymph # (Auto) Terrell # (Auto) Eos # (Auto) Baso # (Auto) Abs Immat Gran (auto) Absolute Neuts (auto) Absolute Nucleated RBC Nucleated RBC % % Immature Plt Fraction ESR PT INR APTT VBG pH VBG pCO2 VBG pO2 VBG HCO3 O2 Delivery Device O2 Liters/Min FiO2 Sodium Potassium Chloride Carbon Dioxide 38 H Anion Gap 6 Cancelled BUN 22 H Cancelled Creatinine Cancelled Estim Creat Clear Calc Estimated GFR Glucose Calcium Magnesium Total Bilirubin AST ALT Alkaline Phosphatase Troponin I C-Reactive Protein Total Protein Albumin Procalcitonin Nasal MRSA (PCR) Influenza A (RT-PCR) Influenza B (RT-PCR) RSV (RT-PCR) SARS-CoV-2 RNA (RT-PCR) 05/11/24 05/11/24 05/11/24 06:44 06:44 06:44 WBC RBC Hgb Hct MCV MCH MCHC RDW Plt Count MPV Immature Gran % (Auto) Neut % (Auto) Lymph % (Auto) Terrell % (Auto) Eos % (Auto) Baso % (Auto) Lymph # (Auto) Terrell # (Auto) Eos # (Auto) Baso # (Auto) Abs Immat Gran (auto) Absolute Neuts (auto) Absolute Nucleated RBC Nucleated RBC % % Immature Plt Fraction ESR PT INR APTT VBG pH VBG pCO2 VBG pO2 VBG HCO3 O2 Delivery Device O2 Liters/Min FiO2 Sodium 135 L Potassium 3.1 L Cancelled Chloride 91 L Cancelled Carbon Dioxide Cancelled Anion Gap BUN Creatinine Estim Creat Clear Calc Estimated GFR Glucose Calcium Magnesium Total Bilirubin AST ALT Alkaline Phosphatase Troponin I C-Reactive Protein Total Protein Albumin Procalcitonin Nasal MRSA (PCR) Influenza A (RT-PCR) Influenza B (RT-PCR) RSV (RT-PCR) SARS-CoV-2 RNA (RT-PCR) 05/11/24 05/11/24 05/11/24 06:44 06:42 04:55 WBC 3.9 L RBC 2.71 L Hgb 8.8 L Hct 26.8 L MCV 98.9 MCH 32.5 MCHC 32.8 RDW 16.0 H Plt Count 87 L MPV 11.3 H Immature Gran % (Auto) 1.0 H Neut % (Auto) 84.6 H Lymph % (Auto) 8.2 L Terrell % (Auto) 5.9 Eos % (Auto) 0.0 Baso % (Auto) 0.3 Lymph # (Auto) 0.32 L Terrell # (Auto) 0.2 Eos # (Auto) 0.0 Baso # (Auto) 0.0 Abs Immat Gran (auto) 0.04 H Absolute Neuts (auto) 3.3 Absolute Nucleated RBC 0.020 H Nucleated RBC % 0.5 H % Immature Plt Fraction 3.3 ESR 77 H PT 13.9 INR 1.0 APTT 103.6 H VBG pH VBG pCO2 VBG pO2 VBG HCO3 O2 Delivery Device O2 Liters/Min FiO2 Sodium Cancelled Potassium Chloride Carbon Dioxide Anion Gap BUN Creatinine Estim Creat Clear Calc Estimated GFR Glucose Calcium Magnesium Total Bilirubin AST ALT Alkaline Phosphatase Troponin I C-Reactive Protein 6.1 H Total Protein Albumin Procalcitonin 2.1 Nasal MRSA (PCR) Not detected Influenza A (RT-PCR) Influenza B (RT-PCR) RSV (RT-PCR) SARS-CoV-2 RNA (RT-PCR) 05/11/24 05/10/24 05/10/24 01:09 21:28 20:34 WBC 4.6 4.6 RBC 3.06 L 3.32 L Hgb 9.9 L 10.8 L Hct 30.4 L 32.9 L MCV 99.3 99.1 MCH 32.4 32.5 MCHC 32.6 32.8 RDW 16.0 H 16.0 H Plt Count 105 L 105 L MPV 11.2 H 10.1 Immature Gran % (Auto) 0.4 0.9 H Neut % (Auto) 88.4 H 88.8 H Lymph % (Auto) 5.9 L 6.6 L Terrell % (Auto) 5.1 3.5 Eos % (Auto) 0.0 0.0 Baso % (Auto) 0.2 0.2 Lymph # (Auto) 0.27 L 0.30 L Terrell # (Auto) 0.2 0.2 Eos # (Auto) 0.0 0.0 Baso # (Auto) 0.0 0.0 Abs Immat Gran (auto) 0.02 0.04 H Absolute Neuts (auto) 4.0 4.1 Absolute Nucleated RBC 0.000 0.000 Nucleated RBC % 0.0 0.0 % Immature Plt Fraction 3.0 ESR PT Cancelled 12.6 INR Cancelled 0.9 APTT Cancelled 30.2 VBG pH 7.522 H* VBG pCO2 45.5 VBG pO2 < 27.0 L VBG HCO3 36.5 H O2 Delivery Device Room air O2 Liters/Min Not Reportable FiO2 21 Sodium 138 Potassium 3.5 Chloride 89 L Carbon Dioxide > 40 H Anion Gap BUN 19 D Creatinine 5.31 H Estim Creat Clear Calc 13 Estimated GFR 10 L Glucose 115 H Calcium 9.4 Magnesium 1.9 Total Bilirubin 0.8 AST 32 ALT 18 Alkaline Phosphatase 67 Troponin I 0.253 H* D 0.179 H* C-Reactive Protein Total Protein 7.0 Albumin 4.0 Procalcitonin Nasal MRSA (PCR) Influenza A (RT-PCR) Negative Influenza B (RT-PCR) Negative RSV (RT-PCR) Negative SARS-CoV-2 RNA (RT-PCR) Negative
--- NOTE | 2024-05-11 19:10 | PHAR ---
home medication: Xphozah 30 mg tablet, take one tablet by mouth twice daily with morning and evening meals, verified in pharmacy 05/11/24@1911 [place].
[2024-05-11 20:46] LABS: Glucose Point of Care 104 mg/dl (65-105)
[2024-05-11] MEDS: HEPARIN SOD/D5W 100 UNITS/ML 25,000 UNITS/250 ML BAG 12 UNITS IV CONT (21:58)
[2024-05-12] VITALS (32 sets, daily range): BP systolic 110–153; BP diastolic 51–71; PULSE 52–81; RESP 16–22; TEMP 36.8–37.9; O2SAT 65–100
[2024-05-12 01:24] LABS: Partial Thromboplastin Time > 200.0 Seconds (22.3-36.8)
[2024-05-12 04:50] LABS: Basophils Percent Auto 0.3 % (0.2-1.2); Eosinophils Percent Auto 0.3 % (0-4.4); Hemoglobin 9.1 g/dL (14.0-18.0); Immature Granulocyte Absolute 0.03 K/mm3 (0.00-0.031); Immature Granulocyte Percent A 0.8 % (0-0.5); Immature Platelet Fraction Pct 4.9 % (0.9-11.2); Lymphocytes Absolute Auto 0.86 K/mm3 (0.9-3.2); Lymphocytes Percent Auto 22.2 % (18.3-44.2); Mean Corpuscular HGB Conc 32.5 g/dl (32-36); Mean Corpuscular Hemoglobin 32.5 pg (26-34); Mean Platelet Volume 11.5 fl (7.4-10.4); Monocytes Absolute Auto 0.4 K/mm3 (0.1-0.6); Monocytes Percent Auto 10.3 % (2.6-8.5); Neutrophils Absolute Auto 2.6 K/mm3 (1.3-6.7); Neutrophils Percent Auto 66.1 % (45.5-73.1); Red Cell Distribution Width 15.8 % (11.5-14.5); White Blood Count 3.9 K/mm3 (4.5-10.0)
[2024-05-12 05:00] LABS: Alanine Aminotransferase 20 U/L (6-50); Albumin Level 3.1 g/dL (3.5-5.1); Alkaline Phosphatase 52 U/L (38-126); Anion Gap 8 mmol/L (4-12); Aspartate Amino Transferase 43 U/L (17-59); Bilirubin,Total 0.6 mg/dL (0.2-1.3); Blood Urea Nitrogen 32 mg/dL (9-20); Calcium 8.5 mg/dL (8.4-10.2); Carbon Dioxide 34 mmol/L (22-30); Chloride 91 mmol/L (98-107); Estimated CRCL calculation 8 ml/min; Estimated Glomerular Filt Rate 6; Glucose 134 mg/dL (65-110); Potassium 3.2 mmol/L (3.4-5.0); Sodium 133 mmol/L (137-145)
[2024-05-12 05:16] LABS: Anisocytosis 1+; Band Neutrophils Percent 0 % (0-6); Hypochromasia 1+; Platelet Count Result 87 k/mm3 (150-375); Platelet Estimate Adequate (Adequate); Schistocytes Rare
[2024-05-12 05:40] LABS: Hepatitis B Surface Antigen Negative (Negative)
[2024-05-12] MEDS: PIPERACILLIN/TAZ 2.25G/NS 50ML 2.25 GM/50 ML BAG IVPB ×3 (06:29→22:45)
[2024-05-12] MEDS: FUROSEMIDE 80 MG TABLET PO ×2 (06:30→17:22)
[2024-05-12 07:31] LABS: Hepatitis B Surface Anti Res Indeterminate
[2024-05-12 09:41] LABS: Magnesium 1.7 mg/dL (1.6-2.3)
--- NOTE | 2024-05-12 10:23 | P.PNNP_ITS ---
Progress Note: A&P Assessment and Plan (1) End stage renal disease: Code(s): N18.6 - End stage renal disease Status: Chronic Assessment and Plan: * hemodialysis is about to get started * his potassium is a little low so he is going to be done on a 4K bath to start off. * Volume status looks okay. (2) AMS (altered mental status): Qualifiers: Altered mental status type: unspecified Qualified Code(s): R41.82 - Altered mental status, unspecified Code(s): R41.82 - Altered mental status, unspecified Status: Acute Assessment and Plan: * transient * head CT scan negative * no focal deficits * He is back to baseline. (3) Bradycardia: Code(s): R00.1 - Bradycardia, unspecified Status: Acute Assessment and Plan: * Heart rate is still in the 50s in the 60s. * asymptomatic * Cardiology saw and recommend transfer he can get EP studies. * Echocardiogram showed hyperdynamic LV function. (4) Fever: Code(s): R50.9 - Fever, unspecified Status: Acute Assessment and Plan: * as noted earlier this AM * WBC normal * viral testing for influenza, RSV, and COVID negative * blood culture Still pending. * empirically on Zosyn * no other clinical signs of infection (5) Anemia: Code(s): D64.9 - Anemia, unspecified Status: Chronic Assessment and Plan: * due to ESRD * Epogen with HD today * follow trend of H/H (6) Hypertension: Qualifiers: Hypertension type: unspecified Qualified Code(s): I10 - Essential (primary) hypertension Code(s): I10 - Essential (primary) hypertension Status: Chronic Assessment and Plan: * systolic in the 110-130 range (7) Diabetes: Code(s): E11.9 - Type 2 diabetes mellitus without complications Status: Acute Assessment and Plan: * diet controlled * no currently requiring any medications * glycemic control per hospitalist Subjective Date/time seen: 05/12/24 10:23 Interval history: Oscar is feeling better. Mental status is improved. No shortness of breath. No cough. Does not make any urine. He is about to start dialysis Review of Systems Cardiovascular: Cardiovascular: Reports no additional cardiovascular complaints Respiratory: Respiratory: Reports no additional respiratory complaints Gastrointestinal: Gastrointestinal: Reports no additional gastrointestinal complaints Genitourinary: Genitourinary: Reports no additional male genitourinary complaints Exam Narrative: WDWN male in NAD skin no rash head ncat lungs clear cor reg no rub abd BS+ nontender and soft ext no edema. Objective Data Vital Signs Vital Signs: Vital Signs - 24 hr 05/11/24 11:58 05/11/24 12:00 05/11/24 12:00 Temperature 99.8 F H Pulse Rate 64 70 Respiratory Rate 18 Blood Pressure 175/61 H Pulse Oximetry 98 Oxygen Delivery Room Air 05/11/24 14:00 05/11/24 16:00 05/11/24 16:00 Temperature 98.8 F Pulse Rate 80 91 Respiratory Rate 16 Blood Pressure 112/53 L Pulse Oximetry 99 Oxygen Delivery Room Air 05/11/24 16:00 05/11/24 18:00 05/11/24 18:35 Temperature 99.4 F Pulse Rate 63 68 60 Respiratory Rate 18 Blood Pressure 107/46 L Pulse Oximetry 97 Oxygen Delivery 05/11/24 20:00 05/11/24 20:00 05/11/24 22:00 Temperature Pulse Rate 62 61 Respiratory Rate Blood Pressure Pulse Oximetry Oxygen Delivery Room Air 05/12/24 00:00 05/12/24 00:00 05/12/24 00:00 Temperature 100.2 F H Pulse Rate 60 54 L Respiratory Rate 22 H Blood Pressure 127/58 L Pulse Oximetry 100 Oxygen Delivery Room Air 05/12/24 02:00 05/12/24 04:00 05/12/24 04:00 Temperature 100.1 F H Pulse Rate 60 62 Respiratory Rate 20 Blood Pressure 140/55 L Pulse Oximetry 98 Oxygen Delivery Room Air 05/12/24 04:00 05/12/24 06:00 05/12/24 07:31 Temperature 98.4 F Pulse Rate 56 L 58 L 67 Respiratory Rate 20 Blood Pressure 119/55 L Pulse Oximetry 96 Oxygen Delivery 05/12/24 08:45 05/12/24 09:21 05/12/24 09:30 Temperature Pulse Rate 70 65 Respiratory Rate Blood Pressure 122/63 119/60 Pulse Oximetry 94 Oxygen Delivery Room Air 05/12/24 09:45 05/12/24 10:00 05/12/24 10:15 Temperature Pulse Rate 68 68 65 Respiratory Rate Blood Pressure 124/63 130/66 122/71 Pulse Oximetry Oxygen Delivery Intake/Output Intake/Output: Intake & Output 05/09/24 05/10/24 05/11/24 05/12/24 23:59 23:59 23:59 23:59 Intake Total 740.0 581.6 Output Total 0 Balance 740.0 581.6 Meds/Results Medications: Active Medications Generic Name Dose Route Start Last Admin Trade Name Freq PRN Reason Stop Dose Admin Acetaminophen 650 mg 05/10/24 23:40 05/11/24 04:07 Acetaminophen 325 Mg Tablet PO 650 mg Q4H PRN Administration Mild Pain (1-3) or Fever Albuterol/Ipratropium 3 ml 05/11/24 03:38 Ipratropium 0.5 Mg/Albuterol Sulfate 2.5 Mg Ampul.Neb 3 Ml INHALATION Q4HRT PRN shortness of breath/Wheezing Allopurinol 100 mg 05/11/24 10:25 05/11/24 11:57 Allopurinol 100 Mg Tablet PO 100 mg DAILY SHANE Administration Aspirin 81 mg 05/11/24 10:05/11/24 11:58 Aspirin 81 Mg Enteric Tablet PO 81 mg DAILY SHANE Administration Atorvastatin Calcium 80 mg 05/11/24 10:25 05/11/24 11:58 Atorvastatin 40 Mg Tablet PO 80 mg DAILY SHANE Administration Benzonatate 200 mg 05/11/24 10:08 Benzonatate 100 Mg Capsule PO TID PRN cough Docusate Sodium 100 mg 05/11/24 10:05/11/24 17:55 Docusate Sodium 100 Mg Capsule PO Not Given BID SHANE Epoetin Riccardo-epbx 10,000 units 05/12/24 19:20 Epoetin Riccardo-Epbx 10,000 Units/Ml Vial IV PUSH 05/12/24 19:21 ONCE ONE Ergocalciferol 50,000 units 06/10/24 09:00 Ergocalciferol 50,000 Units Capsule PO MONTHLY SHANE Furosemide 80 mg 05/11/24 18:00 05/12/24 06:30 Furosemide 80 Mg Tablet PO 80 mg Q12H SHANE Administration Guaifenesin/Dextromethorphan 10 ml 05/11/24 03:38 Guaifenesin/Dextromethorphan 10 Ml Udc PO Q4H PRN Cough Heparin Sodium (Porcine) 7,000 units 05/10/24 22:56 Heparin Sodium 5,000 Units/Ml Vial IV PUSH PRN PRN aPTT less than 55 seconds Heparin Sodium (Porcine) 3,500 units 05/10/24 22:56 Heparin Sodium 5,000 Units/Ml Vial IV PUSH PRN PRN aPTT 55 - 70 seconds Heparin Sodium/Dextrose 25,000 units in 250 mls @ 9 mls/hr 05/10/24 23:00 05/12/24 03:55 Heparin Sodium/D5w 100 Units/Ml IV CONT 900 units/hr .Q24H SHANE 9 mls/hr Titration Protocol 900 UNITS/HR Piperacillin Sod/Tazobactam Sod 2.25 gm in 50 mls @ 100 mls/hr 05/11/24 06:35 05/12/24 06:29 Zosyn 2.25 Gm/Ns 50 Ml IVPB 100 mls/hr Q8HR SHANE Administration Albumin Human 50 mls @ 999 mls/hr 05/12/24 06:17 Albutein IVPB 06/11/24 06:16 Q10M PRN HYPOTENSION Irbesartan 300 mg 05/11/24 10:25 05/11/24 11:57 Irbesartan 150 Mg Tablet PO 300 mg DAILY SHANE Administration Melatonin 5 mg 05/11/24 03:38 Melatonin 5 Mg Tablet PO HS PRN Insomnia Miconazole Nitrate 1 applic 05/11/24 10:30 05/11/24 21:47 Miconazole Nitrate 2% Cream 30 Gm Tube TOPICAL 1 applic Q12HR SHANE Administration Mupirocin 1 applic 05/11/24 10:25 05/11/24 21:47 Mupirocin 2% Oint 22 Gm Tube TOPICAL 1 applic Q12HR SHANE Administration Nifedipine 60 mg 05/11/24 10:10 05/11/24 21:46 Nifedipine 30 Mg Tab.Er.24 PO 60 mg Q12HR SHANE Administration Home Med (Tenapanor 30 mg 05/11/24 19:15 05/11/24 19:41 [Xphozah] 30 Mg PO 06/10/24 19:14 Not Given Tablet) BIDWM [facility] Non-Formulary Medication 1 each 05/11/24 10:26 Nonformulary Nutritional Supplement XX 05/12/24 10:25 PRN PRN PROTOCOL Ondansetron HCl 4 mg 05/10/24 23:40 Ondansetron Inj 4 Mg/2 Ml Vial IV PUSH Q4H PRN Nausea Polyethylene Glycol 17 gm 05/11/24 03:38 Polyethylene Glycol 3350 17 Gm Powd.Pack PO QAM PRN Constipation Prochlorperazine Edisylate 10 mg 05/11/24 03:38 Prochlorperazine Edisylate 10 Mg/2 Ml Vial IV PUSH Q6H PRN Nausea And Vomiting Sevelamer Carbonate 800 mg 05/11/24 10:25 05/11/24 17:54 Sevelamer Carbonate 800 Mg Tablet PO 06/10/24 10:24 800 mg TID SHANE Administration Triamcinolone Acetonide 1 applic 05/11/24 10:30 05/11/24 21:47 Triamcinolone Acet 0.5% Cream 15 Gm Tube TOPICAL 1 applic Q12HR SHANE Administration Vitamin B Complex/Folic Acid 1 cap 05/11/24 10:25 05/11/24 11:59 Vitamin B Cmplx/Vit C/Folic Ac 1 Capsule PO 1 cap DAILY SHANE Administration Radiology Results: ITS Impressions Head CT 05/10/24 19:17 IMPRESSION: No acute intracranial findings. Chest X-Ray 05/11/24 18:36 IMPRESSION: Left basal atelectasis versus pneumonia. Labs Labs: Laboratory Results - last 24 hr 05/11/24 05/11/24 05/11/24 06:42 16:20 20:10 WBC RBC Hgb Hct MCV MCH MCHC RDW Plt Count MPV Immature Gran % (Auto) Neut % (Auto) Lymph % (Auto) [place] % (Auto) Eos % (Auto) Baso % (Auto) Lymph # (Auto) [place] # (Auto) Eos # (Auto) Baso # (Auto) Abs Immat Gran (auto) Absolute Neuts (auto) Absolute Nucleated RBC Band Neutrophils % Nucleated RBC % Platelet Estimate % Immature Plt Fraction Hypochromasia Anisocytosis Schistocytes APTT 157.9 H Sodium Potassium Chloride Carbon Dioxide Anion Gap BUN Creatinine Estim Creat Clear Calc Estimated GFR Glucose POC Capillary Glucose 104 Calcium Magnesium Total Bilirubin AST ALT Alkaline Phosphatase Total Protein Albumin Procalcitonin 2.1 Hep Bs Antigen Hep Bs Antibody 05/12/24 05/12/24 00:53 04:30 WBC 3.9 L RBC 2.80 L Hgb 9.1 L Hct 28.0 L MCV 100.0 MCH 32.5 MCHC 32.5 RDW 15.8 H Plt Count 87 L MPV 11.5 H Immature Gran % (Auto) 0.8 H Neut % (Auto) 66.1 Lymph % (Auto) 22.2 [place] % (Auto) 10.3 H Eos % (Auto) 0.3 Baso % (Auto) 0.3 Lymph # (Auto) 0.86 L [place] # (Auto) 0.4 Eos # (Auto) 0.0 Baso # (Auto) 0.0 Abs Immat Gran (auto) 0.03 Absolute Neuts (auto) 2.6 Absolute Nucleated RBC 0.000 Band Neutrophils % 0 Nucleated RBC % 0.0 Platelet Estimate Adequate % Immature Plt Fraction 4.9 Hypochromasia 1+ Anisocytosis 1+ Schistocytes Rare APTT > 200.0 H* Sodium 133 L Potassium 3.2 L Chloride 91 L Carbon Dioxide 34 H Anion Gap 8 BUN 32 H D Creatinine 8.36 H Estim Creat Clear Calc 8 Estimated GFR 6 L Glucose 134 H POC Capillary Glucose Calcium 8.5 Magnesium 1.7 Total Bilirubin 0.6 AST 43 ALT 20 Alkaline Phosphatase 52 Total Protein 6.0 L Albumin 3.1 L Procalcitonin Hep Bs Antigen Negative Hep Bs Antibody Indeterminate
[2024-05-12 10:58] LABS: Partial Thromboplastin Time 95.8 Seconds (22.3-36.8)
[2024-05-12] MEDS: EPOETIN ALFA-EPBX 10,000 UNITS/ML VIAL 10000 UNITS IV PUSH (10:58)
--- NOTE | 2024-05-12 12:37 | PCPTNOTE ---
Patient out of the room getting HD, Physical therapy will attempt to see the patient tomorrow as time allows.
--- NOTE | 2024-05-12 13:39 | PCOTNOTE ---
Attempted OT evaluation; pt. out of room for HD. Will continue to follow.
[2024-05-12] MEDS: VITAMIN B CMPLX/VIT C/FOLIC AC 1 CAPSULE 1 CAP PO (13:53)
[2024-05-12] MEDS: SEVELAMER CARBONATE 800 MG TABLET PO ×2 (13:53→17:22)
[2024-05-12] MEDS: allopurinoL 100 MG TABLET PO (13:53)
[2024-05-12] MEDS: NIFEdipine 30 MG TAB.ER.24 60 MG PO ×2 (13:53→20:04)
[2024-05-12] MEDS: ASPIRIN 81 MG ENTERIC TABLET PO (13:54)
[2024-05-12] MEDS: POTASSIUM CHLORIDE 20 MEQ PACKET (FOR LIQUID) 40 MEQ PO (13:54)
[2024-05-12] MEDS: IRBESARTAN 150 MG TABLET 300 MG PO (13:54)
[2024-05-12] MEDS: MICONAZOLE NITRATE 2% CREAM 30 GM TUBE 1 APPLIC TOPICAL ×2 (13:54→20:04)
[2024-05-12] MEDS: ATORVASTATIN 40 MG TABLET 80 MG PO (13:54)
[2024-05-12] MEDS: MUPIROCIN 2% OINT 22 GM TUBE 1 APPLIC TOPICAL ×2 (13:54→20:04)
[2024-05-12] MEDS: TRIAMCINOLONE ACET 0.5% CREAM 15 GM TUBE 1 APPLIC TOPICAL ×2 (13:55→20:04)
[2024-05-12] MEDS: TENAPANOR 30 MG 30 EACH PO (13:59)
--- NOTE | 2024-05-12 17:03 | P.PNCA_ITS ---
Progress Note: A&P Assessment and Plan (1) Bradycardia: Code(s): R00.1 - Bradycardia, unspecified Status: Acute (2) Elevated troponin: Code(s): R79.89 - Other specified abnormal findings of blood chemistry Status: Acute (3) Hypertension: Qualifiers: Hypertension type: unspecified Qualified Code(s): I10 - Essential (primary) hypertension Code(s): I10 - Essential (primary) hypertension Status: Chronic (4) HLD (hyperlipidemia): Code(s): E78.5 - Hyperlipidemia, unspecified Status: Acute Plan Assessment: 1. Bradycardia-patient's EKGs show sinus rhythm with second-degree Mobitz type 1 block and 2:1 block, PVCs, incomplete left bundle branch block with QRS more than 120 milliseconds. Both Mobitz type 1 and type 2 can cause 2 is to 1 block but patient has prolonged QRS duration>120 millisecond which makes second-degree Mobitz type 2 block possible. Patient continues to be bradycardic but does not have any chest pain, confusion, dizziness, lightheadedness, presyncope, syncope, diaphoresis, shortness breath at this time. We do not know if patient's o riginal symptoms of confusion were secondary to bradycardia since there was no monitor at the time 2. Elevated troponin-could be secondary to bradycardia with is elevated due to end-stage renal disease; patient does not have any chest pain 3. Hypertension 4. Hyperlipidemia 5. End-stage renal disease on hemodialysis 6. Chronic anemia secondary to end-stage renal disease 7. Hypokalemia with potassium 3.1 8. Thrombocytopenia with platelet counts of 87,000 Plan: Transferred to [facility] has been initiated for EP evaluation of need for pacemaker. Patient awaiting transfer Monitor on telemetry Avoid any AV alba blocking agent TTE showed normal LV ejection fraction Check and replace electrolytes to keep potassium greater than 4 and magnesium greater than 2 Continue aspirin 81 mg daily Continue statin Continue Lasix Continue irbesartan, nifedipine Management of other medical problems per primary team Subjective Date/time seen: 05/12/24 17:03 Interval history: Reason for encounter: Bradycardia Relevant history: 78-year-old male with history of hyperlipidemia, end-stage renal disease on dialysis, anxiety, depression, gout presents with chief complaints of confusion and fatigue after hemodialysis. No chest pain, shortness of breath, palpitations, presyncope, syncope, leg swelling, recent weight gain, palpitations, cough, nausea, emesis, abdominal pain, headache, focal weakness. He lives by himself, is sedentary and wheelchair-bound for most of the day. He was noted to have bradycardia and Cardiology was consulted for further recommendations. Pertinent workup as below Hemoglobin: 8.8 Platelets: 59930 Potassium: 3.1 Creatinine: 6.26 Troponin: 0.17, 0.253, 0.319 EKG: Sinus bradycardia with second-degree type 1 block (Wenckebach), PVCs, incomplete left bundle branch block, possible inferior infarct age indetermi erika, possible anterior infarct age indeterminate EKG: Sinus bradycardia with 2:1 block, PVCs, incomplete left bundle branch block, possible inferior infarct age indeterminate, possible anterior infarct age indeterminate Head CT: No acute pathology Interval history: He is more awake today. Patient denies any chest pain, lightheadedness, dizziness, palpitations, shortness of breath, nausea, emesis, abdominal pain, headache, focal weakness. No sinus rhythm with rates in the 50s to 70s. Review of Systems Review of Systems: Complete review of systems was performed and negative other than those mentioned in HPI Objective Data Vital Signs Vital Signs: Vital Signs - 24 hr 05/11/24 18:00 05/11/24 18:35 05/11/24 20:00 Temperature 37.4 C Pulse Rate 68 60 Respiratory Rate 18 Blood Pressure 107/46 L Pulse Oximetry 97 Oxygen Delivery Room Air 05/11/24 20:00 05/11/24 22:00 05/12/24 00:00 Temperature 37.9 C H Pulse Rate 62 61 60 Respiratory Rate 22 H Blood Pressure 127/58 L Pulse Oximetry 100 Oxygen Delivery 05/12/24 00:00 05/12/24 00:00 05/12/24 02:00 Temperature Pulse Rate 54 L 60 Respiratory Rate Blood Pressure Pulse Oximetry Oxygen Delivery Room Air 05/12/24 04:00 05/12/24 04:00 05/12/24 04:00 Temperature 37.8 C H Pulse Rate 62 56 L Respiratory Rate 20 Blood Pressure 140/55 L Pulse Oximetry 98 Oxygen Delivery Room Air 05/12/24 06:00 05/12/24 07:31 05/12/24 08:00 Temperature 36.9 C Pulse Rate 58 L 67 Respiratory Rate 20 Blood Pressure 119/55 L Pulse Oximetry 96 Oxygen Delivery Room Air 05/12/24 08:00 05/12/24 08:45 05/12/24 09:05 Temperature 37.0 C Pulse Rate 81 72 Respiratory Rate 16 Blood Pressure 110/60 Pulse Oximetry 94 95 Oxygen Delivery Room Air 05/12/24 09:21 05/12/24 09:30 05/12/24 09:45 Temperature Pulse Rate 70 65 68 Respiratory Rate Blood Pressure 122/63 119/60 124/63 Pulse Oximetry Oxygen Delivery 05/12/24 10:00 05/12/24 10:00 05/12/24 10:15 Temperature Pulse Rate 68 58 L 65 Respiratory Rate Blood Pressure 130/66 122/71 Pulse Oximetry Oxygen Delivery 05/12/24 10:30 05/12/24 10:45 05/12/24 11:00 Temperature Pulse Rate 69 68 67 Respiratory Rate Blood Pressure 128/64 134/67 130/65 Pulse Oximetry Oxygen Delivery 05/12/24 11:15 05/12/24 11:30 05/12/24 11:45 Temperature Pulse Rate 67 65 66 Respiratory Rate Blood Pressure 138/65 128/67 140/66 Pulse Oximetry Oxygen Delivery 05/12/24 12:00 05/12/24 12:00 05/12/24 12:15 Temperature Pulse Rate 65 65 66 Respiratory Rate Blood Pressure 125/64 152/65 H Pulse Oximetry Oxygen Delivery 05/12/24 12:30 05/12/24 12:45 05/12/24 12:55 Temperature Pulse Rate 67 52 L 61 Respiratory Rate Blood Pressure 144/66 H 143/62 H 153/69 H Pulse Oximetry Oxygen Delivery 05/12/24 13:20 05/12/24 14:00 05/12/24 14:09 Temperature Pulse Rate 75 77 Respiratory Rate 16 Blood Pressure 152/67 H Pulse Oximetry 65 L Oxygen Delivery Room Air 05/12/24 15:46 05/12/24 16:00 Temperature 36.8 C Pulse Rate 72 Respiratory Rate 20 Blood Pressure 124/51 L Pulse Oximetry 99 Oxygen Delivery Room Air Intake/Output Intake/Output: Intake & Output 05/09/24 05/10/24 05/11/24 05/12/24 23:59 23:59 23:59 23:59 Intake Total 740.0 631.6 Output Total 0 0 Balance 740.0 631.6 Meds/Results Medications: Active Medications Generic Name Dose Route Start Last Admin Trade Name Freq PRN Reason Stop Dose Admin Acetaminophen 650 mg 05/10/24 23:40 05/11/24 04:07 Acetaminophen 325 Mg Tablet PO 650 mg Q4H PRN Administration Mild Pain (1-3) or Fever Albuterol/Ipratropium 3 ml 05/11/24 03:38 Ipratropium 0.5 Mg/Albuterol Sulfate 2.5 Mg Ampul.Neb 3 Ml INHALATION Q4HRT PRN shortness of breath/Wheezing Allopurinol 100 mg 05/11/24 10:25 05/12/24 13:53 Allopurinol 100 Mg Tablet PO 100 mg DAILY SHANE Administration Aspirin 81 mg 05/11/24 10:05/12/24 13:54 Aspirin 81 Mg Enteric Tablet PO 81 mg DAILY SHANE Administration Atorvastatin Calcium 80 mg 05/11/24 10:25 05/12/24 13:54 Atorvastatin 40 Mg Tablet PO 80 mg DAILY SHANE Administration Benzonatate 200 mg 05/11/24 10:08 Benzonatate 100 Mg Capsule PO TID PRN cough Docusate Sodium 100 mg 05/11/24 10:25 05/12/24 13:54 Docusate Sodium 100 Mg Capsule PO Not Given BID SHANE Epoetin Riccardo-epbx 10,000 units 05/12/24 19:20 05/12/24 10:58 Epoetin Riccardo-Epbx 10,000 Units/Ml Vial IV PUSH 05/12/24 19:21 10,000 units ONCE ONE Administration Ergocalciferol 50,000 units 06/10/24 09:00 Ergocalciferol 50,000 Units Capsule PO MONTHLY SHANE Furosemide 80 mg 05/11/24 18:00 05/12/24 06:30 Furosemide 80 Mg Tablet PO 80 mg Q12H SHANE Administration Guaifenesin/Dextromethorphan 10 ml 05/11/24 03:38 Guaifenesin/Dextromethorphan 10 Ml Udc PO Q4H PRN Cough Heparin Sodium (Porcine) 7,000 units 05/10/24 22:56 Heparin Sodium 5,000 Units/Ml Vial IV PUSH PRN PRN aPTT less than 55 seconds Heparin Sodium (Porcine) 3,500 units 05/10/24 22:56 Heparin Sodium 5,000 Units/Ml Vial IV PUSH PRN PRN aPTT 55 - 70 seconds Heparin Sodium/Dextrose 25,000 units in 250 mls @ 9 mls/hr 05/10/24 23:00 05/12/24 03:55 Heparin Sodium/D5w 100 Units/Ml IV CONT 900 units/hr .Q24H SHANE 9 mls/hr Titration Protocol 900 UNITS/HR Piperacillin Sod/Tazobactam Sod 2.25 gm in 50 mls @ 100 mls/hr 05/11/24 06:35 05/12/24 13:52 Zosyn 2.25 Gm/Ns 50 Ml IVPB 100 mls/hr Q8HR SHANE Administration Albumin Human 50 mls @ 999 mls/hr 05/12/24 06:17 Albutein IVPB 06/11/24 06:16 Q10M PRN HYPOTENSION Irbesartan 300 mg 05/11/24 10:25 05/12/24 13:54 Irbesartan 150 Mg Tablet PO 300 mg DAILY SHANE Administration Melatonin 5 mg 05/11/24 03:38 Melatonin 5 Mg Tablet PO HS PRN Insomnia Miconazole Nitrate 1 applic 05/11/24 10:30 05/12/24 13:54 Miconazole Nitrate 2% Cream 30 Gm Tube TOPICAL 1 applic Q12HR SHANE Administration Mupirocin 1 applic 05/11/24 10:25 05/12/24 13:54 Mupirocin 2% Oint 22 Gm Tube TOPICAL 1 applic Q12HR SHANE Administration Nifedipine 60 mg 05/11/24 10:10 05/12/24 13:53 Nifedipine 30 Mg Tab.Er.24 PO 60 mg Q12HR SHANE Administration Home Med (Tenapanor 30 mg 05/11/24 19:15 05/12/24 13:59 [Xphozah] 30 Mg PO 06/10/24 19:14 30 mg Tablet) BIDWM SHANE Administration Ondansetron HCl 4 mg 05/10/24 23:40 Ondansetron Inj 4 Mg/2 Ml Vial IV PUSH Q4H PRN Nausea Polyethylene Glycol 17 gm 05/11/24 03:38 Polyethylene Glycol 3350 17 Gm Powd.Pack PO QAM PRN Constipation Prochlorperazine Edisylate 10 mg 05/11/24 03:38 Prochlorperazine Edisylate 10 Mg/2 Ml Vial IV PUSH Q6H PRN Nausea And Vomiting Sevelamer Carbonate 800 mg 05/11/24 10:25 05/12/24 14:04 Sevelamer Carbonate 800 Mg Tablet PO 06/10/24 10:24 Not Given TID SHANE Triamcinolone Acetonide 1 applic 05/11/24 10:30 05/12/24 13:55 Triamcinolone Acet 0.5% Cream 15 Gm Tube TOPICAL 1 applic Q12HR SHANE Administration Vitamin B Complex/Folic Acid 1 cap 05/11/24 10:25 05/12/24 13:53 Vitamin B Cmplx/Vit C/Folic Ac 1 Capsule PO 1 cap DAILY SHANE Administration Radiology Results: ITS Impressions Head CT 05/10/24 19:17 IMPRESSION: No acute intracranial findings. Chest X-Ray 05/11/24 18:36 IMPRESSION: Left basal atelectasis versus pneumonia. Labs Labs: Laboratory Results - last 24 hr 05/11/24 05/12/24 05/12/24 20:10 00:53 04:30 WBC 3.9 L RBC 2.80 L Hgb 9.1 L Hct 28.0 L MCV 100.0 MCH 32.5 MCHC 32.5 RDW 15.8 H Plt Count 87 L MPV 11.5 H Immature Gran % (Auto) 0.8 H Neut % (Auto) 66.1 Lymph % (Auto) 22.2 [place] % (Auto) 10.3 H Eos % (Auto) 0.3 Baso % (Auto) 0.3 Lymph # (Auto) 0.86 L [place] # (Auto) 0.4 Eos # (Auto) 0.0 Baso # (Auto) 0.0 Abs Immat Gran (auto) 0.03 Absolute Neuts (auto) 2.6 Absolute Nucleated RBC 0.000 Band Neutrophils % 0 Nucleated RBC % 0.0 Platelet Estimate Adequate % Immature Plt Fraction 4.9 Hypochromasia 1+ Anisocytosis 1+ Schistocytes Rare APTT > 200.0 H* Sodium 133 L Potassium 3.2 L Chloride 91 L Carbon Dioxide 34 H Anion Gap 8 BUN 32 H D Creatinine 8.36 H Estim Creat Clear Calc 8 Estimated GFR 6 L Glucose 134 H POC Capillary Glucose 104 Calcium 8.5 Magnesium 1.7 Total Bilirubin 0.6 AST 43 ALT 20 Alkaline Phosphatase 52 Total Protein 6.0 L Albumin 3.1 L Hep Bs Antigen Negative Hep Bs Antibody Indeterminate 05/12/24 10:06 WBC RBC Hgb Hct MCV MCH MCHC RDW Plt Count MPV Immature Gran % (Auto) Neut % (Auto) Lymph % (Auto) [place] % (Auto) Eos % (Auto) Baso % (Auto) Lymph # (Auto) [place] # (Auto) Eos # (Auto) Baso # (Auto) Abs Immat Gran (auto) Absolute Neuts (auto) Absolute Nucleated RBC Band Neutrophils % Nucleated RBC % Platelet Estimate % Immature Plt Fraction Hypochromasia Anisocytosis Schistocytes APTT 95.8 H Sodium Potassium Chloride Carbon Dioxide Anion Gap BUN Creatinine Estim Creat Clear Calc Estimated GFR Glucose POC Capillary Glucose Calcium Magnesium Total Bilirubin AST ALT Alkaline Phosphatase Total Protein Albumin Hep Bs Antigen Hep Bs Antibody
--- NOTE | 2024-05-12 17:09 | PM.IMPN ---
Progress Note: A&P Assessment and Plan (1) Acute metabolic encephalopathy: Code(s): G93.41 - Metabolic encephalopathy Status: Acute (2) Fever of unknown origin (FUO): Code(s): R50.9 - Fever, unspecified Status: Acute (3) New onset a-fib: Code(s): I48.91 - Unspecified atrial fibrillation Status: Acute (4) End stage chronic kidney disease: Code(s): N18.6 - End stage renal disease Status: Acute Plan Acute and principal conditions 1. Disquilebrium syndrome. improved 2. Elevated troponin. 2. FUO Rx: Blood culture; anuric (no urine samples) Zosyn; Cardiology consulted; on Heparin gtt CRP, ESR Chronic and stable 1. ESRD on HD-TTS 2. Obesity. BMI 300 3. Hypertension. 4. Dyslipidemia. 5. Gout. Miscellaneous care. 1. Code status. Full 2. VTE prophylaxis. SCDs; Heparin gtt 3. Nutrition. Renal diet patient still waiting for the bed, today skin care instructor discuss with patient family and recommended to transfer the hosptal for EP evaluation and further recommendation to follow, it is high risk to take the patient home, family has agreed to keep patient in the hospital until transfer, Patient was seen by the binder layer and patient had a dialysis, there were no events and patient is clinically stable. Subjective Date/time seen: 05/12/24 17:09 Interval history: Chief Complaint: 1.Confusion. Post-HD 2. Fatigue H&P-Narrative: Oscar Barker is an 78 yo M with a Mhx significant for gout, dyslipidemia, Hypertension, ESRD on HD-TTS, After undergoing his routine HD session hours [employer], he developed an altered mental status; it was aggravated by verbal stimuli; no known alleviating factors, associated with a confused mentation and fever. He did not have any episodes of chest pain, headaches, vomiting flank pain, dysuria, skin/joint changes, cough or falls. He resides alone, does not smoke/chew tobacco, drink alcohol or consume recreational/illicit drugs; he is sedentary and is wheelchair bound for most parts of his day. patient with elevated tropes was seen by the skin care instructor no ischemic work up was recommended however patient bradycardia with Mobitz type 1 and type 2 concerning possible heart block and recommending to transfer the patient to [facility] for EP consult. did call the transfer line patient is accepted by the hospital and waiting for a bed. patient still waiting for the bed, today skin care instructor discuss with patient family and recommended to transfer the hosptal for EP evaluation and further recommendation to follow, it is high risk to take the patient home, family has agreed to keep patient in the hospital until transfer, Patient was seen by the binder layer and patient had a dialysis, there were no events and patient is clinically stable. Review of Systems Review of Systems: Complete review of systems was performed and negative other than those mentioned in HPI Exam Narrative: Patient is comfortable, NAD HEENT: eyes are clear and none icteric LUNGS:CTA HEART: RR S1S2 ABD: BS+, Soft and nontender Lower extremities: no edema SKIN: nonjaundiced Neuro: grossly intact. Objective Data Vital Signs Vital Signs: Vital Signs - 24 hr 05/11/24 18:00 05/11/24 18:35 05/11/24 20:00 Temperature 37.4 C Pulse Rate 68 60 Respiratory Rate 18 Blood Pressure 107/46 L Pulse Oximetry 97 Oxygen Delivery Room Air 05/11/24 20:00 05/11/24 22:00 05/12/24 00:00 Temperature 37.9 C H Pulse Rate 62 61 60 Respiratory Rate 22 H Blood Pressure 127/58 L Pulse Oximetry 100 Oxygen Delivery 05/12/24 00:00 05/12/24 00:00 05/12/24 02:00 Temperature Pulse Rate 54 L 60 Respiratory Rate Blood Pressure Pulse Oximetry Oxygen Delivery Room Air 05/12/24 04:00 05/12/24 04:00 05/12/24 04:00 Temperature 37.8 C H Pulse Rate 62 56 L Respiratory Rate 20 Blood Pressure 140/55 L Pulse Oximetry 98 Oxygen Delivery Room Air 05/12/24 06:00 05/12/24 07:31 05/12/24 08:00 Temperature 36.9 C Pulse Rate 58 L 67 Respiratory Rate 20 Blood Pressure 119/55 L Pulse Oximetry 96 Oxygen Delivery Room Air 05/12/24 08:00 05/12/24 08:45 05/12/24 09:05 Temperature 37.0 C Pulse Rate 81 72 Respiratory Rate 16 Blood Pressure 110/60 Pulse Oximetry 94 95 Oxygen Delivery Room Air 05/12/24 09:21 05/12/24 09:30 05/12/24 09:45 Temperature Pulse Rate 70 65 68 Respiratory Rate Blood Pressure 122/63 119/60 124/63 Pulse Oximetry Oxygen Delivery 05/12/24 10:00 05/12/24 10:00 05/12/24 10:15 Temperature Pulse Rate 68 58 L 65 Respiratory Rate Blood Pressure 130/66 122/71 Pulse Oximetry Oxygen Delivery 05/12/24 10:30 05/12/24 10:45 05/12/24 11:00 Temperature Pulse Rate 69 68 67 Respiratory Rate Blood Pressure 128/64 134/67 130/65 Pulse Oximetry Oxygen Delivery 05/12/24 11:15 05/12/24 11:30 05/12/24 11:45 Temperature Pulse Rate 67 65 66 Respiratory Rate Blood Pressure 138/65 128/67 140/66 Pulse Oximetry Oxygen Delivery 05/12/24 12:00 05/12/24 12:00 05/12/24 12:15 Temperature Pulse Rate 65 65 66 Respiratory Rate Blood Pressure 125/64 152/65 H Pulse Oximetry Oxygen Delivery 05/12/24 12:30 05/12/24 12:45 05/12/24 12:55 Temperature Pulse Rate 67 52 L 61 Respiratory Rate Blood Pressure 144/66 H 143/62 H 153/69 H Pulse Oximetry Oxygen Delivery 05/12/24 13:20 05/12/24 14:00 05/12/24 14:09 Temperature Pulse Rate 75 77 Respiratory Rate 16 Blood Pressure 152/67 H Pulse Oximetry 65 L Oxygen Delivery Room Air 05/12/24 15:46 05/12/24 16:00 Temperature 36.8 C Pulse Rate 72 Respiratory Rate 20 Blood Pressure 124/51 L Pulse Oximetry 99 Oxygen Delivery Room Air Intake/Output Intake/Output: Intake & Output 05/09/24 05/10/24 05/11/24 05/12/24 23:59 23:59 23:59 23:59 Intake Total 740.0 631.6 Output Total 0 0 Balance 740.0 631.6 Meds/Results Medications: Active Medications Generic Name Dose Route Start Last Admin Trade Name Freq PRN Reason Stop Dose Admin Acetaminophen 650 mg 05/10/24 23:40 05/11/24 04:07 Acetaminophen 325 Mg Tablet PO 650 mg Q4H PRN Administration Mild Pain (1-3) or Fever Albuterol/Ipratropium 3 ml 05/11/24 03:38 Ipratropium 0.5 Mg/Albuterol Sulfate 2.5 Mg Ampul.Neb 3 Ml INHALATION Q4HRT PRN shortness of breath/Wheezing Allopurinol 100 mg 05/11/24 10:25 05/12/24 13:53 Allopurinol 100 Mg Tablet PO 100 mg DAILY SHANE Administration Aspirin 81 mg 05/11/24 10:25 05/12/24 13:54 Aspirin 81 Mg Enteric Tablet PO 81 mg DAILY SHANE Administration Atorvastatin Calcium 80 mg 05/11/24 10:25 05/12/24 13:54 Atorvastatin 40 Mg Tablet PO 80 mg DAILY SHANE Administration Benzonatate 200 mg 05/11/24 10:08 Benzonatate 100 Mg Capsule PO TID PRN cough Docusate Sodium 100 mg 05/11/24 10:05/12/24 13:54 Docusate Sodium 100 Mg Capsule PO Not Given BID SHANE Epoetin Riccardo-epbx 10,000 units 05/12/24 19:20 05/12/24 10:58 Epoetin Riccardo-Epbx 10,000 Units/Ml Vial IV PUSH 05/12/24 19:21 10,000 units ONCE ONE Administration Ergocalciferol 50,000 units 06/10/24 09:00 Ergocalciferol 50,000 Units Capsule PO MONTHLY [facility] Furosemide 80 mg 05/11/24 18:00 05/12/24 06:30 Furosemide 80 Mg Tablet PO 80 mg Q12H SHANE Administration Guaifenesin/Dextromethorphan 10 ml 05/11/24 03:38 Guaifenesin/Dextromethorphan 10 Ml Udc PO Q4H PRN Cough Heparin Sodium (Porcine) 7,000 units 05/10/24 22:56 Heparin Sodium 5,000 Units/Ml Vial IV PUSH PRN PRN aPTT less than 55 seconds Heparin Sodium (Porcine) 3,500 units 05/10/24 22:56 Heparin Sodium 5,000 Units/Ml Vial IV PUSH PRN PRN aPTT 55 - 70 seconds Heparin Sodium/Dextrose 25,000 units in 250 mls @ 9 mls/hr 05/10/24 23:00 05/12/24 03:55 Heparin Sodium/D5w 100 Units/Ml IV CONT 900 units/hr .Q24H SHANE 9 mls/hr Titration Protocol 900 UNITS/HR Piperacillin Sod/Tazobactam Sod 2.25 gm in 50 mls @ 100 mls/hr 05/11/24 06:35 05/12/24 13:52 Zosyn 2.25 Gm/Ns 50 Ml IVPB 100 mls/hr Q8HR SHANE Administration Albumin Human 50 mls @ 999 mls/hr 05/12/24 06:17 Albutein IVPB 06/11/24 06:16 Q10M PRN HYPOTENSION Irbesartan 300 mg 05/11/24 10:25 05/12/24 13:54 Irbesartan 150 Mg Tablet PO 300 mg DAILY SHANE Administration Melatonin 5 mg 05/11/24 03:38 Melatonin 5 Mg Tablet PO HS PRN Insomnia Miconazole Nitrate 1 applic 05/11/24 10:30 05/12/24 13:54 Miconazole Nitrate 2% Cream 30 Gm Tube TOPICAL 1 applic Q12HR SHANE Administration Mupirocin 1 applic 05/11/24 10:25 05/12/24 13:54 Mupirocin 2% Oint 22 Gm Tube TOPICAL 1 applic Q12HR SHANE Administration Nifedipine 60 mg 05/11/24 10:10 05/12/24 13:53 Nifedipine 30 Mg Tab.Er.24 PO 60 mg Q12HR SHANE Administration Home Med (Tenapanor 30 mg 05/11/24 19:15 05/12/24 13:59 [Xphozah] 30 Mg PO 06/10/24 19:14 30 mg Tablet) BIDWM SHANE Administration Ondansetron HCl 4 mg 05/10/24 23:40 Ondansetron Inj 4 Mg/2 Ml Vial IV PUSH Q4H PRN Nausea Polyethylene Glycol 17 gm 05/11/24 03:38 Polyethylene Glycol 3350 17 Gm Powd.Pack PO QAM PRN Constipation Prochlorperazine Edisylate 10 mg 05/11/24 03:38 Prochlorperazine Edisylate 10 Mg/2 Ml Vial IV PUSH Q6H PRN Nausea And Vomiting Sevelamer Carbonate 800 mg 05/11/24 10:25 05/12/24 14:04 Sevelamer Carbonate 800 Mg Tablet PO 06/10/24 10:24 Not Given TID SHANE Triamcinolone Acetonide 1 applic 05/11/24 10:30 05/12/24 13:55 Triamcinolone Acet 0.5% Cream 15 Gm Tube TOPICAL 1 applic Q12HR SHANE Administration Vitamin B Complex/Folic Acid 1 cap 05/11/24 10:25 05/12/24 13:53 Vitamin B Cmplx/Vit C/Folic Ac 1 Capsule PO 1 cap DAILY SHANE Administration Radiology Results: ITS Impressions Head CT 05/10/24 19:17 IMPRESSION: No acute intracranial findings. Chest X-Ray 05/11/24 18:36 IMPRESSION: Left basal atelectasis versus pneumonia. Labs Labs: Laboratory Results - last 24 hr 05/11/24 05/12/24 05/12/24 20:10 00:53 04:30 WBC 3.9 L RBC 2.80 L Hgb 9.1 L Hct 28.0 L MCV 100.0 MCH 32.5 MCHC 32.5 RDW 15.8 H Plt Count 87 L MPV 11.5 H Immature Gran % (Auto) 0.8 H Neut % (Auto) 66.1 Lymph % (Auto) 22.2 [place] % (Auto) 10.3 H Eos % (Auto) 0.3 Baso % (Auto) 0.3 Lymph # (Auto) 0.86 L [place] # (Auto) 0.4 Eos # (Auto) 0.0 Baso # (Auto) 0.0 Abs Immat Gran (auto) 0.03 Absolute Neuts (auto) 2.6 Absolute Nucleated RBC 0.000 Band Neutrophils % 0 Nucleated RBC % 0.0 Platelet Estimate Adequate % Immature Plt Fraction 4.9 Hypochromasia 1+ Anisocytosis 1+ Schistocytes Rare APTT > 200.0 H* Sodium 133 L Potassium 3.2 L Chloride 91 L Carbon Dioxide 34 H Anion Gap 8 BUN 32 H D Creatinine 8.36 H Estim Creat Clear Calc 8 Estimated GFR 6 L Glucose 134 H POC Capillary Glucose 104 Calcium 8.5 Magnesium 1.7 Total Bilirubin 0.6 AST 43 ALT 20 Alkaline Phosphatase 52 Total Protein 6.0 L Albumin 3.1 L Hep Bs Antigen Negative Hep Bs Antibody Indeterminate 05/12/24 10:06 WBC RBC Hgb Hct MCV MCH MCHC RDW Plt Count MPV Immature Gran % (Auto) Neut % (Auto) Lymph % (Auto) [place] % (Auto) Eos % (Auto) Baso % (Auto) Lymph # (Auto) [place] # (Auto) Eos # (Auto) Baso # (Auto) Abs Immat Gran (auto) Absolute Neuts (auto) Absolute Nucleated RBC Band Neutrophils % Nucleated RBC % Platelet Estimate % Immature Plt Fraction Hypochromasia Anisocytosis Schistocytes APTT 95.8 H Sodium Potassium Chloride Carbon Dioxide Anion Gap BUN Creatinine Estim Creat Clear Calc Estimated GFR Glucose POC Capillary Glucose Calcium Magnesium Total Bilirubin AST ALT Alkaline Phosphatase Total Protein Albumin Hep Bs Antigen Hep Bs Antibody
[2024-05-12 17:31] LABS: Partial Thromboplastin Time 76.1 Seconds (22.3-36.8)
[2024-05-12] MEDS: ACETAMINOPHEN 325 MG TABLET 650 MG PO (23:02)
[2024-05-12] MEDS: MELATONIN 5 MG TABLET PO (23:02)
[2024-05-13] VITALS (15 sets, daily range): BP systolic 104–141; BP diastolic 45–69; PULSE 49–71; RESP 16–18; TEMP 36.4–37.1; O2SAT 95–100
[2024-05-13 05:51] LABS: Basophils Percent Auto 0.3 % (0.2-1.2); Eosinophils Absolute Auto 0.1 K/mm3 (0-0.3); Eosinophils Percent Auto 2.8 % (0-4.4); Hematocrit 26.4 % (42.0-52.0); Hemoglobin 8.4 g/dL (14.0-18.0); Immature Granulocyte Absolute 0.04 K/mm3 (0.00-0.031); Immature Granulocyte Percent A 1.1 % (0-0.5); Immature Platelet Fraction Pct 5.4 % (0.9-11.2); Lymphocytes Absolute Auto 1.03 K/mm3 (0.9-3.2); Lymphocytes Percent Auto 29.2 % (18.3-44.2); Mean Corpuscular HGB Conc 31.8 g/dl (32-36); Mean Corpuscular Hemoglobin 32.2 pg (26-34); Mean Corpuscular Volume 101.1 fl (80-100); Mean Platelet Volume 11.7 fl (7.4-10.4); Monocytes Absolute Auto 0.5 K/mm3 (0.1-0.6); Monocytes Percent Auto 13.3 % (2.6-8.5); Neutrophils Absolute Auto 1.9 K/mm3 (1.3-6.7); Neutrophils Percent Auto 53.3 % (45.5-73.1); Platelet Count Result 95 k/mm3 (150-375); Red Blood Count 2.61 M/mm3 (4.6-6.20); Red Cell Distribution Width 15.9 % (11.5-14.5); White Blood Count 3.5 K/mm3 (4.5-10.0)
[2024-05-13 06:01] LABS: Partial Thromboplastin Time 71.2 Seconds (22.3-36.8)
[2024-05-13] MEDS: HEPARIN SOD/D5W 100 UNITS/ML 25,000 UNITS/250 ML BAG 9 UNITS IV CONT (06:26)
[2024-05-13] MEDS: FUROSEMIDE 80 MG TABLET PO ×2 (06:28→17:33)
[2024-05-13] MEDS: PIPERACILLIN/TAZ 2.25G/NS 50ML 2.25 GM/50 ML BAG IVPB ×3 (06:28→21:39)
[2024-05-13 09:06] LABS: Alanine Aminotransferase 22 U/L (6-50); Albumin Level 3.1 g/dL (3.5-5.1); Alkaline Phosphatase 53 U/L (38-126); Anion Gap 6 mmol/L (4-12); Aspartate Amino Transferase 42 U/L (17-59); Bilirubin,Total 0.4 mg/dL (0.2-1.3); Blood Urea Nitrogen 17 mg/dL (9-20); Calcium 9.2 mg/dL (8.4-10.2); Carbon Dioxide 29 mmol/L (22-30); Chloride 104 mmol/L (98-107); Estimated CRCL calculation 13 ml/min; Estimated Glomerular Filt Rate 10; Glucose 88 mg/dL (65-110); Magnesium 1.9 mg/dL (1.6-2.3); Sodium 139 mmol/L (137-145)
--- NOTE | 2024-05-13 09:06 | P.PNCA_ITS ---
Progress Note: A&P Assessment and Plan (1) Bradycardia: Code(s): R00.1 - Bradycardia, unspecified Status: Acute (2) Elevated troponin: Code(s): R79.89 - Other specified abnormal findings of blood chemistry Status: Acute (3) Hypertension: Qualifiers: Hypertension type: unspecified Qualified Code(s): I10 - Essential (primary) hypertension Code(s): I10 - Essential (primary) hypertension Status: Chronic (4) HLD (hyperlipidemia): Code(s): E78.5 - Hyperlipidemia, unspecified Status: Acute Plan Assessment: 1. Bradycardia-patient's EKGs show sinus rhythm with second-degree Mobitz type 1 block and 2:1 block, PVCs, incomplete left bundle branch block with QRS more than 120 milliseconds. Both Mobitz type 1 and type 2 can cause 2 is to 1 block but patient has prolonged QRS duration>120 millisecond which makes second-degree Mobitz type 2 block possible. Patient continues to be bradycardic but does not have any chest pain, confusion, dizziness, lightheadedness, presyncope, syncope, diaphoresis, shortness breath at this time. We do not know if patient's o riginal symptoms of confusion were secondary to bradycardia since there was no monitor at the time 2. Elevated troponin-could be secondary to bradycardia with is elevated due to end-stage renal disease; patient does not have any chest pain; TTE showed normal LV ejection fraction 3. Hypertension- controlled 4. Hyperlipidemia 5. End-stage renal disease on hemodialysis 6. Chronic anemia secondary to end-stage renal disease 7. Hypokalemia with potassium 3.1 8. Thrombocytopenia with platelet counts of 87,000 Plan: Transfer to [facility] has been initiated for EP evaluation of need for pacemaker. Patient awaiting transfer Monitor on telemetry Avoid any AV alba blocking agent Check and replace electrolytes to keep potassium greater than 4 and magnesium greater than 2 Continue aspirin 81 mg daily, statin Continue Lasix Continue irbesartan, nifedipine Management of other medical problems per primary team I updated patient's daughters, 1 of who was at the bedside and the other 1 over a phone call about the current medical condition and management plan. The patient and both his daughters arch in agreement with the plan Subjective Date/time seen: 05/13/24 09:06 Interval history: Reason for encounter: Bradycardia Relevant history: 78-year-old male with history of hyperlipidemia, end-stage renal disease on dialysis, anxiety, depression, gout presents with chief complaints of confusion and fatigue after hemodialysis. No chest pain, shortness of breath, palpitations, presyncope, syncope, leg swelling, recent weight gain, palpitations, cough, nausea, emesis, abdominal pain, headache, focal weakness. He lives by himself, is sedentary and wheelchair-bound for most of the day. He was noted to have bradycardia and Cardiology was consulted for further recommendations. Pertinent workup as below Hemoglobin: 8.8 Platelets: 23301 Potassium: 3.1 Creatinine: 6.26 Troponin: 0.17, 0.253, 0.319 EKG: Sinus bradycardia with second-degree type 1 block (Wenckebach), PVCs, incomplete left bundle branch block, possible inferior infarct age indeterminate, possible anterior infarct age indeterminate EKG: Sinus bradycardia with 2:1 block, PVCs, incomplete left bundle branch block, possible inferior infarct age indeterminate, possible anterior infarct age indeterminate Head CT: No acute pathology Interval history: Patient is sitting up at the side of the bed and eating his breakfast this morning. He denies any chest pain, lightheadedness, dizziness, palpitations, shortness of breath, nausea, emesis, abdominal pain, headache, focal weakness. Telemetry shows sinus rhythm with rates in the 40s. Review of Systems Review of Systems: Complete review of systems was performed and negative other than those mentioned in HPI Exam Narrative: General: Alert oriented x3, no acute distress Neck: Supple, did not assess JVD as he is sitting up in the side of the bed Chest: Bilaterally clear to auscultation, no rales or rhonchi Cardiac: S1, S2 +, regular rate, regular rhythm, no murmurs or rubs Extremities: Bilateral lower extremity edema 1+, no skin rash Neurologic: Alert and oriented x3, no focal neurological deficits Objective Data Vital Signs Vital Signs: Vital Signs - 24 hr 05/12/24 09:21 05/12/24 09:30 05/12/24 09:45 Temperature Pulse Rate 70 65 68 Respiratory Rate Blood Pressure 122/63 119/60 124/63 Pulse Oximetry Oxygen Delivery 05/12/24 10:00 05/12/24 10:00 05/12/24 10:15 Temperature Pulse Rate 68 58 L 65 Respiratory Rate Blood Pressure 130/66 122/71 Pulse Oximetry Oxygen Delivery 05/12/24 10:30 05/12/24 10:45 05/12/24 11:00 Temperature Pulse Rate 69 68 67 Respiratory Rate Blood Pressure 128/64 134/67 130/65 Pulse Oximetry Oxygen Delivery 05/12/24 11:15 05/12/24 11:30 05/12/24 11:45 Temperature Pulse Rate 67 65 66 Respiratory Rate Blood Pressure 138/65 128/67 140/66 Pulse Oximetry Oxygen Delivery 05/12/24 12:00 05/12/24 12:00 05/12/24 12:15 Temperature Pulse Rate 65 65 66 Respiratory Rate Blood Pressure 125/64 152/65 H Pulse Oximetry Oxygen Delivery 05/12/24 12:30 05/12/24 12:45 05/12/24 12:55 Temperature Pulse Rate 67 52 L 61 Respiratory Rate Blood Pressure 144/66 H 143/62 H 153/69 H Pulse Oximetry Oxygen Delivery 05/12/24 13:20 05/12/24 14:00 05/12/24 14:09 Temperature Pulse Rate 75 77 Respiratory Rate 16 Blood Pressure 152/67 H Pulse Oximetry 65 L Oxygen Delivery Room Air 05/12/24 15:46 05/12/24 16:00 05/12/24 16:00 Temperature 36.8 C Pulse Rate 72 58 L Respiratory Rate 20 Blood Pressure 124/51 L Pulse Oximetry 99 Oxygen Delivery Room Air 05/12/24 18:00 05/12/24 20:00 05/12/24 20:00 Temperature 36.9 C Pulse Rate 65 60 Respiratory Rate 20 Blood Pressure 120/61 Pulse Oximetry 96 Oxygen Delivery Room Air 05/12/24 20:00 05/12/24 22:00 05/12/24 23:57 Temperature 36.9 C Pulse Rate 56 L 56 L 58 L Respiratory Rate 20 Blood Pressure 130/54 L Pulse Oximetry 96 Oxygen Delivery 05/13/24 00:00 05/13/24 00:00 05/13/24 02:00 Temperature Pulse Rate 59 L 52 L Respiratory Rate Blood Pressure Pulse Oximetry Oxygen Delivery Room Air 05/13/24 04:00 05/13/24 04:00 05/13/24 04:00 Temperature 36.9 C Pulse Rate 49 L 49 L Respiratory Rate 16 Blood Pressure 117/52 L Pulse Oximetry 99 Oxygen Delivery Room Air 05/13/24 06:00 05/13/24 08:00 Temperature 36.4 C L Pulse Rate 51 L 56 L Respiratory Rate 16 Blood Pressure 104/48 L Pulse Oximetry 95 Oxygen Delivery Intake/Output Intake/Output: Intake & Output 05/10/24 05/11/24 05/12/24 05/13/24 23:59 23:59 23:59 23:59 Intake Total 740.0 1297.2 622.8 Output Total 0 0 Balance 740.0 1297.2 622.8 Meds/Results Medications: Active Medications Generic Name Dose Route Start Last Admin Trade Name Freq PRN Reason Stop Dose Admin Acetaminophen 650 mg 05/10/24 23:40 05/12/24 23:02 Acetaminophen 325 Mg Tablet PO 650 mg Q4H PRN Administration Mild Pain (1-3) or Fever Albuterol/Ipratropium 3 ml 05/11/24 03:38 Ipratropium 0.5 Mg/Albuterol Sulfate 2.5 Mg Ampul.Neb 3 Ml INHALATION Q4HRT PRN shortness of breath/Wheezing Allopurinol 100 mg 05/11/24 10:25 05/12/24 13:53 Allopurinol 100 Mg Tablet PO 100 mg DAILY SHANE Administration Aspirin 81 mg 05/11/24 10:25 05/12/24 13:54 Aspirin 81 Mg Enteric Tablet PO 81 mg DAILY SHAEN Administration Atorvastatin Calcium 80 mg 05/11/24 10:25 05/12/24 13:54 Atorvastatin 40 Mg Tablet PO 80 mg DAILY SHANE Administration Benzonatate 200 mg 05/11/24 10:08 Benzonatate 100 Mg Capsule PO TID PRN cough Docusate Sodium 100 mg 05/11/24 10:25 05/12/24 17:23 Docusate Sodium 100 Mg Capsule PO Not Given BID SHANE Ergocalciferol 50,000 units 06/10/24 09:00 Ergocalciferol 50,000 Units Capsule PO MONTHLY SHANE Furosemide 80 mg 05/11/24 18:00 05/13/24 06:28 Furosemide 80 Mg Tablet PO 80 mg Q12H SHANE Administration Guaifenesin/Dextromethorphan 10 ml 05/11/24 03:38 Guaifenesin/Dextromethorphan 10 Ml Udc PO Q4H PRN Cough Heparin Sodium (Porcine) 7,000 units 05/10/24 22:56 Heparin Sodium 5,000 Units/Ml Vial IV PUSH PRN PRN aPTT less than 55 seconds Heparin Sodium (Porcine) 3,500 units 05/10/24 22:56 Heparin Sodium 5,000 Units/Ml Vial IV PUSH PRN PRN aPTT 55 - 70 seconds Heparin Sodium/Dextrose 25,000 units in 250 mls @ 9 mls/hr 05/10/24 23:00 05/13/24 06:26 Heparin Sodium/D5w 100 Units/Ml IV CONT 900 units/hr .Q24H SHANE 9 mls/hr Administration Protocol 900 UNITS/HR Piperacillin Sod/Tazobactam Sod 2.25 gm in 50 mls @ 100 mls/hr 05/11/24 06:35 05/13/24 06:28 Zosyn 2.25 Gm/Ns 50 Ml IVPB 100 mls/hr Q8HR SHANE Administration Albumin Human 50 mls @ 999 mls/hr 05/12/24 06:17 Albutein IVPB 06/11/24 06:16 Q10M PRN HYPOTENSION Irbesartan 300 mg 05/11/24 10:25 05/12/24 13:54 Irbesartan 150 Mg Tablet PO 300 mg DAILY SHANE Administration Melatonin 5 mg 05/11/24 03:38 05/12/24 23:02 Melatonin 5 Mg Tablet PO 5 mg HS PRN Administration Insomnia Miconazole Nitrate 1 applic 05/11/24 10:30 05/12/24 20:04 Miconazole Nitrate 2% Cream 30 Gm Tube TOPICAL 1 applic Q12HR SHANE Administration Mupirocin 1 applic 05/11/24 10:25 05/12/24 20:04 Mupirocin 2% Oint 22 Gm Tube TOPICAL 1 applic Q12HR SHANE Administration Nifedipine 60 mg 05/11/24 10:10 05/12/24 20:04 Nifedipine 30 Mg Tab.Er.24 PO 60 mg Q12HR SHANE Administration Home Med (Tenapanor 30 mg 05/11/24 19:15 05/12/24 17:23 [Xphozah] 30 Mg PO 06/10/24 19:14 Not Given Tablet) BIDWM SHANE Ondansetron HCl 4 mg 05/10/24 23:40 Ondansetron Inj 4 Mg/2 Ml Vial IV PUSH Q4H PRN Nausea Polyethylene Glycol 17 gm 05/11/24 03:38 Polyethylene Glycol 3350 17 Gm Powd.Pack PO QAM PRN Constipation Prochlorperazine Edisylate 10 mg 05/11/24 03:38 Prochlorperazine Edisylate 10 Mg/2 Ml Vial IV PUSH Q6H PRN Nausea And Vomiting Sevelamer Carbonate 800 mg 05/11/24 10:25 05/12/24 17:22 Sevelamer Carbonate 800 Mg Tablet PO 06/10/24 10:24 800 mg TID SHANE Administration Triamcinolone Acetonide 1 applic 05/11/24 10:30 05/12/24 20:04 Triamcinolone Acet 0.5% Cream 15 Gm Tube TOPICAL 1 applic Q12HR SHANE Administration Vitamin B Complex/Folic Acid 1 cap 05/11/24 10:25 05/12/24 13:53 Vitamin B Cmplx/Vit C/Folic Ac 1 Capsule PO 1 cap DAILY SHANE Administration Radiology Results: ITS Impressions Head CT 05/10/24 19:17 IMPRESSION: No acute intracranial findings. Chest X-Ray 05/11/24 18:36 IMPRESSION: Left basal atelectasis versus pneumonia. Labs Labs: Laboratory Results - last 24 hr 05/12/24 05/12/24 05/12/24 04:30 10:06 17:10 WBC RBC Hgb Hct MCV MCH MCHC RDW Plt Count MPV Immature Gran % (Auto) Neut % (Auto) Lymph % (Auto) [place] % (Auto) Eos % (Auto) Baso % (Auto) Lymph # (Auto) [place] # (Auto) Eos # (Auto) Baso # (Auto) Abs Immat Gran (auto) Absolute Neuts (auto) Absolute Nucleated RBC Nucleated RBC % % Immature Plt Fraction APTT 95.8 H 76.1 H Magnesium 1.7 05/13/24 05/13/24 05:09 05:10 WBC 3.5 L RBC 2.61 L Hgb 8.4 L Hct 26.4 L MCV 101.1 H MCH 32.2 MCHC 31.8 L RDW 15.9 H Plt Count 95 L MPV 11.7 H Immature Gran % (Auto) 1.1 H Neut % (Auto) 53.3 Lymph % (Auto) 29.2 [place] % (Auto) 13.3 H Eos % (Auto) 2.8 Baso % (Auto) 0.3 Lymph # (Auto) 1.03 [place] # (Auto) 0.5 Eos # (Auto) 0.1 Baso # (Auto) 0.0 Abs Immat Gran (auto) 0.04 H Absolute Neuts (auto) 1.9 Absolute Nucleated RBC 0.000 Nucleated RBC % 0.0 % Immature Plt Fraction 5.4 APTT 71.2 H Magnesium
[2024-05-13] MEDS: DOCUSATE SODIUM 100 MG CAPSULE PO (09:15)
[2024-05-13] MEDS: IRBESARTAN 150 MG TABLET 300 MG PO (09:15)
[2024-05-13] MEDS: ATORVASTATIN 40 MG TABLET 80 MG PO (09:15)
[2024-05-13] MEDS: allopurinoL 100 MG TABLET PO (09:15)
[2024-05-13] MEDS: SEVELAMER CARBONATE 800 MG TABLET PO ×3 (09:15→17:33)
[2024-05-13] MEDS: NIFEdipine 30 MG TAB.ER.24 60 MG PO ×2 (09:15→21:38)
[2024-05-13] MEDS: ASPIRIN 81 MG ENTERIC TABLET PO (09:15)
[2024-05-13] MEDS: VITAMIN B CMPLX/VIT C/FOLIC AC 1 CAPSULE 1 CAP PO (09:15)
[2024-05-13] MEDS: TENAPANOR 30 MG 30 EACH PO ×2 (09:22→17:33)
--- NOTE | 2024-05-13 10:51 | P.PNNP_ITS ---
Progress Note: A&P Assessment and Plan (1) End stage renal disease: Code(s): N18.6 - End stage renal disease Status: Chronic Assessment and Plan: * hemodialysis went well yesterday * check labs in am * Volume status looks okay. (2) AMS (altered mental status): Qualifiers: Altered mental status type: unspecified Qualified Code(s): R41.82 - Altered mental status, unspecified Code(s): R41.82 - Altered mental status, unspecified Status: Acute Assessment and Plan: * resolved. (3) Bradycardia: Code(s): R00.1 - Bradycardia, unspecified Status: Acute Assessment and Plan: * Heart rate is still in the 50s in the 60s. * asymptomatic * Cardiology saw and recommend transfer so he can get EP studies. * waiting for a bed to open up at [facility] * Echocardiogram showed hyperdynamic LV function. (4) Fever: Code(s): R50.9 - Fever, unspecified Status: Acute Assessment and Plan: * as noted earlier this AM * afebrile today * WBC normal * viral testing for influenza, RSV, and COVID negative * blood culture NGTD * empirically on Zosyn * no other clinical signs of infection (5) Anemia: Code(s): D64.9 - Anemia, unspecified Status: Chronic Assessment and Plan: * due to ESRD * Epogen with HD * hb up and down in the mid 8s to mid 9s. * check retic count. since on atbs will hold off on iron studies. (6) Hypertension: Qualifiers: Hypertension type: unspecified Qualified Code(s): I10 - Essential (primary) hypertension Code(s): I10 - Essential (primary) hypertension Status: Chronic Assessment and Plan: * systolic in the 110-130 range (7) Diabetes: Code(s): E11.9 - Type 2 diabetes mellitus without complications Status: Acute Assessment and Plan: * diet controlled * no currently requiring any medications * glycemic control per hospitalist Subjective Date/time seen: 05/13/24 10:51 Interval history: alert. feels okay asking to go home. we discussed. Exam Narrative: WDWN male in NAD skin no rash head ncat lungs clear cor reg no rub or gallop abd BS+ nontender and soft ext no edema or cyanosis. Objective Data Vital Signs Vital Signs: Vital Signs - 24 hr 05/12/24 11:00 05/12/24 11:15 05/12/24 11:30 Temperature Pulse Rate 67 67 65 Respiratory Rate Blood Pressure 130/65 138/65 128/67 Pulse Oximetry Oxygen Delivery 05/12/24 11:45 05/12/24 12:00 05/12/24 12:00 Temperature Pulse Rate 66 65 65 Respiratory Rate Blood Pressure 140/66 125/64 Pulse Oximetry Oxygen Delivery 05/12/24 12:15 05/12/24 12:30 05/12/24 12:45 Temperature Pulse Rate 66 67 52 L Respiratory Rate Blood Pressure 152/65 H 144/66 H 143/62 H Pulse Oximetry Oxygen Delivery 05/12/24 12:55 05/12/24 13:20 05/12/24 14:00 Temperature Pulse Rate 61 75 77 Respiratory Rate 16 Blood Pressure 153/69 H 152/67 H Pulse Oximetry 65 L Oxygen Delivery 05/12/24 14:09 05/12/24 15:46 05/12/24 16:00 Temperature 98.2 F Pulse Rate 72 Respiratory Rate 20 Blood Pressure 124/51 L Pulse Oximetry 99 Oxygen Delivery Room Air Room Air 05/12/24 16:00 05/12/24 18:00 05/12/24 20:00 Temperature 98.4 F Pulse Rate 58 L 65 60 Respiratory Rate 20 Blood Pressure 120/61 Pulse Oximetry 96 Oxygen Delivery 05/12/24 20:00 05/12/24 20:00 05/12/24 22:00 Temperature Pulse Rate 56 L 56 L Respiratory Rate Blood Pressure Pulse Oximetry Oxygen Delivery Room Air 05/12/24 23:57 05/13/24 00:00 05/13/24 00:00 Temperature 98.5 F Pulse Rate 58 L 59 L Respiratory Rate 20 Blood Pressure 130/54 L Pulse Oximetry 96 Oxygen Delivery Room Air 05/13/24 02:00 05/13/24 04:00 05/13/24 04:00 Temperature 98.5 F Pulse Rate 52 L 49 L Respiratory Rate 16 Blood Pressure 117/52 L Pulse Oximetry 99 Oxygen Delivery Room Air 05/13/24 04:00 05/13/24 06:00 05/13/24 08:00 Temperature 97.5 F L Pulse Rate 49 L 51 L 56 L Respiratory Rate 16 Blood Pressure 104/48 L Pulse Oximetry 95 Oxygen Delivery 05/13/24 08:00 Temperature Pulse Rate Respiratory Rate Blood Pressure Pulse Oximetry Oxygen Delivery Room Air Intake/Output Intake/Output: Intake & Output 05/10/24 05/11/24 05/12/24 05/13/24 23:59 23:59 23:59 23:59 Intake Total 740.0 1297.2 622.8 Output Total 0 0 Balance 740.0 1297.2 622.8 Meds/Results Medications: Active Medications Generic Name Dose Route Start Last Admin Trade Name Freq PRN Reason Stop Dose Admin Acetaminophen 650 mg 05/10/24 23:40 05/12/24 23:02 Acetaminophen 325 Mg Tablet PO 650 mg Q4H PRN Administration Mild Pain (1-3) or Fever Albuterol/Ipratropium 3 ml 05/11/24 03:38 Ipratropium 0.5 Mg/Albuterol Sulfate 2.5 Mg Ampul.Neb 3 Ml INHALATION Q4HRT PRN shortness of breath/Wheezing Allopurinol 100 mg 05/11/24 10:25 05/13/24 09:15 Allopurinol 100 Mg Tablet PO 100 mg DAILY SHANE Administration Aspirin 81 mg 05/11/24 10:25 05/13/24 09:15 Aspirin 81 Mg Enteric Tablet PO 81 mg DAILY SHANE Administration Atorvastatin Calcium 80 mg 05/11/24 10:25 05/13/24 09:15 Atorvastatin 40 Mg Tablet PO 80 mg DAILY SHANE Administration Benzonatate 200 mg 05/11/24 10:08 Benzonatate 100 Mg Capsule PO TID PRN cough Docusate Sodium 100 mg 05/11/24 10:05/13/24 09:15 Docusate Sodium 100 Mg Capsule PO 100 mg BID SHANE Administration Ergocalciferol 50,000 units 06/10/24 09:00 Ergocalciferol 50,000 Units Capsule PO MONTHLY SHANE Furosemide 80 mg 05/11/24 18:00 05/13/24 06:28 Furosemide 80 Mg Tablet PO 80 mg Q12H SHANE Administration Guaifenesin/Dextromethorphan 10 ml 05/11/24 03:38 Guaifenesin/Dextromethorphan 10 Ml Udc PO Q4H PRN Cough Heparin Sodium (Porcine) 7,000 units 05/10/24 22:56 Heparin Sodium 5,000 Units/Ml Vial IV PUSH PRN PRN aPTT less than 55 seconds Heparin Sodium (Porcine) 3,500 units 05/10/24 22:56 Heparin Sodium 5,000 Units/Ml Vial IV PUSH PRN PRN aPTT 55 - 70 seconds Heparin Sodium/Dextrose 25,000 units in 250 mls @ 9 mls/hr 05/10/24 23:00 05/13/24 06:26 Heparin Sodium/D5w 100 Units/Ml IV CONT 900 units/hr .Q24H SHANE 9 mls/hr Administration Protocol 900 UNITS/HR Piperacillin Sod/Tazobactam Sod 2.25 gm in 50 mls @ 100 mls/hr 05/11/24 06:35 05/13/24 06:28 Zosyn 2.25 Gm/Ns 50 Ml IVPB 100 mls/hr Q8HR [facility]ANE Administration Albumin Human 50 mls @ 999 mls/hr 05/12/24 06:17 Albutein IVPB 06/11/24 06:16 Q10M PRN HYPOTENSION Irbesartan 300 mg 05/11/24 10:25 05/13/24 09:15 Irbesartan 150 Mg Tablet PO 300 mg DAILY SHANE Administration Melatonin 5 mg 05/11/24 03:38 05/12/24 23:02 Melatonin 5 Mg Tablet PO 5 mg HS PRN Administration Insomnia Miconazole Nitrate 1 applic 05/11/24 10:30 05/13/24 09:26 Miconazole Nitrate 2% Cream 30 Gm Tube TOPICAL Not Given Q12HR [facility] Mupirocin 1 applic 05/11/24 10:25 05/13/24 09:26 Mupirocin 2% Oint 22 Gm Tube TOPICAL Not Given Q12HR [facility] Nifedipine 60 mg 05/11/24 10:10 05/13/24 09:15 Nifedipine 30 Mg Tab.Er.24 PO 60 mg Q12HR [facility]ANE Administration Home Med (Tenapanor 30 mg 05/11/24 19:15 05/13/24 09:22 [Xphozah] 30 Mg PO 06/10/24 19:14 30 mg Tablet) BIDWM SHANE Administration Ondansetron HCl 4 mg 05/10/24 23:40 Ondansetron Inj 4 Mg/2 Ml Vial IV PUSH Q4H PRN Nausea Polyethylene Glycol 17 gm 05/11/24 03:38 Polyethylene Glycol 3350 17 Gm Powd.Pack PO QAM PRN Constipation Prochlorperazine Edisylate 10 mg 05/11/24 03:38 Prochlorperazine Edisylate 10 Mg/2 Ml Vial IV PUSH Q6H PRN Nausea And Vomiting Sevelamer Carbonate 800 mg 05/11/24 10:25 05/13/24 09:15 Sevelamer Carbonate 800 Mg Tablet PO 06/10/24 10:24 800 mg TID SHANE Administration Triamcinolone Acetonide 1 applic 05/11/24 10:30 05/13/24 09:26 Triamcinolone Acet 0.5% Cream 15 Gm Tube TOPICAL Not Given Q12HR [facility] Vitamin B Complex/Folic Acid 1 cap 05/11/24 10:25 05/13/24 09:15 Vitamin B Cmplx/Vit C/Folic Ac 1 Capsule PO 1 cap DAILY SHANE Administration Radiology Results: ITS Impressions Head CT 05/10/24 19:17 IMPRESSION: No acute intracranial findings. Chest X-Ray 05/11/24 18:36 IMPRESSION: Left basal atelectasis versus pneumonia. Labs Labs: Laboratory Results - last 24 hr 05/12/24 05/12/24 05/13/24 10:06 17:10 04:55 WBC RBC Hgb Hct MCV MCH MCHC RDW Plt Count MPV Immature Gran % (Auto) Neut % (Auto) Lymph % (Auto) Clarke % (Auto) Eos % (Auto) Baso % (Auto) Lymph # (Auto) Clarke # (Auto) Eos # (Auto) Baso # (Auto) Abs Immat Gran (auto) Absolute Neuts (auto) Absolute Nucleated RBC Nucleated RBC % % Immature Plt Fraction APTT 95.8 H 76.1 H Sodium 139 Potassium 4.0 Chloride 104 Carbon Dioxide 29 Anion Gap 6 BUN 17 D Creatinine 5.48 H Estim Creat Clear Calc 13 Estimated GFR 10 L Glucose 88 Calcium 9.2 Magnesium 1.9 Total Bilirubin 0.4 AST 42 ALT 22 Alkaline Phosphatase 53 Total Protein 6.0 L Albumin 3.1 L 05/13/24 05/13/24 05:09 05:10 WBC 3.5 L RBC 2.61 L Hgb 8.4 L Hct 26.4 L MCV 101.1 H MCH 32.2 MCHC 31.8 L RDW 15.9 H Plt Count 95 L MPV 11.7 H Immature Gran % (Auto) 1.1 H Neut % (Auto) 53.3 Lymph % (Auto) 29.2 Clarke % (Auto) 13.3 H Eos % (Auto) 2.8 Baso % (Auto) 0.3 Lymph # (Auto) 1.03 Clarke # (Auto) 0.5 Eos # (Auto) 0.1 Baso # (Auto) 0.0 Abs Immat Gran (auto) 0.04 H Absolute Neuts (auto) 1.9 Absolute Nucleated RBC 0.000 Nucleated RBC % 0.0 % Immature Plt Fraction 5.4 APTT 71.2 H Sodium Potassium Chloride Carbon Dioxide Anion Gap BUN Creatinine Estim Creat Clear Calc Estimated GFR Glucose Calcium Magnesium Total Bilirubin AST ALT Alkaline Phosphatase Total Protein Albumin
--- NOTE | 2024-05-13 14:01 | PM.IMPN ---
Progress Note: A&P Assessment and Plan (1) Acute metabolic encephalopathy: Code(s): G93.41 - Metabolic encephalopathy Status: Acute (2) Fever of unknown origin (FUO): Code(s): R50.9 - Fever, unspecified Status: Acute (3) New onset a-fib: Code(s): I48.91 - Unspecified atrial fibrillation Status: Acute (4) End stage chronic kidney disease: Code(s): N18.6 - End stage renal disease Status: Acute Plan Acute and principal conditions 1. Disquilebrium syndrome. improved 2. Elevated troponin. 2. FUO Rx: Blood culture; anuric (no urine samples) Zosyn; Cardiology consulted; on Heparin gtt CRP, ESR Chronic and stable 1. ESRD on HD-TTS 2. Obesity. BMI 300 3. Hypertension. 4. Dyslipidemia. 5. Gout. Miscellaneous care. 1. Code status. Full 2. VTE prophylaxis. SCDs; Heparin gtt 3. Nutrition. Renal diet patient still waiting for the bed, on 05/12 mounting inspector discuss with patient family and recommended to transfer the hospital for EP evaluation and further recommendation to follow, it is high risk to take the patient home, family has agreed to keep patient in the hospital until transfer, on 05/12 Patient was seen by the compressor assembler and patient had a dialysis, there were no events and patient is clinically stable. Patient remains clinically stable there were no events last night still waiting for the bed at [facility] will continue to monitor. Subjective Date/time seen: 05/13/24 14:01 Interval history: Chief Complaint: 1.Confusion. Post-HD 2. Fatigue H&P-Narrative: Oscar Barker is an 78 yo M with a Mhx significant for gout, dyslipidemia, Hypertension, ESRD on HD-TTS, After undergoing his routine HD session hours [employer], he developed an altered mental status; it was aggravated by verbal stimuli; no known alleviating factors, associated with a confused mentation and fever. He did not have any episodes of chest pain, headaches, vomiting flank pain, dysuria, skin/joint changes, cough or falls. He resides alone, does not smoke/chew tobacco, drink alcohol or consume recreational/illicit drugs; he is sedentary and is wheelchair bound for most parts of his day. patient with elevated tropes was seen by the mounting inspector no ischemic work up was recommended however patient bradycardia with Mobitz type 1 and type 2 concerning possible heart block and recommending to transfer the patient to [facility] for EP consult. did call the transfer line patient is accepted by the hospital and waiting for a bed. patient still waiting for the bed, on 05/12 mounting inspector discuss with patient family and recommended to transfer the hospital for EP evaluation and further recommendation to follow, it is high risk to take the patient home, family has agreed to keep patient in the hospital until transfer, on 05/12 Patient was seen by the compressor assembler and patient had a dialysis, there were no events and patient is clinically stable. Patient remains clinically stable there were no events last night still waiting for the bed at [facility] will continue to monitor. Review of Systems Review of Systems: Complete review of systems was performed and negative other than those mentioned in HPI Exam Narrative: Patient is comfortable, NAD HEENT: eyes are clear and none icteric LUNGS:CTA HEART: RR S1S2 ABD: BS+, Soft and nontender Lower extremities: no edema SKIN: nonjaundiced Neuro: grossly intact. Objective Data Vital Signs Vital Signs: Vital Signs - 24 hr 05/12/24 14:09 05/12/24 15:46 05/12/24 16:00 Temperature 36.8 C Pulse Rate 72 Respiratory Rate 20 Blood Pressure 124/51 L Pulse Oximetry 99 Oxygen Delivery Room Air Room Air 05/12/24 16:00 05/12/24 18:00 05/12/24 20:00 Temperature 36.9 C Pulse Rate 58 L 65 60 Respiratory Rate 20 Blood Pressure 120/61 Pulse Oximetry 96 Oxygen Delivery 05/12/24 20:00 05/12/24 20:00 05/12/24 22:00 Temperature Pulse Rate 56 L 56 L Respiratory Rate Blood Pressure Pulse Oximetry Oxygen Delivery Room Air 05/12/24 23:57 05/13/24 00:00 05/13/24 00:00 Temperature 36.9 C Pulse Rate 58 L 59 L Respiratory Rate 20 Blood Pressure 130/54 L Pulse Oximetry 96 Oxygen Delivery Room Air 05/13/24 02:00 05/13/24 04:00 05/13/24 04:00 Temperature 36.9 C Pulse Rate 52 L 49 L Respiratory Rate 16 Blood Pressure 117/52 L Pulse Oximetry 99 Oxygen Delivery Room Air 05/13/24 04:00 05/13/24 06:00 05/13/24 08:00 Temperature 36.4 C L Pulse Rate 49 L 51 L 56 L Respiratory Rate 16 Blood Pressure 104/48 L Pulse Oximetry 95 Oxygen Delivery 05/13/24 08:00 05/13/24 10:22 05/13/24 11:44 Temperature 36.7 C Pulse Rate 71 Respiratory Rate 16 Blood Pressure 126/62 Pulse Oximetry 97 Oxygen Delivery Room Air Room Air 05/13/24 12:00 Temperature Pulse Rate Respiratory Rate Blood Pressure Pulse Oximetry Oxygen Delivery Room Air Intake/Output Intake/Output: Intake & Output 05/10/24 05/11/24 05/12/24 05/13/24 23:59 23:59 23:59 23:59 Intake Total 740.0 1297.2 862.8 Output Total 0 0 Balance 740.0 1297.2 862.8 Meds/Results Medications: Active Medications Generic Name Dose Route Start Last Admin Trade Name Freq PRN Reason Stop Dose Admin Acetaminophen 650 mg 05/10/24 23:40 05/12/24 23:02 Acetaminophen 325 Mg Tablet PO 650 mg Q4H PRN Administration Mild Pain (1-3) or Fever Albuterol/Ipratropium 3 ml 05/11/24 03:38 Ipratropium 0.5 Mg/Albuterol Sulfate 2.5 Mg Ampul.Neb 3 Ml INHALATION Q4HRT PRN shortness of breath/Wheezing Allopurinol 100 mg 05/11/24 10:25 05/13/24 09:15 Allopurinol 100 Mg Tablet PO 100 mg DAILY SHANE Administration Aspirin 81 mg 05/11/24 10:05/13/24 09:15 Aspirin 81 Mg Enteric Tablet PO 81 mg DAILY SHANE Administration Atorvastatin Calcium 80 mg 05/11/24 10:05/13/24 09:15 Atorvastatin 40 Mg Tablet PO 80 mg DAILY SHANE Administration Benzonatate 200 mg 05/11/24 10:08 Benzonatate 100 Mg Capsule PO TID PRN cough Docusate Sodium 100 mg 05/11/24 10:25 05/13/24 09:15 Docusate Sodium 100 Mg Capsule PO 100 mg BID SHANE Administration Ergocalciferol 50,000 units 06/10/24 09:00 Ergocalciferol 50,000 Units Capsule PO MONTHLY SHANE Furosemide 80 mg 05/11/24 18:00 05/13/24 06:28 Furosemide 80 Mg Tablet PO 80 mg Q12H SHANE Administration Guaifenesin/Dextromethorphan 10 ml 05/11/24 03:38 Guaifenesin/Dextromethorphan 10 Ml Udc PO Q4H PRN Cough Heparin Sodium (Porcine) 7,000 units 05/10/24 22:56 Heparin Sodium 5,000 Units/Ml Vial IV PUSH PRN PRN aPTT less than 55 seconds Heparin Sodium (Porcine) 3,500 units 05/10/24 22:56 Heparin Sodium 5,000 Units/Ml Vial IV PUSH PRN PRN aPTT 55 - 70 seconds Heparin Sodium/Dextrose 25,000 units in 250 mls @ 9 mls/hr 05/10/24 23:00 05/13/24 06:26 Heparin Sodium/D5w 100 Units/Ml IV CONT 900 units/hr .Q24H SHANE 9 mls/hr Administration Protocol 900 UNITS/HR Piperacillin Sod/Tazobactam Sod 2.25 gm in 50 mls @ 100 mls/hr 05/11/24 06:35 05/13/24 06:28 Zosyn 2.25 Gm/Ns 50 Ml IVPB 100 mls/hr Q8HR SHANE Administration Albumin Human 50 mls @ 999 mls/hr 05/12/24 06:17 Albutein IVPB 06/11/24 06:16 Q10M PRN HYPOTENSION Irbesartan 300 mg 05/11/24 10:25 05/13/24 09:15 Irbesartan 150 Mg Tablet PO 300 mg DAILY SHANE Administration Melatonin 5 mg 05/11/24 03:38 05/12/24 23:02 Melatonin 5 Mg Tablet PO 5 mg HS PRN Administration Insomnia Miconazole Nitrate 1 applic 05/11/24 10:30 05/13/24 09:26 Miconazole Nitrate 2% Cream 30 Gm Tube TOPICAL Not Given Q12HR [facility] Mupirocin 1 applic 05/11/24 10:25 05/13/24 09:26 Mupirocin 2% Oint 22 Gm Tube TOPICAL Not Given Q12HR [facility] Nifedipine 60 mg 05/11/24 10:10 05/13/24 09:15 Nifedipine 30 Mg Tab.Er.24 PO 60 mg Q12HR SHANE Administration Home Med (Tenapanor 30 mg 05/11/24 19:15 05/13/24 09:22 [Xphozah] 30 Mg PO 06/10/24 19:14 30 mg Tablet) BIDWM SHANE Administration Ondansetron HCl 4 mg 05/10/24 23:40 Ondansetron Inj 4 Mg/2 Ml Vial IV PUSH Q4H PRN Nausea Polyethylene Glycol 17 gm 05/11/24 03:38 Polyethylene Glycol 3350 17 Gm Powd.Pack PO QAM PRN Constipation Prochlorperazine Edisylate 10 mg 05/11/24 03:38 Prochlorperazine Edisylate 10 Mg/2 Ml Vial IV PUSH Q6H PRN Nausea And Vomiting Sevelamer Carbonate 800 mg 05/11/24 10:25 05/13/24 09:15 Sevelamer Carbonate 800 Mg Tablet PO 06/10/24 10:24 800 mg TID SHANE Administration Triamcinolone Acetonide 1 applic 05/11/24 10:30 05/13/24 09:26 Triamcinolone Acet 0.5% Cream 15 Gm Tube TOPICAL Not Given Q12HR SHANE Vitamin B Complex/Folic Acid 1 cap 05/11/24 10:25 05/13/24 09:15 Vitamin B Cmplx/Vit C/Folic Ac 1 Capsule PO 1 cap DAILY SHANE Administration Radiology Results: ITS Impressions Head CT 05/10/24 19:17 IMPRESSION: No acute intracranial findings. Chest X-Ray 05/11/24 18:36 IMPRESSION: Left basal atelectasis versus pneumonia. Labs Labs: Laboratory Results - last 24 hr 05/12/24 05/13/24 05/13/24 17:10 04:55 05:09 WBC RBC Hgb Hct MCV MCH MCHC RDW Plt Count MPV Immature Gran % (Auto) Neut % (Auto) Lymph % (Auto) [place] % (Auto) Eos % (Auto) Baso % (Auto) Lymph # (Auto) [place] # (Auto) Eos # (Auto) Baso # (Auto) Abs Immat Gran (auto) Absolute Neuts (auto) Absolute Nucleated RBC Nucleated RBC % % Immature Plt Fraction APTT 76.1 H 71.2 H Sodium 139 Potassium 4.0 Chloride 104 Carbon Dioxide 29 Anion Gap 6 BUN 17 D Creatinine 5.48 H Estim Creat Clear Calc 13 Estimated GFR 10 L Glucose 88 Calcium 9.2 Magnesium 1.9 Total Bilirubin 0.4 AST 42 ALT 22 Alkaline Phosphatase 53 Total Protein 6.0 L Albumin 3.1 L 05/13/24 05:10 WBC 3.5 L RBC 2.61 L Hgb 8.4 L Hct 26.4 L MCV 101.1 H MCH 32.2 MCHC 31.8 L RDW 15.9 H Plt Count 95 L MPV 11.7 H Immature Gran % (Auto) 1.1 H Neut % (Auto) 53.3 Lymph % (Auto) 29.2 [place] % (Auto) 13.3 H Eos % (Auto) 2.8 Baso % (Auto) 0.3 Lymph # (Auto) 1.03 [place] # (Auto) 0.5 Eos # (Auto) 0.1 Baso # (Auto) 0.0 Abs Immat Gran (auto) 0.04 H Absolute Neuts (auto) 1.9 Absolute Nucleated RBC 0.000 Nucleated RBC % 0.0 % Immature Plt Fraction 5.4 APTT Sodium Potassium Chloride Carbon Dioxide Anion Gap BUN Creatinine Estim Creat Clear Calc Estimated GFR Glucose Calcium Magnesium Total Bilirubin AST ALT Alkaline Phosphatase Total Protein Albumin
[2024-05-14] VITALS (15 sets, daily range): BP systolic 105–158; BP diastolic 51–67; PULSE 52–78; RESP 16–22; TEMP 36.7–37.2; O2SAT 94–100
[2024-05-14] MEDS: PIPERACILLIN/TAZ 2.25G/NS 50ML 2.25 GM/50 ML BAG IVPB (05:09)
[2024-05-14] MEDS: FUROSEMIDE 80 MG TABLET PO ×2 (05:09→17:04)
[2024-05-14 06:02] LABS: Basophils Percent Auto 0.2 % (0.2-1.2); Eosinophils Absolute Auto 0.1 K/mm3 (0-0.3); Eosinophils Percent Auto 2.2 % (0-4.4); Hematocrit 25.5 % (42.0-52.0); Hemoglobin 8.4 g/dL (14.0-18.0); Immature Granulocyte Absolute 0.09 K/mm3 (0.00-0.031); Immature Platelet Fraction Pct 3.8 % (0.9-11.2); Immature Reticulocyte Fraction 21.2 % (3.0-15.9); Lymphocytes Absolute Auto 1.24 K/mm3 (0.9-3.2); Lymphocytes Percent Auto 26.9 % (18.3-44.2); Mean Corpuscular HGB Conc 32.9 g/dl (32-36); Mean Corpuscular Hemoglobin 32.6 pg (26-34); Mean Corpuscular Volume 98.8 fl (80-100); Mean Platelet Volume 11.3 fl (7.4-10.4); Monocytes Absolute Auto 0.6 K/mm3 (0.1-0.6); Monocytes Percent Auto 11.9 % (2.6-8.5); Neutrophils Absolute Auto 2.6 K/mm3 (1.3-6.7); Neutrophils Percent Auto 56.8 % (45.5-73.1); Platelet Count Result 124 k/mm3 (150-375); Red Blood Count 2.58 M/mm3 (4.6-6.20); Red Cell Distribution Width 15.6 % (11.5-14.5); Reticulocyte Percent 1.32 % (0.7-4.3); Reticulocytes Absolute 0.03 10^6/uL (0.02-0.10); White Blood Count 4.6 K/mm3 (4.5-10.0)
[2024-05-14 06:07] LABS: Partial Thromboplastin Time 55.3 Seconds (22.3-36.8)
[2024-05-14 06:10] LABS: Alanine Aminotransferase 23 U/L (6-50); Albumin Level 3.2 g/dL (3.5-5.1); Alkaline Phosphatase 56 U/L (38-126); Anion Gap 10 mmol/L (4-12); Aspartate Amino Transferase 38 U/L (17-59); Bilirubin,Total 0.6 mg/dL (0.2-1.3); Blood Urea Nitrogen 26 mg/dL (9-20); Calcium 9.2 mg/dL (8.4-10.2); Carbon Dioxide 25 mmol/L (22-30); Chloride 102 mmol/L (98-107); Estimated CRCL calculation 10 ml/min; Estimated Glomerular Filt Rate 7; Glucose 84 mg/dL (65-110); Potassium 4.1 mmol/L (3.4-5.0); Sodium 137 mmol/L (137-145)
[2024-05-14] MEDS: HEPARIN SOD/D5W 100 UNITS/ML 25,000 UNITS/250 ML BAG 13 UNITS IV CONT (06:16)
[2024-05-14] MEDS: HEPARIN SODIUM 5,000 UNITS/ML VIAL 7000 UNITS IV PUSH (06:16)
[2024-05-14 07:45] LABS: Glucose Point of Care 83 mg/dl (65-105)
[2024-05-14] MEDS: TENAPANOR 30 MG 30 EACH PO ×2 (09:52→17:05)
[2024-05-14] MEDS: ASPIRIN 81 MG ENTERIC TABLET PO (09:54)
[2024-05-14] MEDS: SEVELAMER CARBONATE 800 MG TABLET PO ×3 (09:54→16:58)
[2024-05-14] MEDS: IRBESARTAN 150 MG TABLET 300 MG PO (09:54)
[2024-05-14] MEDS: NIFEdipine 30 MG TAB.ER.24 60 MG PO ×2 (09:54→21:43)
[2024-05-14] MEDS: ATORVASTATIN 40 MG TABLET 80 MG PO (09:54)
[2024-05-14] MEDS: allopurinoL 100 MG TABLET PO (09:55)
[2024-05-14] MEDS: MUPIROCIN 2% OINT 22 GM TUBE 1 APPLIC TOPICAL ×2 (09:55→21:42)
[2024-05-14] MEDS: VITAMIN B CMPLX/VIT C/FOLIC AC 1 CAPSULE 1 CAP PO (09:55)
[2024-05-14] MEDS: TRIAMCINOLONE ACET 0.5% CREAM 15 GM TUBE 1 APPLIC TOPICAL ×2 (09:55→21:42)
[2024-05-14] MEDS: MICONAZOLE NITRATE 2% CREAM 30 GM TUBE 1 APPLIC TOPICAL ×2 (09:55→21:42)
[2024-05-14] MEDS: DOCUSATE SODIUM 100 MG CAPSULE PO (09:56)
[2024-05-14 11:16] LABS: Glucose Point of Care 98 mg/dl (65-105)
--- NOTE | 2024-05-14 11:32 | PM.PNNEP ---
Subjective Date/time seen: 05/14/24 11:32 Interval history: Follow-up for end stage renal disease on hemodialysis. Chart reviewed since last seen -- Objective Data Vital Signs Vital Signs: Vital Signs Temp Pulse Resp BP Pulse Ox O2 Del Method 05/14/24 11:32 98.0 F 64 16 128/66 98 05/14/24 10:00 52 L 05/14/24 08:00 74 05/14/24 08:00 66 16 94 Room Air 05/14/24 07:42 98.9 F 66 16 105/51 L 94 05/14/24 06:00 60 05/14/24 05:05 98.5 F 65 18 126/56 L 100 05/14/24 05:00 Room Air 05/14/24 04:00 61 05/14/24 01:57 57 L 05/14/24 00:00 58 L 05/14/24 00:00 Room Air 05/13/24 22:53 98.8 F 54 L 18 108/45 L 99 05/13/24 22:00 50 L 05/13/24 20:00 58 L 05/13/24 20:00 Room Air 05/13/24 19:44 97.8 F 54 L 18 141/69 H 98 Intake/Output Intake/Output: Intake & Output 05/11/24 05/12/24 05/13/24 05/14/24 23:59 23:59 23:59 23:59 Intake Total 740.0 1297.2 2222.8 1830.5 Output Total 0 0 Balance 740.0 1297.2 2222.8 1830.5 Meds/Results Medications: Active Medications Generic Name Dose Route Start Last Admin Trade Name Freq PRN Reason Stop Dose Admin Acetaminophen 650 mg 05/10/24 23:40 05/12/24 23:02 Acetaminophen 325 Mg Tablet PO 650 mg Q4H PRN Administration Mild Pain (1-3) or Fever Albuterol/Ipratropium 3 ml 05/11/24 03:38 Ipratropium 0.5 Mg/Albuterol Sulfate 2.5 Mg Ampul.Neb 3 Ml INHALATION Q4HRT PRN shortness of breath/Wheezing Allopurinol 100 mg 05/11/24 10:25 05/14/24 09:55 Allopurinol 100 Mg Tablet PO 100 mg DAILY SHANE Administration Amoxicillin/Clavulanate Potassium 1 tablet 05/14/24 21:00 Amoxicillin/Clavulanate K 500-125 Mg Tab PO 05/15/24 21:01 Q12HR [facility] Aspirin 81 mg 05/11/24 10:25 05/14/24 09:54 Aspirin 81 Mg Enteric Tablet PO 81 mg DAILY [facility] Administration Atorvastatin Calcium 80 mg 05/11/24 10:25 05/14/24 09:54 Atorvastatin 40 Mg Tablet PO 80 mg DAILY [facility] Administration Benzonatate 200 mg 05/11/24 10:08 Benzonatate 100 Mg Capsule PO TID PRN cough Docusate Sodium 100 mg 05/11/24 10:25 05/14/24 17:03 Docusate Sodium 100 Mg Capsule PO Not Given BID [facility] Ergocalciferol 50,000 units 06/10/24 09:00 Ergocalciferol 50,000 Units Capsule PO MONTHLY [facility] Furosemide 80 mg 05/11/24 18:00 05/14/24 17:04 Furosemide 80 Mg Tablet PO 80 mg Q12H [facility]ANE Administration Guaifenesin/Dextromethorphan 10 ml 05/11/24 03:38 Guaifenesin/Dextromethorphan 10 Ml Udc PO Q4H PRN Cough Heparin Sodium (Porcine) 7,000 units 05/10/24 22:56 05/14/24 06:16 Heparin Sodium 5,000 Units/Ml Vial IV PUSH 7,000 units PRN PRN Administration aPTT less than 55 seconds Heparin Sodium (Porcine) 3,500 units 05/10/24 22:56 Heparin Sodium 5,000 Units/Ml Vial IV PUSH PRN PRN aPTT 55 - 70 seconds Heparin Sodium/Dextrose 25,000 units in 250 mls @ 13 mls/hr 05/10/24 23:00 05/14/24 15:25 Heparin Sodium/D5w 100 Units/Ml IV CONT 1,300 units/hr .[id number] [facility]ANE 13 mls/hr Titration Protocol 1,300 UNITS/HR Albumin Human 50 mls @ 999 mls/hr 05/12/24 06:17 Albutein IVPB 06/11/24 06:16 Q10M PRN HYPOTENSION Irbesartan 300 mg 05/11/24 10:25 05/14/24 09:54 Irbesartan 150 Mg Tablet PO 300 mg DAILY [facility] Administration Melatonin 5 mg 05/11/24 03:38 05/12/24 23:02 Melatonin 5 Mg Tablet PO 5 mg HS PRN Administration Insomnia Miconazole Nitrate 1 applic 05/11/24 10:30 05/14/24 09:55 Miconazole Nitrate 2% Cream 30 Gm Tube TOPICAL 1 applic Q12HR [facility] Administration Mupirocin 1 applic 05/11/24 10:25 05/14/24 09:55 Mupirocin 2% Oint 22 Gm Tube TOPICAL 1 applic Q12HR [facility] Administration Nifedipine 60 mg 05/11/24 10:10 05/14/24 09:54 Nifedipine 30 Mg Tab.Er.24 PO 60 mg Q12HR [facility] Administration Home Med (Tenapanor 30 mg 05/11/24 19:15 05/14/24 17:05 [Xphozah] 30 Mg PO 06/10/24 19:14 30 mg Tablet) BIDWM SHANE Administration Ondansetron HCl 4 mg 05/10/24 23:40 Ondansetron Inj 4 Mg/2 Ml Vial IV PUSH Q4H PRN Nausea Polyethylene Glycol 17 gm 05/11/24 03:38 Polyethylene Glycol 3350 17 Gm Powd.Pack PO QAM PRN Constipation Prochlorperazine Edisylate 10 mg 05/11/24 03:38 Prochlorperazine Edisylate 10 Mg/2 Ml Vial IV PUSH Q6H PRN Nausea And Vomiting Sevelamer Carbonate 800 mg 05/11/24 10:25 05/14/24 16:58 Sevelamer Carbonate 800 Mg Tablet PO 06/10/24 10:24 800 mg TID SHANE Administration Triamcinolone Acetonide 1 applic 05/11/24 10:30 05/14/24 09:55 Triamcinolone Acet 0.5% Cream 15 Gm Tube TOPICAL 1 applic Q12HR [facility] Administration Vitamin B Complex/Folic Acid 1 cap 05/11/24 10:25 05/14/24 09:55 Vitamin B Cmplx/Vit C/Folic Ac 1 Capsule PO 1 cap DAILY SHANE Administration Radiology Results: ITS Impressions Head CT 05/10/24 19:17 IMPRESSION: No acute intracranial findings. Chest X-Ray 05/11/24 18:36 IMPRESSION: Left basal atelectasis versus pneumonia. Labs Labs: Laboratory Tests 05/14/24 05:46 05/14/24 05:46 Calcium 9.2 Magnesium 2.0 Total Bilirubin 0.6 AST 38 ALT 23 Alkaline Phosphatase 56 Total Protein 6.0 L Albumin 3.2 L
[2024-05-14 13:34] LABS: Partial Thromboplastin Time 180.1 Seconds (22.3-36.8)
--- NOTE | 2024-05-14 14:16 | PM.IMPN ---
Progress Note: A&P Assessment and Plan (1) Acute metabolic encephalopathy: Code(s): G93.41 - Metabolic encephalopathy Status: Acute (2) Fever of unknown origin (FUO): Code(s): R50.9 - Fever, unspecified Status: Acute (3) New onset a-fib: Code(s): I48.91 - Unspecified atrial fibrillation Status: Acute (4) End stage chronic kidney disease: Code(s): N18.6 - End stage renal disease Status: Acute Plan Acute and principal conditions 1. Disquilebrium syndrome. improved 2. Elevated troponin. 2. FUO Rx: Blood culture; anuric (no urine samples) Zosyn; Cardiology consulted; on Heparin gtt CRP, ESR Chronic and stable 1. ESRD on HD-TTS 2. Obesity. BMI 300 3. Hypertension. 4. Dyslipidemia. 5. Gout. Miscellaneous care. 1. Code status. Full 2. VTE prophylaxis. SCDs; Heparin gtt 3. Nutrition. Renal diet patient still waiting for the bed, on 05/12 masseur/masseuse discuss with patient family and recommended to transfer the hospital for EP evaluation and further recommendation to follow, it is high risk to take the patient home, family has agreed to keep patient in the hospital until transfer, on 05/12 Patient was seen by the lease administrator and patient had a dialysis on 05/12, there were no events and patient is clinically stable. patient had cardiac ECHO today, results pending, will follow up, Patient remains clinically stable there were no events last night still waiting for the bed at [facility] will continue to monitor. Subjective Date/time seen: 05/14/24 14:16 Interval history: Chief Complaint: 1.Confusion. Post-HD 2. Fatigue H&P-Narrative: Oscar Barker is an 78 yo M with a Mhx significant for gout, dyslipidemia, Hypertension, ESRD on HD-TTS, After undergoing his routine HD session hours [employer], he developed an altered mental status; it was aggravated by verbal stimuli; no known alleviating factors, associated with a confused mentation and fever. He did not have any episodes of chest pain, headaches, vomiting flank pain, dysuria, skin/joint changes, cough or falls. He resides alone, does not smoke/chew tobacco, drink alcohol or consume recreational/illicit drugs; he is sedentary and is wheelchair bound for most parts of his day. patient with elevated tropes was seen by the masseur/masseuse no ischemic work up was recommended however patient bradycardia with Mobitz type 1 and type 2 concerning possible heart block and recommending to transfer the patient to [facility] for EP consult. did call the transfer line patient is accepted by the hospital and waiting for a bed. patient still waiting for the bed, on 05/12 masseur/masseuse discuss with patient family and recommended to transfer the hospital for EP evaluation and further recommendation to follow, it is high risk to take the patient home, family has agreed to keep patient in the hospital until transfer, on 05/12 Patient was seen by the lease administrator and patient had a dialysis on 05/12, there were no events and patient is clinically stable. patient had cardiac ECHO today, results pending, will follow up, Patient remains clinically stable there were no events last night still waiting for the bed at [facility] will continue to monitor. Review of Systems Review of Systems: Complete review of systems was performed and negative other than those mentioned in HPI Exam Narrative: Patient is comfortable, NAD HEENT: eyes are clear and none icteric LUNGS:CTA HEART: RR S1S2 ABD: BS+, Soft and nontender Lower extremities: no edema SKIN: nonjaundiced Neuro: grossly intact. Objective Data Vital Signs Vital Signs: Vital Signs - 24 hr 05/13/24 16:00 05/13/24 16:00 05/13/24 16:00 Temperature 36.5 C Pulse Rate 52 L 61 Respiratory Rate 18 Blood Pressure 140/66 Pulse Oximetry 100 Oxygen Delivery Room Air 05/13/24 18:00 05/13/24 19:44 05/13/24 20:00 Temperature 36.6 C Pulse Rate 62 54 L Respiratory Rate 18 Blood Pressure 141/69 H Pulse Oximetry 98 Oxygen Delivery Room Air 05/13/24 20:00 05/13/24 22:00 05/13/24 22:53 Temperature 37.1 C Pulse Rate 58 L 50 L 54 L Respiratory Rate 18 Blood Pressure 108/45 L Pulse Oximetry 99 Oxygen Delivery 05/14/24 00:00 05/14/24 00:00 05/14/24 01:57 Temperature Pulse Rate 58 L 57 L Respiratory Rate Blood Pressure Pulse Oximetry Oxygen Delivery Room Air 05/14/24 04:00 05/14/24 05:00 05/14/24 05:05 Temperature 36.9 C Pulse Rate 61 65 Respiratory Rate 18 Blood Pressure 126/56 L Pulse Oximetry 100 Oxygen Delivery Room Air 05/14/24 06:00 05/14/24 07:42 05/14/24 08:00 Temperature 37.2 C Pulse Rate 60 66 66 Respiratory Rate 16 16 Blood Pressure 105/51 L Pulse Oximetry 94 94 Oxygen Delivery Room Air 05/14/24 08:00 05/14/24 11:38 Temperature 36.7 C Pulse Rate 74 64 Respiratory Rate 16 Blood Pressure 128/66 Pulse Oximetry 98 Oxygen Delivery Intake/Output Intake/Output: Intake & Output 05/11/24 05/12/24 05/13/24 05/14/24 23:59 23:59 23:59 23:59 Intake Total 740.0 1297.2 2222.8 947.1 Output Total 0 0 Balance 740.0 1297.2 2222.8 947.1 Meds/Results Medications: Active Medications Generic Name Dose Route Start Last Admin Trade Name Freq PRN Reason Stop Dose Admin Acetaminophen 650 mg 05/10/24 23:40 05/12/24 23:02 Acetaminophen 325 Mg Tablet PO 650 mg Q4H PRN Administration Mild Pain (1-3) or Fever Albuterol/Ipratropium 3 ml 05/11/24 03:38 Ipratropium 0.5 Mg/Albuterol Sulfate 2.5 Mg Ampul.Neb 3 Ml INHALATION Q4HRT PRN shortness of breath/Wheezing Allopurinol 100 mg 05/11/24 10:25 05/14/24 09:55 Allopurinol 100 Mg Tablet PO 100 mg DAILY SHANE Administration Aspirin 81 mg 05/11/24 10:25 05/14/24 09:54 Aspirin 81 Mg Enteric Tablet PO 81 mg DAILY SHANE Administration Atorvastatin Calcium 80 mg 05/11/24 10:25 05/14/24 09:54 Atorvastatin 40 Mg Tablet PO 80 mg DAILY SHANE Administration Benzonatate 200 mg 05/11/24 10:08 Benzonatate 100 Mg Capsule PO TID PRN cough Docusate Sodium 100 mg 05/11/24 10:25 05/14/24 09:56 Docusate Sodium 100 Mg Capsule PO 100 mg BID SHANE Administration Ergocalciferol 50,000 units 06/10/24 09:00 Ergocalciferol 50,000 Units Capsule PO MONTHLY SHANE Furosemide 80 mg 05/11/24 18:00 05/14/24 05:09 Furosemide 80 Mg Tablet PO 80 mg Q12H SHANE Administration Guaifenesin/Dextromethorphan 10 ml 05/11/24 03:38 Guaifenesin/Dextromethorphan 10 Ml Udc PO Q4H PRN Cough Heparin Sodium (Porcine) 7,000 units 05/10/24 22:56 05/14/24 06:16 Heparin Sodium 5,000 Units/Ml Vial IV PUSH 7,000 units PRN PRN Administration aPTT less than 55 seconds Heparin Sodium (Porcine) 3,500 units 05/10/24 22:56 Heparin Sodium 5,000 Units/Ml Vial IV PUSH PRN PRN aPTT 55 - 70 seconds Heparin Sodium/Dextrose 25,000 units in 250 mls @ 13 mls/hr 05/10/24 23:00 05/14/24 08:00 Heparin Sodium/D5w 100 Units/Ml IV CONT 1,300 units/hr .[id number] SHANE 13 mls/hr Titration Protocol 1,300 UNITS/HR Piperacillin Sod/Tazobactam Sod 2.25 gm in 50 mls @ 100 mls/hr 05/11/24 06:35 05/14/24 05:09 Zosyn 2.25 Gm/Ns 50 Ml IVPB 100 mls/hr Q8HR SHANE Administration Albumin Human 50 mls @ 999 mls/hr 05/12/24 06:17 Albutein IVPB 06/11/24 06:16 Q10M PRN HYPOTENSION Irbesartan 300 mg 05/11/24 10:25 05/14/24 09:54 Irbesartan 150 Mg Tablet PO 300 mg DAILY SHANE Administration Melatonin 5 mg 05/11/24 03:38 05/12/24 23:02 Melatonin 5 Mg Tablet PO 5 mg HS PRN Administration Insomnia Miconazole Nitrate 1 applic 05/11/24 10:30 05/14/24 09:55 Miconazole Nitrate 2% Cream 30 Gm Tube TOPICAL 1 applic Q12HR SHANE Administration Mupirocin 1 applic 05/11/24 10:25 05/14/24 09:55 Mupirocin 2% Oint 22 Gm Tube TOPICAL 1 applic Q12HR SHANE Administration Nifedipine 60 mg 05/11/24 10:10 05/14/24 09:54 Nifedipine 30 Mg Tab.Er.24 PO 60 mg Q12HR SHANE Administration Home Med (Tenapanor 30 mg 05/11/24 19:15 05/14/24 09:52 [Xphozah] 30 Mg PO 06/10/24 19:14 30 mg Tablet) BIDWM SHANE Administration Ondansetron HCl 4 mg 05/10/24 23:40 Ondansetron Inj 4 Mg/2 Ml Vial IV PUSH Q4H PRN Nausea Polyethylene Glycol 17 gm 05/11/24 03:38 Polyethylene Glycol 3350 17 Gm Powd.Pack PO QAM PRN Constipation Prochlorperazine Edisylate 10 mg 05/11/24 03:38 Prochlorperazine Edisylate 10 Mg/2 Ml Vial IV PUSH Q6H PRN Nausea And Vomiting Sevelamer Carbonate 800 mg 05/11/24 10:25 05/14/24 12:20 Sevelamer Carbonate 800 Mg Tablet PO 06/10/24 10:24 800 mg TID SHANE Administration Triamcinolone Acetonide 1 applic 05/11/24 10:30 05/14/24 09:55 Triamcinolone Acet 0.5% Cream 15 Gm Tube TOPICAL 1 applic Q12HR SHANE Administration Vitamin B Complex/Folic Acid 1 cap 05/11/24 10:25 05/14/24 09:55 Vitamin B Cmplx/Vit C/Folic Ac 1 Capsule PO 1 cap DAILY SHANE Administration Radiology Results: ITS Impressions Head CT 05/10/24 19:17 IMPRESSION: No acute intracranial findings. Chest X-Ray 05/11/24 18:36 IMPRESSION: Left basal atelectasis versus pneumonia. Labs Labs: Laboratory Results - last 24 hr 05/14/24 05/14/24 05/14/24 05:46 07:42 11:14 WBC 4.6 RBC 2.58 L Hgb 8.4 L Hct 25.5 L MCV 98.8 MCH 32.6 MCHC 32.9 RDW 15.6 H Plt Count 124 L MPV 11.3 H Immature Gran % (Auto) 2.0 H Neut % (Auto) 56.8 Lymph % (Auto) 26.9 [place] % (Auto) 11.9 H Eos % (Auto) 2.2 Baso % (Auto) 0.2 Lymph # (Auto) 1.24 [place] # (Auto) 0.6 Eos # (Auto) 0.1 Baso # (Auto) 0.0 Abs Immat Gran (auto) 0.09 H Absolute Neuts (auto) 2.6 Absolute Nucleated RBC 0.000 Nucleated RBC % 0.0 % Immature Plt Fraction 3.8 Absolute Retic 0.03 Percent Retic 1.32 Immature Retic Fraction 21.2 H Retic Hgb Content 33.0 APTT 55.3 H Sodium 137 Potassium 4.1 Chloride 102 Carbon Dioxide 25 Anion Gap 10 BUN 26 H Creatinine 7.57 H Estim Creat Clear Calc 10 Estimated GFR 7 L Glucose 84 POC Capillary Glucose 83 98 Calcium 9.2 Magnesium 2.0 Total Bilirubin 0.6 AST 38 ALT 23 Alkaline Phosphatase 56 Total Protein 6.0 L Albumin 3.2 L 05/14/24 12:36 WBC RBC Hgb Hct MCV MCH MCHC RDW Plt Count MPV Immature Gran % (Auto) Neut % (Auto) Lymph % (Auto) [place] % (Auto) Eos % (Auto) Baso % (Auto) Lymph # (Auto) [place] # (Auto) Eos # (Auto) Baso # (Auto) Abs Immat Gran (auto) Absolute Neuts (auto) Absolute Nucleated RBC Nucleated RBC % % Immature Plt Fraction Absolute Retic Percent Retic Immature Retic Fraction Retic Hgb Content APTT 180.1 H* Sodium Potassium Chloride Carbon Dioxide Anion Gap BUN Creatinine Estim Creat Clear Calc Estimated GFR Glucose POC Capillary Glucose Calcium Magnesium Total Bilirubin AST ALT Alkaline Phosphatase Total Protein Albumin
[2024-05-14 15:00] LABS: Partial Thromboplastin Time 98.7 Seconds (22.3-36.8)
[2024-05-14] MEDS: LOPERAMIDE HCL 2 MG CAPSULE 4 MG PO (16:58)
[2024-05-14 19:57] LABS: Partial Thromboplastin Time 61.7 Seconds (22.3-36.8)
[2024-05-14] MEDS: HEPARIN SODIUM 5,000 UNITS/ML VIAL 3500 UNITS IV PUSH (21:43)
[2024-05-14] MEDS: AMOXICILLIN/CLAVULANATE K 500-125 MG TAB 1 TABLET PO (21:43)
[2024-05-15] VITALS (28 sets, daily range): BP systolic 109–154; BP diastolic 55–72; PULSE 47–66; RESP 18–22; TEMP 36.6–37.1; O2SAT 98–100
[2024-05-15] MEDS: HEPARIN SOD/D5W 100 UNITS/ML 25,000 UNITS/250 ML BAG 15 UNITS IV CONT (03:21)
[2024-05-15 04:11] LABS: Basophils Percent Auto 0.6 % (0.2-1.2); Eosinophils Absolute Auto 0.1 K/mm3 (0-0.3); Eosinophils Percent Auto 2.2 % (0-4.4); Hematocrit 23.7 % (42.0-52.0); Hemoglobin 7.8 g/dL (14.0-18.0); Immature Granulocyte Absolute 0.15 K/mm3 (0.00-0.031); Immature Granulocyte Percent A 3.2 % (0-0.5); Lymphocytes Absolute Auto 1.29 K/mm3 (0.9-3.2); Lymphocytes Percent Auto 27.9 % (18.3-44.2); Mean Corpuscular HGB Conc 32.9 g/dl (32-36); Mean Corpuscular Hemoglobin 32.6 pg (26-34); Mean Corpuscular Volume 99.2 fl (80-100); Mean Platelet Volume 10.9 fl (7.4-10.4); Monocytes Absolute Auto 0.6 K/mm3 (0.1-0.6); Monocytes Percent Auto 13.4 % (2.6-8.5); Neutrophils Absolute Auto 2.4 K/mm3 (1.3-6.7); Neutrophils Percent Auto 52.7 % (45.5-73.1); Nucleated Red Blood Cells Perc 0.4 % (0.0-0.2); Platelet Count Result 147 k/mm3 (150-375); Red Blood Count 2.39 M/mm3 (4.6-6.20); Red Cell Distribution Width 15.9 % (11.5-14.5); White Blood Count 4.6 K/mm3 (4.5-10.0)
[2024-05-15 04:21] LABS: Alanine Aminotransferase 22 U/L (6-50); Albumin Level 3.1 g/dL (3.5-5.1); Alkaline Phosphatase 51 U/L (38-126); Anion Gap 10 mmol/L (4-12); Aspartate Amino Transferase 30 U/L (17-59); Bilirubin,Total 0.6 mg/dL (0.2-1.3); Blood Urea Nitrogen 35 mg/dL (9-20); Calcium 9.3 mg/dL (8.4-10.2); Carbon Dioxide 24 mmol/L (22-30); Chloride 103 mmol/L (98-107); Estimated CRCL calculation 8 ml/min; Estimated Glomerular Filt Rate 6; Glucose 93 mg/dL (65-110); Magnesium 2.1 mg/dL (1.6-2.3); Potassium 3.8 mmol/L (3.4-5.0); Sodium 137 mmol/L (137-145)
[2024-05-15 06:20] LABS: Partial Thromboplastin Time > 200.0 Seconds (22.3-36.8)
[2024-05-15] MEDS: FUROSEMIDE 80 MG TABLET PO (06:33)
--- NOTE | 2024-05-15 10:55 | PM.PNNEP ---
Subjective Date/time seen: 05/15/24 10:55 Interval history: Follow-up for end stage renal disease on hemodialysis. Tolerating dialysis treatment at the time of my visit (seen on HD at 10:45AM); Objective Data Vital Signs Vital Signs: Vital Signs Temp Pulse Resp BP Pulse Ox O2 Del Method 05/15/24 10:45 61 128/59 L 05/15/24 10:30 64 131/64 05/15/24 10:15 64 135/66 05/15/24 10:00 64 131/65 05/15/24 09:50 66 132/65 05/15/24 09:15 63 134/60 05/15/24 09:00 98.8 F 66 18 133/63 05/15/24 08:00 57 L 05/15/24 07:45 97.8 F 54 L 22 H 129/63 99 05/15/24 06:00 49 L 05/15/24 04:00 63 22 H 98 Room Air 05/15/24 04:00 47 L 05/15/24 04:00 98.3 F 54 L 22 H 125/61 98 05/15/24 02:00 54 L 05/15/24 00:00 60 05/15/24 00:00 63 22 H 98 Room Air 05/14/24 23:57 98.3 F 67 22 H 150/67 H 99 05/14/24 22:00 54 L 05/14/24 20:00 58 L 05/14/24 20:00 63 22 H 98 Room Air 05/14/24 20:00 98.3 F 63 22 H 158/63 H 98 Intake/Output Intake/Output: Intake & Output 05/12/24 05/13/24 05/14/24 05/15/24 23:59 23:59 23:59 23:59 Intake Total 1297.2 2222.8 1912.8 959.0 Output Total 0 0 800 Balance 1297.2 2222.8 1912.8 159.0 Meds/Results Medications: Active Medications Generic Name Dose Route Start Last Admin Trade Name Freq PRN Reason Stop Dose Admin Acetaminophen 650 mg 05/10/24 23:40 05/12/24 23:02 Acetaminophen 325 Mg Tablet PO 650 mg Q4H PRN Administration Mild Pain (1-3) or Fever Albuterol/Ipratropium 3 ml 05/11/24 03:38 Ipratropium 0.5 Mg/Albuterol Sulfate 2.5 Mg Ampul.Neb 3 Ml INHALATION Q4HRT PRN shortness of breath/Wheezing Allopurinol 100 mg 05/11/24 10:25 05/15/24 13:54 Allopurinol 100 Mg Tablet PO 100 mg DAILY SHANE Administration Amoxicillin/Clavulanate Potassium 1 tablet 05/14/24 21:00 05/15/24 14:01 Amoxicillin/Clavulanate K 500-125 Mg Tab PO 05/15/24 21:01 1 tablet Q12HR SHANE Administration Aspirin 81 mg 05/11/24 10:25 05/15/24 13:55 Aspirin 81 Mg Enteric Tablet PO 81 mg DAILY SHANE Administration Atorvastatin Calcium 80 mg 05/11/24 10:25 05/15/24 13:54 Atorvastatin 40 Mg Tablet PO 80 mg DAILY SHANE Administration Benzonatate 200 mg 05/11/24 10:08 Benzonatate 100 Mg Capsule PO TID PRN cough Docusate Sodium 100 mg 05/11/24 10:25 05/15/24 16:49 Docusate Sodium 100 Mg Capsule PO Not Given BID SHANE Epoetin Riccardo-epbx 10,000 units 05/15/24 18:43 05/15/24 11:55 Epoetin Riccardo-Epbx 10,000 Units/Ml Vial IV PUSH 05/15/24 18:44 10,000 units ONCE ONE Administration Ergocalciferol 50,000 units 06/10/24 09:00 Ergocalciferol 50,000 Units Capsule PO MONTHLY SHANE Furosemide 80 mg 05/11/24 18:00 05/15/24 06:33 Furosemide 80 Mg Tablet PO 80 mg Q12H SHANE Administration Guaifenesin/Dextromethorphan 10 ml 05/11/24 03:38 Guaifenesin/Dextromethorphan 10 Ml Udc PO Q4H PRN Cough Heparin Sodium (Porcine) 7,000 units 05/10/24 22:56 05/14/24 06:16 Heparin Sodium 5,000 Units/Ml Vial IV PUSH 7,000 units PRN PRN Administration aPTT less than 55 seconds Heparin Sodium (Porcine) 3,500 units 05/10/24 22:56 05/15/24 16:59 Heparin Sodium 5,000 Units/Ml Vial IV PUSH 3,500 units PRN PRN Administration aPTT 55 - 70 seconds Heparin Sodium/Dextrose 25,000 units in 250 mls @ 14 mls/hr 05/10/24 23:00 05/15/24 16:57 Heparin Sodium/D5w 100 Units/Ml IV CONT 1,400 units/hr .[id number] SHANE 14 mls/hr Administration Protocol 1,400 UNITS/HR Albumin Human 50 mls @ 999 mls/hr 05/12/24 06:17 Albutein IVPB 06/11/24 06:16 Q10M PRN HYPOTENSION Irbesartan 300 mg 05/11/24 10:25 05/15/24 13:54 Irbesartan 150 Mg Tablet PO 300 mg DAILY SHANE Administration Melatonin 5 mg 05/11/24 03:38 05/12/24 23:02 Melatonin 5 Mg Tablet PO 5 mg HS PRN Administration Insomnia Miconazole Nitrate 1 applic 05/11/24 10:30 05/15/24 13:55 Miconazole Nitrate 2% Cream 30 Gm Tube TOPICAL 1 applic Q12HR SHANE Administration Mupirocin 1 applic 05/11/24 10:25 05/15/24 13:55 Mupirocin 2% Oint 22 Gm Tube TOPICAL Not Given Q12HR SHANE Nifedipine 60 mg 05/11/24 10:10 05/15/24 14:01 Nifedipine 30 Mg Tab.Er.24 PO 60 mg Q12HR SHANE Administration Home Med (Tenapanor 30 mg 05/11/24 19:15 05/15/24 16:55 [Xphozah] 30 Mg PO 06/10/24 19:14 30 mg Tablet) BIDWM SHANE Administration Ondansetron HCl 4 mg 05/10/24 23:40 Ondansetron Inj 4 Mg/2 Ml Vial IV PUSH Q4H PRN Nausea Polyethylene Glycol 17 gm 05/11/24 03:38 Polyethylene Glycol 3350 17 Gm Powd.Pack PO QAM PRN Constipation Prochlorperazine Edisylate 10 mg 05/11/24 03:38 Prochlorperazine Edisylate 10 Mg/2 Ml Vial IV PUSH Q6H PRN Nausea And Vomiting Sevelamer Carbonate 800 mg 05/11/24 10:25 05/15/24 16:54 Sevelamer Carbonate 800 Mg Tablet PO 06/10/24 10:24 800 mg TID SHANE Administration Triamcinolone Acetonide 1 applic 05/11/24 10:30 05/15/24 13:55 Triamcinolone Acet 0.5% Cream 15 Gm Tube TOPICAL Not Given Q12HR SHANE Vitamin B Complex/Folic Acid 1 cap 05/11/24 10:25 05/15/24 13:57 Vitamin B Cmplx/Vit C/Folic Ac 1 Capsule PO 1 cap DAILY SHANE Administration Radiology Results: ITS Impressions Head CT 05/10/24 19:17 IMPRESSION: No acute intracranial findings. Chest X-Ray 05/11/24 18:36 IMPRESSION: Left basal atelectasis versus pneumonia. Labs Labs: Laboratory Tests 05/15/24 03:58 05/15/24 03:58 Calcium 9.3 Magnesium 2.1 Total Bilirubin 0.6 AST 30 ALT 22 Alkaline Phosphatase 51 Total Protein 6.0 L Albumin 3.1 L
[2024-05-15] MEDS: EPOETIN ALFA-EPBX 10,000 UNITS/ML VIAL 10000 UNITS IV PUSH (11:55)
[2024-05-15] MEDS: allopurinoL 100 MG TABLET PO (13:54)
[2024-05-15] MEDS: ATORVASTATIN 40 MG TABLET 80 MG PO (13:54)
[2024-05-15] MEDS: IRBESARTAN 150 MG TABLET 300 MG PO (13:54)
[2024-05-15] MEDS: SEVELAMER CARBONATE 800 MG TABLET PO ×2 (13:54→16:54)
[2024-05-15] MEDS: ASPIRIN 81 MG ENTERIC TABLET PO (13:55)
[2024-05-15] MEDS: MICONAZOLE NITRATE 2% CREAM 30 GM TUBE 1 APPLIC TOPICAL (13:55)
[2024-05-15] MEDS: VITAMIN B CMPLX/VIT C/FOLIC AC 1 CAPSULE 1 CAP PO (13:57)
[2024-05-15] MEDS: AMOXICILLIN/CLAVULANATE K 500-125 MG TAB 1 TABLET PO (14:01)
[2024-05-15] MEDS: NIFEdipine 30 MG TAB.ER.24 60 MG PO (14:01)
[2024-05-15 16:25] LABS: Partial Thromboplastin Time 68.9 Seconds (22.3-36.8)
--- NOTE | 2024-05-15 16:32 | P.TS_ITS ---
Transfer Discharge Sum: Prov Provider Date of admission: 05/10/24 23:40 Primary care physician: Harris Aranda MD Admitting clinician: Josue Haile MD Consults: 05/10/24 Consult to Physician Routine Comment: Consulting Provider: Sage Gilbert Reason for consultation: new onset afib, elevated trop Has provider been notified: Yes 05/11/24 Consult to Physician Routine Comment: Spoke with Dr. Damico Consulting Provider: Lola Sepulveda manager call center/MD group to consult: Dr. Damico Reason for consultation: ESRD Has provider been notified: Yes DS: Admitting Diagnosis Discharge Date 05/15/24 Admitting Diagnosis 1.Confusion. Post-HD 2. Fatigue DS: Discharge Diagnosis Discharge Diagnosis (1) Acute metabolic encephalopathy: Code(s): G93.41 - Metabolic encephalopathy Status: Acute (2) New onset a-fib: Code(s): I48.91 - Unspecified atrial fibrillation Status: Acute (3) End stage chronic kidney disease: Code(s): N18.6 - End stage renal disease Status: Acute Transfer Discharge Sum: Med Medications Active and Home Medications: Home Medications ergocalciferol (vitamin D2) 1,250 mcg (50,000 unit) capsule (Vitamin D2) 1,250 mcg PO MONTHLY 06/13/20 [History Confirmed 05/11/24] fish,flax,primrose,borag oils-om3,6,9 no5 400 mg-400 mg-200 mg capsule (Derby 3-6-9 Fatty Acids) 1 cap PO DAILY 06/13/20 [History Confirmed 05/11/24] aspirin 81 mg tablet,delayed release (Adult Low Dose Aspirin) 81 mg PO DAILY 09/10/20 [History Confirmed 05/11/24] acetaminophen 325 mg capsule 650 mg PO .prn PRN fever or pain 09/12/20 [History Confirmed 05/11/24] docusate sodium 100 mg tablet 100 mg PO BID 09/12/20 [History Confirmed 05/11/24] sevelamer HCl 800 mg tablet 800 mg PO TID 09/12/20 [History Confirmed 05/11/24] irbesartan 300 mg tablet 300 mg PO DAILY #90 tabs 09/10/22 [Rx Confirmed 05/11/24] blood sugar diagnostic (Signicast Ultra Test strips) #100 strips 06/19/23 [Rx Confirmed 05/11/24] atorvastatin 80 mg tablet 80 mg PO DAILY #90 tabs 07/10/23 [Rx Confirmed 05/11/24] vitamin B complex and vitamin C no.20-folic acid 1 mg capsule (Triphrocaps) 1 cap PO DAILY #90 caps 01/25/24 [Rx Confirmed 05/11/24] mupirocin 2 % topical ointment 1 applic topical BID #22 grams 02/13/24 [Rx Confirmed 05/11/24] tenapanor 30 mg tablet (Xphozah) 30 mg PO BID 02/13/24 [History Confirmed 05/11/24] benzonatate 200 mg capsule 200 mg PO TID PRN cough #20 caps 04/02/24 [Rx Confirmed 05/11/24] allopurinol 100 mg tablet 100 mg PO DAILY #90 tabs 04/09/24 [Rx Confirmed 05/11/24] triamcinolone acetonide 0.5 % topical cream 1 applic topical BID #15 grams 04/09/24 [Rx Confirmed 05/11/24] nystatin 100,000 unit/gram topical cream 1 applic topical BID #15 grams 04/25/24 [Rx Confirmed 05/11/24] furosemide 80 mg tablet 80 mg PO Q12H 05/11/24 [History Confirmed 05/11/24] nifedipine 60 mg tablet,extended release 60 mg PO Q12H 05/11/24 [History Confirmed 05/11/24] Active Medications Acetaminophen (Acetaminophen 325 Mg Tablet) 650 mg PO Q4H PRN PRN Reason: Mild Pain (1-3) or Fever Last Admin: 05/12/24 23:02 Dose: 650 mg Albuterol/Ipratropium (Ipratropium 0.5 Mg/Albuterol Sulfate 2.5 Mg Ampul.Neb 3 Ml) 3 ml INHALATION Q4HRT PRN PRN Reason: shortness of breath/Wheezing Allopurinol (Allopurinol 100 Mg Tablet) 100 mg PO DAILY [facility] Last Admin: 05/15/24 13:54 Dose: 100 mg Amoxicillin/Clavulanate Potassium (Amoxicillin/Clavulanate K 500-125 Mg Tab) 1 tablet PO Q12HR [facility] Stop: 05/15/24 21:01 Last Admin: 05/15/24 14:01 Dose: 1 tablet Aspirin (Aspirin 81 Mg Enteric Tablet) 81 mg PO DAILY [facility] Last Admin: 05/15/24 13:55 Dose: 81 mg Atorvastatin Calcium (Atorvastatin 40 Mg Tablet) 80 mg PO DAILY [facility] Last Admin: 05/15/24 13:54 Dose: 80 mg Benzonatate (Benzonatate 100 Mg Capsule) 200 mg PO TID PRN PRN Reason: cough Docusate Sodium (Docusate Sodium 100 Mg Capsule) 100 mg PO BID [facility] Last Admin: 05/15/24 13:55 Dose: Not Given Epoetin Riccardo-epbx (Epoetin Riccardo-Epbx 10,000 Units/Ml Vial) 10,000 units IV PUSH ONCE ONE Stop: 05/15/24 18:44 Last Admin: 05/15/24 11:55 Dose: 10,000 units Ergocalciferol (Ergocalciferol 50,000 Units Capsule) 50,000 units PO MONTHLY [facility] Furosemide (Furosemide 80 Mg Tablet) 80 mg PO Q12H [facility] Last Admin: 05/15/24 06:33 Dose: 80 mg Guaifenesin/Dextromethorphan (Guaifenesin/Dextromethorphan 10 Ml Udc) 10 ml PO Q4H PRN PRN Reason: Cough Heparin Sodium (Porcine) (Heparin Sodium 5,000 Units/Ml Vial) 7,000 units IV PUSH PRN PRN PRN Reason: aPTT less than 55 seconds Last Admin: 05/14/24 06:16 Dose: 7,000 units Heparin Sodium (Porcine) (Heparin Sodium 5,000 Units/Ml Vial) 3,500 units IV PUSH PRN PRN PRN Reason: aPTT 55 - 70 seconds Last Admin: 05/14/24 21:43 Dose: 3,500 units Heparin Sodium/Dextrose (Heparin Sodium/D5w 100 Units/Ml) 25,000 units in 250 mls @ 12 mls/hr IV CONT .[id number] [facility]; Protocol Last Admin: 05/15/24 07:31 Dose: Not Given Albumin Human (Albutein) 50 mls @ 999 mls/hr IVPB Q10M PRN PRN Reason: HYPOTENSION Stop: 06/11/24 06:16 Irbesartan (Irbesartan 150 Mg Tablet) 300 mg PO DAILY [facility] Last Admin: 05/15/24 13:54 Dose: 300 mg Melatonin (Melatonin 5 Mg Tablet) 5 mg PO HS PRN PRN Reason: Insomnia Last Admin: 05/12/24 23:02 Dose: 5 mg Miconazole Nitrate (Miconazole Nitrate 2% Cream 30 Gm Tube) 1 applic TOPICAL Q12HR [facility] Last Admin: 05/15/24 13:55 Dose: 1 applic Mupirocin (Mupirocin 2% Oint 22 Gm Tube) 1 applic TOPICAL Q12HR [facility] Last Admin: 05/15/24 13:55 Dose: Not Given Nifedipine (Nifedipine 30 Mg Tab.Er.24) 60 mg PO Q12HR [facility] Last Admin: 05/15/24 14:01 Dose: 60 mg Home Med (Tenapanor [Xphozah] 30 Mg Tablet) 30 mg PO BIDWM [facility] Stop: 06/10/24 19:14 Last Admin: 05/15/24 13:56 Dose: Not Given Ondansetron HCl (Ondansetron Inj 4 Mg/2 Ml Vial) 4 mg IV PUSH Q4H PRN PRN Reason: Nausea Polyethylene Glycol (Polyethylene Glycol 3350 17 Gm Powd.Pack) 17 gm PO QAM PRN PRN Reason: Constipation Prochlorperazine Edisylate (Prochlorperazine Edisylate 10 Mg/2 Ml Vial) 10 mg IV PUSH Q6H PRN PRN Reason: Nausea And Vomiting Sevelamer Carbonate (Sevelamer Carbonate 800 Mg Tablet) 800 mg PO TID [facility] Stop: 06/10/24 10:24 Last Admin: 05/15/24 15:49 Dose: Not Given Triamcinolone Acetonide (Triamcinolone Acet 0.5% Cream 15 Gm Tube) 1 applic TOPICAL Q12HR [facility] Last Admin: 05/15/24 13:55 Dose: Not Given Vitamin B Complex/Folic Acid (Vitamin B Cmplx/Vit C/Folic Ac 1 Capsule) 1 cap PO DAILY [facility] Last Admin: 05/15/24 13:57 Dose: 1 cap Transfer Discharge Sum: Hosp Hospital Course Hospital course: Oscar Barker Jr. is a 78 year old male Oscar Barker is an 78 yo M with a Mhx significant for gout, dyslipidemia, Hypertension, ESRD on HD-TTS, After undergoing his routine HD session hours [employer], he developed an altered mental status; it was aggravated by verbal stimuli; no known alleviating factors, associated with a confused mentation and fever. He did not have any episodes of chest pain, headaches, vomiting flank pain, dysuria, skin/joint changes, cough or falls. He resides alone, does not smoke/chew tobacco, drink alcohol or consume recreational/illicit drugs; he is sedentary and is wheelchair bound for most parts of his day. patient with elevated tropes was seen by the outboard motorboat operator no ischemic work up was recommended however patient bradycardia with Mobitz type 1 and type 2 concerning possible heart block and recommending to transfer the patient to [facility] for EP consult. did call the transfer line patient is accepted by the hospital and waiting for a bed. patient still waiting for the bed, on 05/12 outboard motorboat operator discuss with patient family and recommended to transfer the hospital for EP evaluation and further recommendation to follow, it is high risk to take the patient home, family has agreed to keep patient in the hospital until transfer, on 05/12 Patient was seen by the manager mortgage and patient had a dialysis on 05/12, there were no events and patient is clinically stable. patient had cardiac ECHO today, results pending, will follow up, Patient remains clinically stable there were no events last night still waiting for the bed at [facility] will continue to monitor. patient is clinically stable, will transfer patient today for EP evaluation and treatement. patient had cardiac echo: 1. Technically difficult exam, definity contrast used to improve visualization. 2. Hyperdynamic left ventricular systolic function noted following definity contrast injection. 3. Sclerosis of the aortic valve with adequate leaflet excursion. 4. Abnormal septal motion consistent with bundle branch block. Left Ventricle Left ventricular chamber dimension is normal. Left ventricular systolic function is hyperdynamic, estimated at >70%. The left ventricular diastolic function is indeterminate. Right Ventricle Right ventricular chamber dimension is normal. Left Atria Left atrial chamber dimension is mildly enlarged. Right Atria Right atrial chamber dimension is not well visualized. Aortic Valve The aortic valve is trileaflet. There is mild aortic valve sclerosis. Pulmonic Valve The pulmonic valve is not well visualized. Mitral Valve The mitral valve has normal leaflets. Tricuspid Valve The tricuspid valve leaflets are not well visualized. Pericardium/Pleural The pericardium appears normal. Aorta The aortic root size at the sinus of Valsalva is normal. Time Spent with Patient Time attestation: Total time spent providing and/or coordinating transfer services: DS: Data Data Completed and Pending Labs on day of discharge: Labs from last 24 hours 05/15/24 05/15/24 05/15/24 16:00 05:23 03:58 WBC 4.6 RBC 2.39 L Hgb 7.8 L Hct 23.7 L MCV 99.2 MCH 32.6 MCHC 32.9 RDW 15.9 H Plt Count 147 L MPV 10.9 H Immature Gran % (Auto) 3.2 H Neut % (Auto) 52.7 Lymph % (Auto) 27.9 Wells % (Auto) 13.4 H Eos % (Auto) 2.2 Baso % (Auto) 0.6 Lymph # (Auto) 1.29 Wells # (Auto) 0.6 Eos # (Auto) 0.1 Baso # (Auto) 0.0 Abs Immat Gran (auto) 0.15 H Absolute Neuts (auto) 2.4 Absolute Nucleated RBC 0.020 H Nucleated RBC % 0.4 H APTT 68.9 H > 200.0 H* Sodium 137 Potassium 3.8 Chloride 103 Carbon Dioxide 24 Anion Gap 10 BUN 35 H Creatinine 8.89 H Estim Creat Clear Calc 8 Estimated GFR 6 L Glucose 93 Calcium 9.3 Magnesium 2.1 Total Bilirubin 0.6 AST 30 ALT 22 Alkaline Phosphatase 51 Total Protein 6.0 L Albumin 3.1 L 05/14/24 19:13 WBC RBC Hgb Hct MCV MCH MCHC RDW Plt Count MPV Immature Gran % (Auto) Neut % (Auto) Lymph % (Auto) Wells % (Auto) Eos % (Auto) Baso % (Auto) Lymph # (Auto) Wells # (Auto) Eos # (Auto) Baso # (Auto) Abs Immat Gran (auto) Absolute Neuts (auto) Absolute Nucleated RBC Nucleated RBC % APTT 61.7 H Sodium Potassium Chloride Carbon Dioxide Anion Gap BUN Creatinine Estim Creat Clear Calc Estimated GFR Glucose Calcium Magnesium Total Bilirubin AST ALT Alkaline Phosphatase Total Protein Albumin Preliminary micro results at discharge 05/11/24 06:59 Blood Culture - Preliminary Blood 05/11/24 06:44 Blood Culture - Preliminary Blood
[2024-05-15] MEDS: TENAPANOR 30 MG 30 EACH PO (16:55)
[2024-05-15] MEDS: HEPARIN SOD/D5W 100 UNITS/ML 25,000 UNITS/250 ML BAG 14 UNITS IV CONT (16:57)
[2024-05-15] MEDS: HEPARIN SODIUM 5,000 UNITS/ML VIAL 3500 UNITS IV PUSH (16:59)
[2024-05-15] MEDS: LOPERAMIDE HCL 2 MG CAPSULE 4 MG PO (17:26)
== END 2024-05-15 19:35 | disposition short-term general hospital (02) | DRG 70 ==
LOC: ANHED 05-11 00:36 → ANHIMU 05-11 15:10
PROVIDERS: Internal Medicine; Internal Medicine Nephrology; Physician Assistant; Admitting Provider Internal Medicine; Emergency Provider Student in an Organized Health Care Education/Training Program; PCP Family Medicine; Visit Provider Family Medicine
DX: G93.41 Metabolic encephalopathy (principal); N18.6 End stage renal disease; I12.0 Hypertensive chronic kidney disease with stage 5 chronic kidney disease or end stage renal disease; I48.91 Unspecified atrial fibrillation; I44.1 Atrioventricular block, second degree; D69.6 Thrombocytopenia, unspecified; D63.1 Anemia in chronic kidney disease; E78.5 Hyperlipidemia, unspecified; E66.9 Obesity, unspecified; E87.6 Hypokalemia; F41.9 Anxiety disorder, unspecified; F32.A Depression, unspecified; M10.9 Gout, unspecified; R79.89 Other specified abnormal findings of blood chemistry; Z99.3 Dependence on wheelchair; Z99.2 Dependence on renal dialysis; Z79.82 Long term (current) use of aspirin; Z20.822 Contact with and (suspected) exposure to COVID-19; Z87.891 Personal history of nicotine dependence
CPT/HCPCS: 36415; 70450; 71045; 80053; 82803; 82948; 83735; 84145; 84484; 85025; 85046; 85055; 85610; 85652; 85730; 86140; 86706; 87040; 87340; 87637; 87641; 93005; 96361; 96374; 96375; 97161; 97165; 99285; A9270; C8929; G0257; J1644; J2543; J7030; Q5105; Q9957